=== PATIENT | female | born 1965 | race Caucasian/White ===

== ENCOUNTER 2017-02-03 07:18 | Emergency (ER) | payer SELFPAY ==
[~2017-02-03] VITALS: Ht 152.4 cm; Wt 70.0 kg
[~2017-02-03 07:18] MED LIST: ALBU.5I INH; ALBU1.25 NEB; ALBU17I INH; ALPR-138 PO; LORT5TAB PO; PRED50TA PO; PRIM0.224 INH; SOMA350T PO; VENTAER INH
[2017-02-03 07:30] VITALS: BP 177/106; PULSE 84; RESP 26; TEMP 97.5; O2SAT 98
[2017-02-03] MEDS ORDERED: VENTAER INH ×2 (07:30→07:44)
[2017-02-03] MEDS ORDERED: PRED20 PO (07:44)
[2017-02-03] MEDS ORDERED: ALBU0.08 NEB (07:44)
--- NOTE | 2017-02-03 07:44 | PD ---
HPI . Shortness of breath Chief Complaint: Respiratory Symptoms Time Seen by Provider: 07:30 Travel History International Travel<30 days: No Contact w/Intl Traveler<30days: No Traveled to known affect area: No History of Present Illness HPI Patient presents stating loudly in complete sentences that she is short of breath. She reports chronic shortness of breath. She states that she ran out of her pro-air about 24 hours ago. She also states that she uses albuterol nebs but has been out of the neb solution for about a week. She states that she has a cold and has had mucus in her chest. She denies associated fever. [id number]: Chest SEVERITY: Severe DURATION: Chronic TIMING: Worse for the past 24 hours CONTEXT: Out of her pro-air ASSOCIATED SYMPTOMS: Clear sputum PFSH Past Medical History Asthma: Yes Diminished Hearing: No Musculoskeletal: Yes (Chronic back pain) Tetanus Vaccination: Unknown Influenza Vaccination: No ?: Not Menopausal: Yes Tubal Ligation: Yes Past Surgical History Section: Yes (X's 3) Social History Alcohol Use: No Tobacco Use: No Substance Use: No (Denies today) Allergies-Medications (Allergen,Severity, Reaction): Coded Allergies: Aspirin (Verified Adverse Reaction, Severe, GI upset, 02/03/17) Reported Meds & Prescriptions Reported Meds & Active Scripts Active Prednisone 20 Mg Tab 60 Mg PO DAILY 5 Days Albuterol Neb (Albuterol Sulfate) 2.5 Mg/3 Ml Neb 2.5 Mg NEB Q4HR NEB While awake Ventolin Hfa 18 GM Inh (Albuterol Sulfate) 90 Mcg/Act Aer 2 Puff INH Q4-6H PRN Review of Systems Except as stated in HPI: all other systems reviewed are Neg General / Constitutional: No: Fever, Chills Cardiovascular: No: Chest Pain or Discomfort Respiratory: Positive: Cough, Shortness of Breath, Wheezing Gastrointestinal: No: Nausea, Vomiting, Diarrhea Physical Exam Narrative GENERAL: Extremely anxious and tearful. SKIN: Warm and dry. HEAD: Atraumatic. Normocephalic. EYES: Pupils equal and round. ENT: No nasal bleeding or discharge. Mucous membranes pink and moist. NECK: Trachea midline. CARDIOVASCULAR: Regular rate and rhythm. Heart sounds are normal. RESPIRATORY: No accessory muscle use. She is able to speak in complete sentences that any respiratory distress. She does have diffuse inspiratory and expiratory wheezing. GASTROINTESTINAL: Abdomen soft, non-tender, nondistended. MUSCULOSKELETAL: No obvious deformities. No edema. NEUROLOGICAL: Awake and alert. No obvious cranial nerve deficits. Motor grossly within normal limits. Normal speech. PSYCHIATRIC: Appropriate mood and affect; insight and judgment normal. Data Data Last Documented VS Vital Signs Date Time Temp Pulse Resp B/P Pulse Ox O2 Delivery O2 Flow Rate FiO2 02/03/17 07:30 26 98 Nasal Cannula 2 02/03/17 07:30 97.5 84 177/106 Orders Albuterol-Ipratropium Neb (Duoneb Neb) (02/03/17 07:45) Prednisone (Deltasone) (02/03/17 07:45) [facility] Medical Decision Making Medical Screen Exam Complete: Yes Emergency Medical Condition: Yes Medical Record Reviewed: Yes (patient was seen here in frequently with asthma exacerbation.) Differential Diagnosis Differential diagnosis of dyspnea includes but is not limited to congestive heart failure, pneumonia, wheezing, pneumothorax, pulmonary embolism Narrative Course Patient with a history of asthma presents complaining with increased shortness of breath over the course the last 24 hours. She is out of her inhaler. Following nebs, the patient reports that her respiratory status is back to her baseline. She does have persistent expiratory wheezing. Diagnosis Primary Impression: Acute asthma exacerbation Qualified Code: J45.31 - Mild persistent asthma with acute exacerbation Scripts Prednisone 20 Mg Tab60 Mg PO DAILY 5 Days Ref 0 Prov:Krupa Snyder MD 02/03/17 Albuterol Neb 2.5 Mg/3 Ml Neb2.5 Mg NEB Q4HR NEB #60 NEBULE Ref 0 While awake Prov:Krupa Snyder MD 02/03/17 Albuterol 18 GM Inh (Ventolin Hfa 18 GM Inh)90 Mcg/Act Aer2 Puff INH Q4-6H PRN ( SHORTNESS OF BREATH) #1 INHALER Ref 0 Prov:Krupa Snyder MD 02/03/17 Disposition: 01 DISCHARGE HOME Condition: Stable Krupa Snyder MD Feb 03, 2017 07:44
[2017-02-03] MEDS ORDERED: predniSONE 20 MG TAB PO ONE (07:45)
[2017-02-03] MEDS: RESP: ALBUTEROL 2.5 MG/IPRATROPIUM 0.5 MG NEB (SCH) INH ×2 (07:50→07:51)
== END 2017-02-03 08:25 | disposition home or self-care (01) ==
LOC: PHED 07:18
DX: J45.901 Unspecified asthma with (acute) exacerbation (principal); G89.29 Other chronic pain
CPT/HCPCS: 94640; 94664; 99284; J7512

== ENCOUNTER 2017-04-04 20:30 | Emergency (ER) | payer SELFPAY ==
[~2017-04-04] VITALS: Ht 157.5 cm; Wt 72.0 kg
[~2017-04-04 20:30] MED LIST changes: -ALBU.5I INH; +ALBU0.08 NEB; -ALBU1.25 NEB; -ALBU17I INH; -ALPR-138 PO; -LORT5TAB PO; +PRED20 PO; -PRED50TA PO; -PRIM0.224 INH; -SOMA350T PO
[2017-04-04 20:45] VITALS: BP 115/82; PULSE 100; RESP 17; TEMP 98.4; O2SAT 95
[2017-04-04] MEDS ORDERED: SODIUM CHLORIDE 0.9% FLUSH 10 ML FLUSH IVF PRN (20:45)
[2017-04-04 20:54] VITALS: RESP 17; O2SAT 100
[2017-04-04 20:56] VITALS: BP 108/75; PULSE 92; RESP 16; O2SAT 100
--- NOTE | 2017-04-04 20:59 | PD ---
HPI Chief Complaint: Respiratory Distress Time Seen by Provider: 20:44 Travel History International Travel<30 days: No Contact w/Intl Traveler<30days: No Traveled to known affect area: No History of Present Illness HPI 51-year-old female presents emergency Department with shortness of breath. She has a history of asthma. She states she's been out of her rescue inhaler for the past week. She went out to the store and became short of breath approximately 20 minutes prior to arrival. EMS found her short of breath with neutral set of 100%. She was given albuterols for wheezing as well as thiamine 225 mg in route. On arrival the patient states she is feeling a lot better. She states that she has albuterol for her machine at home but it has not been working. She denies any history of chest pain fevers upper respiratory symptoms hemoptysis. States she's quit smoking approximately one year ago. PFSH Past Medical History Asthma: Yes Diminished Hearing: No Musculoskeletal: Yes (Chronic back pain) Respiratory: Yes (ASTHMA) ?: Not Menopausal: Yes Tubal Ligation: Yes Past Surgical History Section: Yes (X's 3) Social History Alcohol Use: Yes Tobacco Use: No (QUIT 2015) Substance Use: No (Denies today) Allergies-Medications (Allergen,Severity, Reaction): Coded Allergies: Aspirin (Verified Adverse Reaction, Severe, GI upset, 04/04/17) Reported Meds & Prescriptions Reported Meds & Active Scripts Active Prednisone 20 Mg Tab 60 Mg PO DAILY 5 Days Albuterol Neb (Albuterol Sulfate) 2.5 Mg/3 Ml Neb 2.5 Mg NEB Q4HR NEB While awake Ventolin Hfa 18 GM Inh (Albuterol Sulfate) 90 Mcg/Act Aer 2 Puff INH Q4-6H PRN Review of Systems Except as stated in HPI: all other systems reviewed are Neg Physical Exam Narrative GENERAL: Well-developed well-nourished no apparent distress SKIN: Focused skin assessment warm/dry. HEAD: Atraumatic. Normocephalic. EYES: Pupils equal and round. No scleral icterus. No injection or drainage. ENT: No nasal bleeding or discharge. Mucous membranes pink and moist. NECK: Trachea midline. No JVD. CARDIOVASCULAR: Regular rate and rhythm. No murmur appreciated. RESPIRATORY: No accessory muscle use. Expiratory wheezing throughout all lung lay fairly mild. Breath sounds equal bilaterally. Good air entry throughout no increased work of breathing no retractions. GASTROINTESTINAL: Abdomen soft, non-tender, nondistended. Hepatic and splenic margins not palpable. MUSCULOSKELETAL: No obvious deformities. No clubbing. No cyanosis. No edema. NEUROLOGICAL: Awake and alert. No obvious cranial nerve deficits. Motor grossly within normal limits. Normal speech. PSYCHIATRIC: Appropriate mood and affect; insight and judgment normal. Data Data Last Documented VS Vital Signs Date Time Temp Pulse Resp B/P Pulse Ox O2 Delivery O2 Flow Rate FiO2 04/04/17 21:14 97 21 04/04/17 20:56 92 16 108/75 Room Air 04/04/17 20:45 98.4 Orders Electrocardiogram (04/04/17 20:44) Basic Metabolic Panel (Bmp) (04/04/17 20:44) Complete Blood Count With Diff (04/04/17 20:44) Chest, Single Ap (04/04/17 20:44) Ecg Monitoring (04/04/17 20:44) Iv Access Insert/Monitor (04/04/17 20:44) Oximetry (04/04/17 20:44) Oxygen Administration (04/04/17 20:44) Sodium Chloride 0.9% Flush (Ns Flush) (04/04/17 20:45) Albuterol-Ipratropium Neb (Duoneb Neb) (04/04/17 21:00) Labs Laboratory Tests Test 04/04/17 21:00 White Blood Count 6.5 TH/MM3 Red Blood Count 4.87 MIL/MM3 Hemoglobin 15.6 GM/DL Hematocrit 45.8 % Mean Corpuscular Volume 94.0 FL Mean Corpuscular Hemoglobin 32.1 PG Mean Corpuscular Hemoglobin 34.1 % Concent Red Cell Distribution Width 13.4 % Platelet Count 206 TH/MM3 Mean Platelet Volume 8.4 FL Neutrophils (%) (Auto) 69.1 % Lymphocytes (%) (Auto) 17.2 % Monocytes (%) (Auto) 8.6 % Eosinophils (%) (Auto) 4.2 % Basophils (%) (Auto) 0.9 % Neutrophils # (Auto) 4.5 TH/MM3 Lymphocytes # (Auto) 1.1 TH/MM3 Monocytes # (Auto) 0.6 TH/MM3 Eosinophils # (Auto) 0.3 TH/MM3 Basophils # (Auto) 0.1 TH/MM3 CBC Comment DIFF FINAL Differential Comment Sodium Level 138 MEQ/L Potassium Level 4.2 MEQ/L Chloride Level 99 MEQ/L Carbon Dioxide Level 31.5 MEQ/L Anion Gap 8 MEQ/L Blood Urea Nitrogen 17 MG/DL Creatinine 0.89 MG/DL Estimat Glomerular Filtration 66 ML/MIN Rate Random Glucose 89 MG/DL Calcium Level 8.6 MG/DL MDM Medical Decision Making Medical Screen Exam Complete: Yes Emergency Medical Condition: Yes Interpretation(s) EKG shows normal sinus rhythm normal axis normal R-wave progression. No concerning ST T changes. Nonspecific low voltage in aVL. Intervals within normal limits. This is a normal EKG. Differential Diagnosis Asthma exacerbation, pneumonia, bronchitis, COPD. Narrative Course Patient was roomed in the emergency department, she was given additional DuoNeb treatment here. She appears well in no respiratory distress. She does have wheezing in lung lay. She was observed in the emergency department for some time and had no decline here. She states she would like to go home. Prescription written for her and discussed return to ED criteria need follow-up with primary care physician. She stable for discharge at this time. Last 24 hours Impressions Chest X-Ray 04/04/172043 Signed Impressions: Service Date/Time: Tuesday, April 04, 2017 21:07 - CONCLUSION: 1. No acute cardiopulmonary disease. Vish Stringer MD Diagnosis Primary Impression: Acute asthma exacerbation Med/Other Pt SpecificInfo: Prescription(s) given Scripts Prednisone 20 Mg Tab60 Mg PO DAILY 5 Days Ref 0 Prov:Timmy Pino MD 04/04/17 Albuterol Neb 2.5 Mg/3 Ml Neb2.5 Mg NEB Q4HR NEB #60 NEBULE Ref 0 While awake Prov:Timmy Pino MD 04/04/17 Albuterol 18 GM Inh (Ventolin Hfa 18 GM Inh)90 Mcg/Act Aer2 Puff INH Q4-6H PRN ( SHORTNESS OF BREATH) #1 INHALER Ref 1 Prov:Timmy Pino MD 04/04/17 Disposition: 01 DISCHARGE HOME Condition: Stable Timmy Pino MD April 04, 2017 20:59
[2017-04-04] MEDS ORDERED: RESP: ALBUTEROL 2.5 MG/IPRATROPIUM 0.5 MG NEB (SCH) NEB ONE (21:00)
[2017-04-04 21:14] VITALS: O2SAT 97
[2017-04-04 21:14] LABS: AUTOMATED NEUTROPHIL # 4.5 TH/MM3 (1.8-7.7); BASOPHIL # 0.1 TH/MM3 (0-0.2); BASOPHIL % 0.9 % (0.0-2.0); EOSINOPHIL # 0.3 TH/MM3 (0-0.4); EOSINOPHIL % 4.2 % (0.0-4.0); HEMATOCRIT 45.8 % (35.0-46.0); HEMO FLAGS DIFF FINAL; LYMPH % 17.2 % (9.0-44.0); LYMPHOCYTE # 1.1 TH/MM3 (1.0-4.8); MEAN CORPUSCULAR HEMOGLOBIN 32.1 PG (27.0-34.0); MEAN CORPUSCULAR HGB CONC 34.1 % (32.0-36.0); MONO % 8.6 % (0.0-8.0); NEUT % 69.1 % (16.0-70.0); PLATELET COUNT 206 TH/MM3 (150-450); RED BLOOD COUNT 4.87 MIL/MM3 (4.00-5.30); RED CELL DISTRIBUTION WIDTH 13.4 % (11.6-17.2); WHITE BLOOD COUNT 6.5 TH/MM3 (4.0-11.0)
[2017-04-04] MEDS ORDERED: VENTAER INH (21:28)
[2017-04-04] MEDS ORDERED: PRED20 PO (21:28)
[2017-04-04] MEDS ORDERED: ALBU0.08 NEB (21:28)
[2017-04-04 21:30] LABS: BICARBONATE 31.5 MEQ/L (21.0-32.0); POTASSIUM 4.2 MEQ/L (3.5-5.1)
--- NOTE | 2017-04-04 21:47 | RADRPT ---
EXAM DATE/TIME: 04/04/2017 21:07 [facility] COMPARISON: No previous studies available for comparison. INDICATIONS : Patient states she had asthma attack today. Shortness of breath. MEDICAL HISTORY : Asthma. SURGICAL HISTORY : None. ENCOUNTER: Initial ACUITY: 1 day PAIN SCORE: 0/10 LOCATION: chest FINDINGS: A single view of the chest demonstrates the lungs to be symmetrically aerated without evidence of mas s, infiltrate or effusion. The cardiomediastinal contours are unremarkable. Osseous structures are intact.CONCLUSION: 1. No acute cardiopulmonary disease. Vish Stringer MD on April 04, 2017 at 21:44 Board Certified Radiologist. This report was verified electronically.
--- NOTE | 2017-04-05 14:46 | EKG ---
Date Performed: 04/04/2017 Time Performed: 20:56:06 PTAGE: 51 years EKG: Sinus rhythm Previous ST depression has resolved NORMAL ECG PREVIOUS TRACING : 05/03/2010 05.35 DOCTOR: Mike Manzanares Interpretating Date/Time 04/05/2017 14:44:08
== END 2017-04-04 22:42 | disposition home or self-care (01) ==
LOC: NEPC 20:30
DX: J45.901 Unspecified asthma with (acute) exacerbation (principal)
CPT/HCPCS: 71010; 80048; 85025; 93005; 94664

== ENCOUNTER 2017-05-16 17:55 | Emergency (ER) | payer SELFPAY ==
[2017-05-16 17:58] VITALS: BP 110/75; PULSE 111; RESP 24; TEMP 97.8; O2SAT 92
[2017-05-16] MEDS: RESP: ALBUTEROL 2.5 MG/IPRATROPIUM 0.5 MG NEB (SCH) INH (18:13)
[2017-05-16] MEDS ORDERED: SODIUM CHLORIDE 0.9% FLUSH 10 ML FLUSH IVF PRN (18:15)
[2017-05-16] MEDS ORDERED: predniSONE 50 MG TAB PO ONE (18:15)
--- NOTE | 2017-05-16 18:16 | RADRPT ---
EXAM DATE/TIME: 05/16/2017 18:08 [facility] COMPARISON: CHEST SINGLE AP, April 04, 2017, 21:07. INDICATIONS : Short of breath. MEDICAL HISTORY : Asthma. SURGICAL HISTORY : None. ENCOUNTER: Initial ACUITY: 1 day PAIN SCORE: 7/10 LOCATION: Bilateral chest FINDINGS: Density at the right cardiophrenic angle is unchanged and may be epicardial fat-pad. Chest is otherwi se stable and clear with no evidence of effusion. Heart size and pulmonary vascularity within normal limits. CONCLUSION: Stable chest. Danish Rodriguez MD on May 16, 2017 at 18:12 Board Certified Radiologist. This report was verified electronically.
--- NOTE | 2017-05-16 18:18 | PD ---
HPI Chief Complaint: Respiratory Symptoms Time Seen by Provider: 18:01 Travel History International Travel<30 days: No Contact w/Intl Traveler<30days: No Traveled to known affect area: No History of Present Illness HPI 51-year-old female with history of asthma here for evaluation of shortness of breath/asthma exacerbation. Symptoms started this morning. Patient reports that she is out of her albuterol inhaler. Dyspnea is at rest and worse with exertion. She denies chest pain. She states that she quit smoking over a year ago. She reports that she had the flu earlier this year, and since then her asthma exacerbations have been more frequent. She has not seen a primary care physician for these frequent attacks. No known history of CAD. No history of DVT or PE. PFSH Past Medical History Asthma: Yes Diminished Hearing: No Musculoskeletal: Yes (Chronic back pain) Respiratory: Yes (ASTHMA) Menopausal: Yes Tubal Ligation: Yes Past Surgical History Section: Yes (X's 3) Social History Alcohol Use: Yes Tobacco Use: No (QUIT 2015) Substance Use: No (Denies today) Allergies-Medications (Allergen,Severity, Reaction): Coded Allergies: Aspirin (Verified Adverse Reaction, Severe, GI upset, 05/16/17) Reported Meds & Prescriptions Reported Meds & Active Scripts Active Prednisone 20 Mg Tab 60 Mg PO DAILY 5 Days Albuterol Neb (Albuterol Sulfate) 2.5 Mg/3 Ml Neb 2.5 Mg NEB Q4HR NEB While awake Ventolin Hfa 18 GM Inh (Albuterol Sulfate) 90 Mcg/Act Aer 2 Puff INH Q4-6H PRN Review of Systems Except as stated in HPI: all other systems reviewed are Neg Physical Exam Narrative GENERAL: Well-developed, well-nourished, accessory muscle use, speaking a few words at a time, audible wheezing SKIN: Focused skin assessment warm/dry. HEAD: Atraumatic. Normocephalic. EYES: Pupils equal and round. No scleral icterus. No injection or drainage. ENT: Mucous membranes pink and moist. NECK: Trachea midline. No JVD. CARDIOVASCULAR: Regular rate and rhythm. RESPIRATORY: Accessory muscle use. Tripod position. Moderate respiratory distress. Speaking a few words at a time. Inspiratory and expiratory wheezes bilaterally. No rales or rhonchi. MUSCULOSKELETAL: No obvious deformities. No clubbing. No cyanosis. No edema. NEUROLOGICAL: Awake and alert. No obvious cranial nerve deficits. Motor grossly within normal limits. Normal speech. PSYCHIATRIC: Appropriate mood and affect; insight and judgment normal. Data Data Last Documented VS Vital Signs Date Time Temp Pulse Resp B/P Pulse Ox O2 Delivery O2 Flow Rate FiO2 05/16/17 19:01 Aerosol Mask 05/16/17 18:55 105 16 118/94 91 05/16/17 17:58 97.8 Orders Iv Access Insert/Monitor (05/16/17 18:05) Ecg Monitoring (05/16/17 18:05) Oximetry (05/16/17 18:05) Oxygen Administration (05/16/17 18:05) Chest, Single Ap (05/16/17 18:05) Sodium Chloride 0.9% Flush (Ns Flush) (05/16/17 18:15) Albuterol-Ipratropium Neb (Duoneb Neb) (05/16/17 18:15) Prednisone (Deltasone) (05/16/17 18:15) Albuterol Neb (Albuterol Neb) (05/16/17 18:45) Albuterol Hfa Inh (Proair Hfa Inh) (05/16/17 20:15) MDM Medical Decision Making Medical Screen Exam Complete: Yes Emergency Medical Condition: Yes Medical Record Reviewed: Yes Differential Diagnosis Asthma exacerbation, pneumothorax, pneumonia, bronchitis, PE, ACS Narrative Course Initial vital signs show heart rate 111, blood pressure 110/75, pulse ox 92% on room air, temporal temp of 97.8F. Chest x-ray: FINDINGS: Density at the right cardiophrenic angle is unchanged and may be epicardial fat- pad. Chest is otherwise stable and clear with no evidence of effusion. Heart size and pulmonary vascularity within normal limits. CONCLUSION: Stable chest. 6:45 PM: Patient was reassessed and states she is feeling significantly improved. She still wheezing bilaterally, however she does sound improved and looks a lot more comfortable. O2 saturation is 93% on room air. Patient was provided 3 DuoNeb treatments and oral prednisone. Plan is to give her 3 more nebulizer treatments, this time with albuterol, and reassess. 8:00 PM: Patient reports that she feels significantly improved and would like to be discharged home. I will discharge her home with a prescription for albuterol and prednisone. I will give her the information to the [facility] where she should follow-up this week. She was informed on when to return to the emergency department patient verbalizes understanding and agreement with plan. Diagnosis Primary Impression: Acute asthma exacerbation Qualified Code: J45.901 - Asthma with acute exacerbation, unspecified asthma severity Referrals: [facility] 3 days Additional Instructions: Follow-up with a primary care physician this week. Take medications as prescribed. Return to the emergency department for worsening symptoms or any other concerns. Scripts Prednisone 50 Mg Tab50 Mg PO DAILY 5 Days Ref 0 Prov:Oj Moore MD 05/16/17 Albuterol 18 GM Inh (Ventolin Hfa 18 GM Inh)90 Mcg/Act Aer1 Puff INH Q4H PRN ( SHORTNESS OF BREATH) #1 INHALER Ref 0 Prov:Oj Moore MD 05/16/17 Disposition: 01 DISCHARGE HOME Condition: Stable Oj Moore MD May 16, 2017 18:18
[2017-05-16] MEDS: RESP: ALBUTEROL 2.5 MG/3 ML NEB (SCH) INH ×2 (18:45→18:58)
[2017-05-16 18:55] VITALS: BP 118/94; PULSE 105; RESP 16; O2SAT 91
[2017-05-16 20:05] VITALS: BP 117/73; PULSE 103; RESP 20; O2SAT 91
[2017-05-16] MEDS ORDERED: VENTAER INH (20:05)
[2017-05-16] MEDS ORDERED: PRED50 PO (20:05)
[2017-05-16] MEDS ORDERED: ALBUTEROL SULFATE 90 MCG/ACT HFA 8 GM INHALER INH ONE (20:15)
[2017-05-16] MEDS ORDERED: ALBUTEROL SULFATE 90 MCG/ACT HFA 18 GM INHALER INH ONE (20:15)
== END 2017-05-16 20:15 | disposition home or self-care (01) ==
LOC: PHED 17:55
DX: J45.901 Unspecified asthma with (acute) exacerbation (principal); Z87.891 Personal history of nicotine dependence
CPT/HCPCS: 71010; 94640; 94664; 99285; J7512; J7613

== ENCOUNTER 2017-09-19 04:21 | Emergency (ER) | payer SELFPAY ==
[~2017-09-19] VITALS: Ht 165.1 cm; Wt 70.5 kg
[~2017-09-19 04:21] MED LIST changes: +PRED50 PO
[2017-09-19 04:25] VITALS: BP 169/108; PULSE 90; RESP 18; TEMP 98.6; O2SAT 92
[2017-09-19] MEDS ORDERED: ONDANSETRON HCL 4 MG/2 ML VIAL IV PUSH ONE (04:30)
[2017-09-19] MEDS ORDERED: MORPHINE SULFATE 8 MG/ML INJ IV PUSH ONE (04:30)
[2017-09-19] MEDS ORDERED: RESP: ALBUTEROL 2.5 MG/IPRATROPIUM 0.5 MG NEB (SCH) NEB ONE (04:30)
[2017-09-19] MEDS ORDERED: KETOROLAC TROMETHAMINE 30 MG/ML (IVP) VIAL IV PUSH ONE (04:30)
--- NOTE | 2017-09-19 04:36 | PD ---
HPI Chief Complaint: Burn Time Seen by Provider: 04:32 Travel History International Travel<30 days: No Contact w/Intl Traveler<30days: No Traveled to known affect area: No History of Present Illness HPI 52-year-old female with COPD presents to the emergency department with thermal burn to the dorsum of the left foot. Patient states just prior to arrival to the emergency department she spilled hot tea on the dorsum of her foot that had just been taken out of the microwave. Patient presents with interrupted blister to the dorsum of the left foot. Patient states tetanus immunization within the past year. Patient rates pain 10 over 10 intensity. Patient denies other injury. Patient is taking no medications prior to arrival to the emergency department applied no medications to the foot. PFSH Past Medical History Narrative Medical Asthma COPD chronic back pain no tobacco use 1 year cocaine use; nursing notes reviewed Asthma: Yes Diminished Hearing: No Musculoskeletal: Yes (Chronic back pain) Respiratory: Yes (ASTHMA) Menopausal: Yes Tubal Ligation: Yes Past Surgical History Section: Yes (X's 3) Social History Alcohol Use: Yes Tobacco Use: No (QUIT 2015) Substance Use: No (Denies today) Allergies-Medications (Allergen,Severity, Reaction): Coded Allergies: aspirin (Unverified Adverse Reaction, Severe, GI upset, 07/03/17) Reported Meds & Prescriptions Reported Meds & Active Scripts Active Silvadene Topical (Silver Sulfadiazine) 1 % Cream 1 Applic TOPICAL DAILY 7 Days Medrol Dosepak (Methylprednisolone) 4 Mg Dspk 4 Mg PO DIRECTED Per Pharmacist direction Ventolin Hfa 18 GM Inh (Albuterol Sulfate) 90 Mcg/Act Aer 2 Puff INH Q4-6H PRN Prednisone 50 Mg Tab 50 Mg PO DAILY 5 Days Ventolin Hfa 18 GM Inh (Albuterol Sulfate) 90 Mcg/Act Aer 1 Puff INH Q4H PRN Prednisone 20 Mg Tab 60 Mg PO DAILY 5 Days Albuterol Neb (Albuterol Sulfate) 2.5 Mg/3 Ml Neb 2.5 Mg NEB Q4HR NEB While awake Ventolin Hfa 18 GM Inh (Albuterol Sulfate) 90 Mcg/Act Aer 2 Puff INH Q4-6H PRN Review of Systems Except as stated in HPI: all other systems reviewed are Neg General / Constitutional: No: Fever HENT: No: Congestion Cardiovascular: No: Chest Pain or Discomfort Respiratory: Positive: Shortness of Breath Gastrointestinal: No: Abdominal Pain Genitourinary: No: Flank Pain Musculoskeletal: Positive: Pain (left foot), No: Myalgias, Arthralgias Skin: Positive Other (left foot) Neurologic: No: Weakness Psychiatric: Positive: Anxiety Hematologic/Lymphatic: No: Lymph Node Enlargement Physical Exam Narrative GENERAL: Well-developed well-nourished female in obvious discomfort crying; GCS 15 SKIN: Warm and dry. HEAD: Normocephalic. EYES: No scleral icterus. No injection or drainage. NECK: Supple, trachea midline. No JVD or lymphadenopathy. CARDIOVASCULAR: Regular rate and rhythm without murmurs, gallops, or rubs. RESPIRATORY: Breath sounds equal bilaterally with few bilateral expiratory wheezes. No accessory muscle use. GASTROINTESTINAL: Abdomen soft, non-tender, nondistended. MUSCULOSKELETAL: No cyanosis, or edema. Attention to the left foot dorsal aspect interrupted blister sparing the intertriginous spaces 5 cm x 6 cm, BSA:1 % BACK: Nontender without obvious deformity. No CVA tenderness. Data Data Last Documented VS Vital Signs Date Time Temp Pulse Resp B/P (MAP) Pulse Ox O2 Delivery O2 Flow Rate FiO2 09/19/17 05:12 84 15 145/84 (104) 97 09/19/17 04:25 98.6 Orders Orders ^ Saline Lock (09/19/17 04:26) Ondansetron Inj (Zofran Inj) (09/19/17 04:30) Morphine Inj (Morphine Inj) (09/19/17 04:30) Albuterol-Ipratropium Neb (Duoneb Neb) (09/19/17 04:30) Ketorolac Inj (Toradol Inj) (09/19/17 04:30) Silver Sulfadia 1% Crm (50 Gm) (Silvaden (09/19/17 05:15) MDM Medical Decision Making Medical Screen Exam Complete: Yes Emergency Medical Condition: Yes Medical Record Reviewed: Yes Differential Diagnosis First-degree burn, secondary/partial thickness burn, exacerbation COPD asthma Narrative Course IV access obtained patient administered Toradol 30 mg IV, Zofran 4 mg IV, morphine sulfate 4 mg IV, DuoNeb updraft 1, cool moist hot compresses applied to dorsum of foot Wound site irrigated with paramedics Silvadene dressing applied Patient reports to her nurse positive cocaine use Diagnosis Primary Impression: Partial thickness burn of left foot Additional Impressions: H/O cocaine abuse Asthma exacerbation, mild Medication refill Referrals: Primary Care Physician 2 days Patient Instructions: Narcotic given in the ED, General Instructions Med/Other Pt SpecificInfo: Prescription(s) given Scripts Silver Sulfadiazine Topical (Silvadene Topical) 1 % Cream 1 APPLIC TOPICAL DAILY for Wound Management for 7 Days, #400 GM 0 Refills Prov: Aalina Day MD 09/19/17 Methylprednisolone Dosepak (Medrol Dosepak) 4 Mg Dspk 4 MG PO DIRECTED, #1 DSPK 0 Refills Per Pharmacist direction Prov: Alaina Day MD 09/19/17 Albuterol 18 GM Inh (Ventolin Hfa 18 GM Inh) 90 Mcg/Act Aer 2 PUFF INH Q4-6H Y for SHORTNESS OF BREATH, #1 INHALER 0 Refills Prov: Alaina Day MD 09/19/17 Disposition: 01 DISCHARGE HOME Condition: Stable Alaina Day MD Sep 19, 2017 04:36
[2017-09-19 05:12] VITALS: BP 145/84; PULSE 84; RESP 15; O2SAT 97
[2017-09-19] MEDS ORDERED: VENTAER INH (05:14)
[2017-09-19] MEDS ORDERED: SILV1CRE20 TOPICAL (05:14)
[2017-09-19] MEDS ORDERED: MEDR4PAK PO (05:14)
[2017-09-19] MEDS ORDERED: SILVER SULFADIAZINE 1% CR 50 GM JAR TOPICAL ONE (05:15)
== END 2017-09-19 06:17 | disposition home or self-care (01) ==
LOC: PHED 04:21
DX: T25.022A Burn of unspecified degree of left foot, initial encounter (principal); F14.10 Cocaine abuse, uncomplicated; J45.901 Unspecified asthma with (acute) exacerbation; J44.9 Chronic obstructive pulmonary disease, unspecified; X10.0XXA Contact with hot drinks, initial encounter; Z76.0 Encounter for issue of repeat prescription; Z87.891 Personal history of nicotine dependence
CPT/HCPCS: 16020; 94664; 96374; 96375; 99284; J1885; J2270; J2405

== ENCOUNTER 2018-11-14 10:34 | Inpatient (IN) ==
--- NOTE | 2018-11-14 11:03 | XR ---
EXAM DATE: 11/14/2018 10:58 AM EST AGE/SEX: 53 years / Female INDICATIONS: Severe shortness of breath. CLINICAL DATA: This is the patient's initial encounter. Patient reports that signs and symptoms have been present for 1 day and indicates a pain score of 0/10. MEDICAL/SURGICAL HISTORY: Asthma. None. COMPARISON: [facility] – [place], CHEST SINGLE AP, 04/04/2017. . FINDINGS: There is diffuse mild reticulonodular interstitial prominence. This may be slightly progressed from p rior exam. No evidence of consolidative infiltrate or significant effusion. Cardiac silhouette is unc hanged with stable right cardiophrenic angle density which is presumably epicardial fat. CONCLUSION: Diffuse mild interstitial prominence which appears largely chronic. Electronically signed by: Danish Rodriguez MD Board Certified Radiologist 11/14/2018 11:01 AM EST
[2018-11-14 11:22] LABS: Baso # (Auto) 0.2 th/mm3 (0.0-0.2); Baso % (Auto) 2.7 % (0.0-2.0); Eos % (Auto) 0.5 % (0.0-4.0); Hematocrit 49.2 % (35.0-46.0); Hemoglobin 16.2 gm/dL (11.6-15.3); Lymph # (Auto) 0.6 th/mm3 (1.0-4.8); Lymph % (Auto) 8.3 % (9.0-44.0); Mean Corpuscular HGB Conc 32.9 % (32.0-36.0); Mean Corpuscular Hemoglobin 31.7 pg (27.0-34.0); Mean Corpuscular Volume 96.4 fL (80.0-100.0); Mean Platelet Volume 7.2 fL (7.0-11.0); Mono # (Auto) 0.4 th/mm3 (0.0-0.9); Neut # (Auto) 6.2 th/mm3 (1.8-7.7); Neut % (Auto) 83.5 % (16.0-70.0); Platelet Count 241 th/mm3 (150-450); Red Blood Count 5.11 mil/mm3 (4.00-5.30); Red Cell Distribution Width 14.5 % (11.6-17.2); White Blood Count 7.4 th/mm3 (4.0-11.0)
[2018-11-14 11:26] LABS: Chloride 95 meq/L (98-107); Potassium 3.4 meq/L (3.5-5.1); Sodium 137 meq/L (136-145)
[2018-11-14 11:29] LABS: Calcium 8.6 mg/dL (8.5-10.1)
[2018-11-14 11:30] LABS: Activated Partial Thrombo Time 36.1 sec (23.4-31.7); Albumin 2.9 g/dL (3.4-5.0); Anion Gap 6 meq/L (5-15); Blood Urea Nitrogen 5 mg/dL (7-18); Carbon Dioxide 35.8 meq/L (21.0-32.0); Glucose,Random 111 mg/dL (74-106); INR 1.3 Ratio; Magnesium 2.1 mg/dL (1.5-2.5); Prothrombin Time 13.1 sec (9.8-11.6)
[2018-11-14 11:33] LABS: Alanine Aminotransferase 32 U/L (10-53); Aspartate Aminotransferase 24 U/L (15-37); Glomerular Filtration Rate Greater Than 89 mL/min (>89)
[2018-11-14 11:35] LABS: Total Protein 7.7 g/dL (6.4-8.2)
[2018-11-14 11:36] LABS: Alkaline Phosphatase 92 U/L (45-117)
[2018-11-14 11:49] LABS: ABG Base Excess 10.1 mmol/L (-2-2); ABG PCO2 51 mmHg (38-42); ABG PO2 54 mmHg (61-120)
[2018-11-14] MEDS ORDERED: Oseltamivir Phosphate 75 MG Capsule PO ONE (12:04)
[2018-11-14] MEDS: Sod Chloride 0.9% Inj 1,000 ML IV.CONT SCH ×3 (12:23→21:03)
--- NOTE | 2018-11-14 12:54 | ED ---
HPI General Chief complaint: Respiratory Symptoms Stated complaint: SOB Time Seen by Provider: 11/14/18 10:43 Source: patient Mode of arrival: EMS Limitations: no limitations History of Present Illness HPI narrative: This 53-year-old female is complaining of shortness of breath. She says she has been short of breath for about 3 days and is getting progressively worse. She feels weak. She has not been eating well. She has a history of bronchitis. She does smoke cigarettes. Feeling short of breath and coughing. She does use a albuterol inhaler but has run out of it. We did obtain additional history that she has opiate addiction. She smokes opiates. Her thinks that some of her agitation may be secondary to opiate withdrawal Related Data Home Medications Medication Instructions Recorded Confirmed albuterol sulfate 1 puff INHALATION Q4-6H PRN 11/14/18 11/14/18 albuterol sulfate 1.25 mg INHALATION Q4H PRN 11/14/18 11/14/18 Allergies Allergy/AdvReac Type Severity Reaction Status Date / Time aspirin AdvReac Severe GI upset Verified 11/14/18 11:30 Review of Systems Constitutional Reports body ache(s), Reports night sweats, Reports poor appetite and Reports weakness PMFSH Medical History Medical History Bronchitis (Acute) Surgical History Surgical History H/O: (Acute) Social History Social History Substance History: No History of Abuse Second Hand Smoke Exposure: Yes Smoking Status: Current every day smoker Tobacco Type: Cigarettes How Often Do You Have a Drink Containing Alcohol: Never Recent Travel in [facility] within the Last 8 Weeks: No Recent Out of Country Travel within the Last 8 Weeks: No Immunization History Tetanus Immunization: <5 Years Exam Narrative Exam Narrative: GENERAL: Thin female in moderate respiratory distress SKIN: Focused skin assessment warm/dry. HEAD: Atraumatic. Normocephalic. EYES: Pupils equal and round. No scleral icterus. No injection or drainage. ENT: No nasal bleeding or discharge. Mucous membranes pink and moist. NECK: Trachea midline. No JVD. CARDIOVASCULAR: Rapid regular rate and rhythm. No murmur appreciated. RESPIRATORY: There is accessory muscle use. There are bilateral wheezes rhonchi GASTROINTESTINAL: Abdomen soft, non-tender, nondistended. Hepatic and splenic margins not palpable. MUSCULOSKELETAL: No obvious deformities. No clubbing. No cyanosis. No edema. NEUROLOGICAL: Awake and alert. No obvious cranial nerve deficits. Motor grossly within normal limits. Normal speech. PSYCHIATRIC: Appropriate mood and affect; insight and judgment normal. Course Initial Documented Vital Signs Temperature 98.6 F 11/14/18 10:43 Pulse Rate 94 H 11/14/18 10:43 Respiratory Rate 26 H 11/14/18 10:43 Blood Pressure 171/103 H 11/14/18 10:43 Pulse Oximetry 3 L 11/14/18 10:43 Last Documented Vital Signs Temperature 98.9 F 11/14/18 12:47 Pulse Rate 120 H 11/14/18 14:22 Respiratory Rate 22 11/14/18 14:22 Blood Pressure 175/88 H 11/14/18 14:22 Pulse Oximetry 97 11/14/18 14:22 Medical Decision Making [facility] Narrative Medical decision making narrative: Chest x-ray shows increased interstitial markings but no focal infiltrate. There is influenza test is positive for influenza A. She has been given Solu-Medrol by paramedics. We have given repeated doses of albuterol. Short of breath. A blood gas shows pH of 7.44 PCO2 of 51 and PO2 of 54. Trial of BiPAP was considered and we have put it on the patient. She has not tolerated it and has taken it off is short of breath without it will. We have given a small dose of Ativan to see if this will help her tolerate the BiPAP with the understanding that it may make intubation necessary. Patient has been quite frantic and agitated. I feel she should be intubated but the patient at this time is refusing intubation. she is awake and alert we did obtain history of opiate addiction and have given some morphine. I have discussed the case with Dr. Machado the ssn/ssbn assistant navigator the patient will be transferred to [place] intensive care unit as she is at high risk of clinical deterioration Medical Screen Exam Complete: Yes Emergency Medical Condition: Yes Differential Diagnosis Differential Diagnosis: Differential includes pneumonia, COPD, CHF Lab Data Result diagrams: 11/14/18 11:10 11/14/18 11:10 Lab Results 11/14/18 11/14/18 11/14/18 Range/Units 11:10 11:10 11:10 CBC w Diff Auto diff final WBC 7.4 (4.0-11.0) th/mm3 RBC 5.11 (4.00-5.30) mil/mm3 Hgb 16.2 H (11.6-15.3) gm/dL Hct 49.2 H (35.0-46.0) % MCV 96.4 (80.0-100.0) fL MCH 31.7 (27.0-34.0) pg MCHC 32.9 (32.0-36.0) % RDW 14.5 (11.6-17.2) % Plt Count 241 (150-450) th/mm3 MPV 7.2 (7.0-11.0) fL Neut % (Auto) 83.5 H (16.0-70.0) % Lymph % (Auto) 8.3 L (9.0-44.0) % [place] % (Auto) 5.0 (0.0-8.0) % Eos % (Auto) 0.5 (0.0-4.0) % Baso % (Auto) 2.7 H (0.0-2.0) % Neut # (Auto) 6.2 (1.8-7.7) th/mm3 Lymph # (Auto) 0.6 L (1.0-4.8) th/mm3 [place] # (Auto) 0.4 (0.0-0.9) th/mm3 Eos # (Auto) 0.0 (0.0-0.4) th/mm3 Baso # (Auto) 0.2 (0.0-0.2) th/mm3 WBC Differential . Differential Comment . PT 13.1 H (9.8-11.6) sec INR 1.3 Ratio APTT 36.1 H (23.4-31.7) sec Puncture Site Patient Temperature O2 Saturation (90-100) % ABG pH (7.380-7.420) ABG pCO2 (38-42) mmHg ABG pO2 (61-120) mmHg ABG HCO3 (22-26) mmol/L ABG O2 Content (12.0-20.0) Vol % ABG Base Excess (-2-2) mmol/L ABG Methemoglobin (0-2) % [place] Test Hemoglobin (12.0-16.0) G/DL Carboxyhemoglobin (0-4) % O2 Delivery Device Liter Flow L/M Critical Value Sodium 137 (136-145) meq/L Potassium 3.4 L (3.5-5.1) meq/L Chloride 95 L (98-107) meq/L Carbon Dioxide 35.8 H (21.0-32.0) meq/L Anion Gap 6 (5-15) meq/L BUN 5 L (7-18) mg/dL Creatinine 0.50 (0.50-1.00) mg/dL Estimated GFR Greater than 89 (>89) mL/min Random Glucose 111 H (74-106) mg/dL Lactic Acid (0.4-2.0) mmol/L Calcium 8.6 (8.5-10.1) mg/dL Magnesium 2.1 (1.5-2.5) mg/dL Total Bilirubin 0.7 (0.2-1.0) mg/dL AST 24 (15-37) U/L ALT 32 (10-53) U/L Alkaline Phosphatase 92 (45-117) U/L Troponin I Less than 0.02 L (0.02-0.05) ng/mL Total Protein 7.7 (6.4-8.2) g/dL Albumin 2.9 L (3.4-5.0) g/dL Ur Collection Type Urine Color (Yellw/Straw) Urine Clarity (Clear) Urine pH (5.0-8.5) Ur Specific [place] (1.002-1.035) Urine Protein (Neg-Trace) mg/dL Urine Glucose (UA) (Negative) mg/dL Urine Ketones (Negative) mg/dL Urine Occult Blood (Negative) Urine Nitrate (Negative) Urine Bilirubin (Negative) Urine Urobilinogen (Less than 2) mg/dL Ur Leukocyte Esterase (Negative) Urine WBC (0-5) /hpf Ur Squamous Epith Cells (0-5) /hpf Urine Trichomonas (None) /hpf Micro UA Comment Ur Microscopic Review Urine Culture Comments 11/14/18 11/14/18 11/14/18 Range/Units 11:10 11:40 12:55 CBC w Diff WBC (4.0-11.0) th/mm3 RBC (4.00-5.30) mil/mm3 Hgb (11.6-15.3) gm/dL Hct (35.0-46.0) % MCV (80.0-100.0) fL MCH (27.0-34.0) pg MCHC (32.0-36.0) % RDW (11.6-17.2) % Plt Count (150-450) th/mm3 MPV (7.0-11.0) fL Neut % (Auto) (16.0-70.0) % Lymph % (Auto) (9.0-44.0) % [place] % (Auto) (0.0-8.0) % Eos % (Auto) (0.0-4.0) % Baso % (Auto) (0.0-2.0) % Neut # (Auto) (1.8-7.7) th/mm3 Lymph # (Auto) (1.0-4.8) th/mm3 [place] # (Auto) (0.0-0.9) th/mm3 Eos # (Auto) (0.0-0.4) th/mm3 Baso # (Auto) (0.0-0.2) th/mm3 WBC Differential Differential Comment PT (9.8-11.6) sec INR Ratio APTT (23.4-31.7) sec Puncture Site Right radial Patient Temperature 98.6 O2 Saturation 83 L* (90-100) % ABG pH 7.44 H (7.380-7.420) ABG pCO2 51 H* (38-42) mmHg ABG pO2 54 L* (61-120) mmHg ABG HCO3 35 H (22-26) mmol/L ABG O2 Content 18.9 (12.0-20.0) Vol % ABG Base Excess 10.1 H (-2-2) mmol/L ABG Methemoglobin 1.2 (0-2) % [place] Test Present Hemoglobin 16.4 H (12.0-16.0) G/DL Carboxyhemoglobin 5.3 H* (0-4) % O2 Delivery Device Nasal cannula Liter Flow 6.00 L/M Critical Value Yes Sodium (136-145) meq/L Potassium (3.5-5.1) meq/L Chloride (98-107) meq/L Carbon Dioxide (21.0-32.0) meq/L Anion Gap (5-15) meq/L BUN (7-18) mg/dL Creatinine (0.50-1.00) mg/dL Estimated GFR (>89) mL/min Random Glucose (74-106) mg/dL Lactic Acid 1.0 (0.4-2.0) mmol/L Calcium (8.5-10.1) mg/dL Magnesium (1.5-2.5) mg/dL Total Bilirubin (0.2-1.0) mg/dL AST (15-37) U/L ALT (10-53) U/L Alkaline Phosphatase (45-117) U/L Troponin I (0.02-0.05) ng/mL Total Protein (6.4-8.2) g/dL Albumin (3.4-5.0) g/dL Ur Collection Type Clean catch Urine Color Straw (Yellw/Straw) Urine Clarity Clear (Clear) Urine pH 8.0 (5.0-8.5) Ur Specific [place] 1.015 (1.002-1.035) Urine Protein 100 H (Neg-Trace) mg/dL Urine Glucose (UA) Negative (Negative) mg/dL Urine Ketones Trace H (Negative) mg/dL Urine Occult Blood Trace (Negative) Urine Nitrate Negative (Negative) Urine Bilirubin Negative (Negative) Urine Urobilinogen 4.0 H (Less than 2) mg/dL Ur Leukocyte Esterase Trace H (Negative) Urine WBC 0-5 (0-5) /hpf Ur Squamous Epith Cells 0-5 (0-5) /hpf Urine Trichomonas Rare H (None) /hpf Micro UA Comment Culture not ind Ur Microscopic Review Microscopic reviewed Urine Culture Comments Culture not ind Imaging Data Radiologist's impression: Chest X-Ray 11/14/18 10:43 CONCLUSION: Diffuse mild interstitial prominence which appears largely chronic. Discharge Plan Discharge Disposition Patient Disposition: Transfer To [facility] [place] [place] Discharge Condition Condition: Critical Discharge Order Discharge Orders: ED Use Only Admit Order (Routine); Ordered 11/14/18 Ordered By: Paulino Ashley Discharge Details Diagnosis: Respiratory failure Physicians Team ED Provider: Paulino Ashley Primary Care Provider: Primary Care Physici,No Attending Provider: Mohsen Machado Rxs /Orders / Referrals /Forms Prescriptions: No Action albuterol sulfate 1.25 mg/3 mL Solution For Nebulization 1.25 mg INHALATION Q4H PRN (Reason: Wheezing) RF: 0 albuterol sulfate 90 mcg/actuation Hfa Aerosol Inhaler 1 puff INHALATION Q4-6H PRN (Reason: Wheezing) RF: 0 Discharge Interventions Interventions: Vital Signs Last Done: 11/14/18 14:22 Status ED Status: With Doctor
[2018-11-14 13:06] LABS: Bilirubin,Urine Negative (Negative); Clarity,Urine Clear (Clear); Glucose,Urine (UA) Negative (Negative); Leukocyte Esterase,Urine Trace (Negative); Nitrite,Urine Negative (Negative); Specific Gravity,Urine 1.015 (1.002-1.035)
[2018-11-14 13:09] LABS: Color,Urine Straw (Yellw/Straw)
[2018-11-14] MEDS ORDERED: Succinylcholine Inj 100 MG/5 ML Syringe IV.PUSH ONE (13:13)
[2018-11-14] MEDS ORDERED: Etomidate Inj 20 MG/10 ML Ampul IV.PUSH ONE (13:13)
[2018-11-14] MEDS ORDERED: Propofol 1000 mg/100 ml Inj 1,000 MG/100 ML BOTTLE IV.CONT PRN (13:14)
[2018-11-14] MEDS ORDERED: Morphine Inj 4 MG/ML Vial IV.PUSH ONE (13:32)
[2018-11-14 13:33] LABS: Squamous Epithelial Cell,Urine 0-5 /hpf (0-5); WBC,Urine 0-5 /hpf (0-5)
[2018-11-14 13:35] LABS: Trichomonas,Urine Rare /hpf
[2018-11-14] MEDS ORDERED: Acetaminophen 325 MG Tablet PO PRN (14:27)
[2018-11-14] MEDS ORDERED: Bisacodyl 10 MG Supp RECTAL PRN (14:27)
[2018-11-14] MEDS: Azithromycin Inj 500 MG in Sodium Chlor 0.9% Inj 250 ML IV.SIG SCH (17:16)
--- NOTE | 2018-11-14 17:27 | P.HPCC ---
History of Present Illness Service: ICU Primary Care Physician: No Primary Care Physician Chief Complaint: Shortness of breath History of Present Illness: This is a 53-year-old female that presented to [facility] emergency department. Per report the patient had worsening dyspnea over the last 3 days, such that she reported to the emergency department. The patient received Ativan and morphine in the emergency room. Imaging and laboratory studies were reviewed the patient was noted to be positive for influenza a antigen Tamiflu was initiated per the patient also was noted to report chronic ingestion of opioids by inhalation/smoking. The patient's medical history is significant for asthma, chronic opioid use via inhalation. Initiation of BiPAP was refused by the patient .The patient is at extreme risk for respiratory failure the patient was emergently transferred to [facility] and admitted to the ICU. Critical care medicine was consulted for management. per upon my evaluation of the patient patient was noted to be on a nonrebreather mask O2 sat 92%. I discussed with patient the criticality of her illness and requirement necessary to utilize BiPAP as she was at risk for possible emergent intubation. The patient agreed to utilize BiPAP. Currently the patient is satting at 95-97% on BiPAP 12/5 with FiO2 of 40%. The patient is very lethargic not cooperative in obtaining history and physical information obtained from medical records and staff. - Diagnosis (1) Acute hypoxemic respiratory failure (2) Asthma (3) Influenza A (4) Chronic narcotic dependence (5) Tobacco abuse disorder Inpatient Certification: I certify that the inpatient services were ordered in accordance with Medicare regulations governing the order. This includes certification that hospital inpatient services are reasonable and necessary and in the case of services not specified as inpatient-only under 42 CFR 419.22(n), that they are appropriately provided as inpatient services in accordance to with the 2-midnight benchmark under 43 CFR 412.3(e) Estimated Total Length of Stay (Days): 5 Plans for Post Hospital Care: Not yet determined Review of Systems All other systems reviewed negative except as stated in HPI, unobtainable due to mental status PMFSH - History History Provided By: Patient - Medical History Medical History: Medical History (Last Reviewed 11/22/18 @ 08:38 by Cari Mcknight) Bronchitis - Surgical History Surgical History: Surgical History (Last Reviewed 11/22/18 @ 08:38 by Cari Mcknight) H/O: - Tobacco History Second Hand Smoke Exposure: Yes Tobacco Use In Past 30 Days: Yes Smoking Status: Current every day smoker Tobacco Type: Cigarettes - Alcohol History How Often Do You Have a Drink Containing Alcohol: Never - Substance Use History Substance History: No History of Abuse - Travel History Recent Travel in the [place] Within the Last 8 Weeks: No Recent Travel Out of the Country Within the Last 8 Weeks: No - Immunization History Tetanus Immunization: <5 Years Medications and Allergies Active Medications: Active Medications Acetaminophen (Tylenol) 650 mg PO Q6H PRN PRN Reason: Fever >101f Hydrocodone Bitart/Acetaminophen ([place] 5/325) 1 tab PO Q4H PRN PRN Reason: PAIN SCALE 1 TO 5 Al Hydroxide/Mg Hydroxide (Milk Of Soren Liq) 30 ml PO Q12H PRN PRN Reason: Mild Constipation Albuterol (Albuterol Neb (Prn)) 2.5 mg NEB Q2HR NEB PRN PRN Reason: SHORTNESS OF BREATH/WHEEZING Albuterol (Duoneb Neb (Nnamdi)) 1 ampul NEB Q4HR NEB [facility] Bisacodyl (Dulcolax Supp) 10 mg RECTAL DAILY PRN PRN Reason: SEVERE CONSITIPATION Budesonide (Pulmocort Respule Neb) 0.5 mg NEB Q12HR NEB [facility] Chlorhexidine Gluconate (Chlorhexidine 2% Cloth) 3 pack TOPICAL DAILY@0400 NNAMDI Stop: 11/20/18 03:59 Chlorhexidine Gluconate (Chlorhexidine 2% Cloth) 3 pack TOPICAL DAILY@0400 PRN PRN Reason: Extra cloth needed Stop: 11/20/18 03:59 Heparin Sodium (Porcine) (Heparin Inj) 5,000 units SQ Q12H [facility] Sodium Chloride (Ns Inj) 1,000 mls @ 100 mls/hr IV.CONT .Q10H [facility] Last Admin: 11/14/18 12:23 Dose: 100 mls/hr Propofol (Diprivan 1000 Mg/100 Ml Inj) 1,000 mg in 100 mls @ 2.04 mls/hr IV.CONT TITRATE PRN; Protocol PRN Reason: Per Protocol Sodium Chloride (Ns Inj) 1,000 mls @ 84 mls/hr IV.CONT .[id number] [facility] Azithromycin 500 mg/ Sodium (Chloride) 250 mls @ 250 mls/hr IV.SIG Q24H NNAMDI Cefepime HCl 2,000 mg/ Sodium (Chloride) 100 mls @ 200 mls/hr IV.SIG Q8H NNAMDI Lactulose (Lactulose Liq) 30 ml PO DAILY PRN PRN Reason: SEVERE CONSITIPATION Morphine Sulfate (Morphine Inj) 2 mg IV.PUSH Q2H PRN PRN Reason: PAIN SCALE 6 TO 10 Ondansetron HCl (Zofran Inj) 4 mg IV.PUSH Q6H PRN PRN Reason: NAUSEA OR VOMITING Oseltamivir Phosphate (Tamiflu) 75 mg PO BID [facility] Stop: 11/19/18 20:59 Pantoprazole Sodium (Protonix Inj) 40 mg IV.PUSH DAILY [facility] Sennosides (Senokot) 17.2 mg PO Q12H PRN PRN Reason: Moderate Constipation Sodium Chloride (Ns Flush) 2 ml IV.FLUSH BID [facility] Sodium Chloride (Ns Flush) 2 ml IV.FLUSH PRN PRN PRN Reason: FLUSH AFTER USING IV ACCESS Allergies Allergy/AdvReac Type Severity Reaction Status Date / Time aspirin AdvReac Severe GI upset Verified 11/14/18 11:30 Home Medications Medication Instructions Recorded Confirmed Type albuterol sulfate 1 puff INHALATION Q4-6H PRN 11/14/18 11/14/18 History albuterol sulfate 1.25 mg INHALATION Q4H PRN 11/14/18 11/14/18 History Results - Labs CBC & Chem 7: 11/21/18 04:55 11/21/18 04:55 Labs: Short CBC 11/14/18 Range/Units 11:10 WBC 7.4 (4.0-11.0) th/mm3 Hgb 16.2 H (11.6-15.3) gm/dL Hct 49.2 H (35.0-46.0) % Plt Count 241 (150-450) th/mm3 BMP 11/14/18 11:10 Sodium 137 Potassium 3.4 L Chloride 95 L Carbon Dioxide 35.8 H BUN 5 L Creatinine 0.50 Calcium 8.6 Cardiac Enzymes 11/14/18 Range/Units 11:10 Troponin I Less than 0.02 L (0.02-0.05) ng/mL Liver Function 11/14/18 Range/Units 11:10 Total Bilirubin 0.7 (0.2-1.0) mg/dL AST 24 (15-37) U/L ALT 32 (10-53) U/L Alkaline Phosphatase 92 (45-117) U/L Albumin 2.9 L (3.4-5.0) g/dL Urine 11/14/18 Range/Units 12:55 Urine Color Straw (Yellw/Straw) Urine Clarity Clear (Clear) Urine pH 8.0 (5.0-8.5) Ur Specific [place] 1.015 (1.002-1.035) Urine Protein 100 H (Neg-Trace) mg/dL Urine Glucose (UA) Negative (Negative) mg/dL - Imaging Impressions Chest X-Ray 11/14/18 10:43 CONCLUSION: Diffuse mild interstitial prominence which appears largely chronic. Exam Vital signs: Vital Signs 11/14/18 10:43 11/14/18 11:00 11/14/18 11:18 Temperature 98.6 F Pulse Rate 94 H 82 84 Respiratory Rate 26 H 26 H Blood Pressure 171/103 H 163/94 H Pulse Oximetry 90 L 11/14/18 11:50 11/14/18 12:38 11/14/18 12:47 Temperature 98.9 F Pulse Rate 101 H 68 Respiratory Rate 32 H 18 Blood Pressure 160/80 H Pulse Oximetry 95 94 L 11/14/18 13:13 11/14/18 14:22 11/14/18 15:39 Temperature Pulse Rate 120 H 120 H Respiratory Rate 22 22 Blood Pressure 175/88 H 174/112 H Pulse Oximetry 94 L 97 11/14/18 17:03 Temperature Pulse Rate Respiratory Rate Blood Pressure Pulse Oximetry 98 Intake & Output 11/13/18 11/14/18 11/14/18 18:59 06:59 18:59 Intake Total 200 / 200 Balance 200 / 200 Weight 68 kg Intake: IV 200 / 200 Rocephin Inj 1,000 MG In NS Inj 200 / 200 100 ML @ 200 mls/hr IV.SIG ONCE ONE Rx#:[id number] - Constitutional mild distress, average body habitus, chronically ill appearing, disheveled, somnolent - Routine HEENT Exam Head: Present: normocephalic Eye: Present: EOMI, PERRL ENT: Present: mucous membranes moist, dentition normal, nares patent - Routine Neck Exam Present: supple, full ROM - Routine Respiratory Exam Present: accessory muscle use, respiratory distress, rhonchi (coarse rhonchi), wheezes (Expiratory wheezing ) - Routine Cardiovascular Exam Present: RRR, S1, S2, tachycardia - Routine Abdominal Exam Present: soft, normoactive bowel sounds (obese) - Routine Extremities Exam Present: full ROM, pulses intact, normal capillary refill - Routine Skin Exam Present: intact, warm - Routine Neurological Exam Present: oriented X3, moving all extremities, vision grossly intact, hearing grossly intact Caprini VTE Risk Assessment Caprini VTE Risk Assessment: Moderate/High Risk (score >= 2) Caprini Risk Assessment Model: Point Value = 1 Point Value = 2 Point Value = 3 Point Value = 5 Age 41-60 Minor surgery BMI > 25 kg/m2 Swollen legs Varicose veins or History of unexplained or recurrent spontaneous Oral contraceptives or hormone replacement Sepsis (< 1 month) Serious lung disease, including pneumonia (< 1 month) Abnormal pulmonary function Acute myocardial infarction Congestive heart failure (< 1 month) History of inflammatory bowel disease Medical patient at bed rest Age 61-74 Arthroscopic surgery Major open surgery (> 45 min) Laparoscopic surgery (> 45 min) Malignancy Confined to bed (> 72 hours) Immobilizing plaster cast Central venous access Age >= 75 History of VTE Family history of VTE Factor V Leiden Prothrombin [id number] Lupus anticoagulant Anticardiolipin antibodies Elevated serum homocysteine Heparin-induced thrombocytopenia Other congenital or acquired thrombophilia Stroke (< 1 month) Elective arthroplasty Hip, pelvis, or leg fracture Acute spinal cord injury (< 1 month) Prophylaxis Regimen: Total Risk Factor Score Risk Level Prophylaxis Regimen 0-1 Low Early ambulation 2 Moderate Order ONE of the following: *Sequential Compression Device (SCD) *Heparin 5000 units SQ BID 3-4 Higher Order ONE of the following medications: *Heparin 5000 units SQ TID *Enoxaparin/Lovenox 40 mg SQ daily (WT < 150 kg, CrCl > 30 mL/min) *Enoxaparin/Lovenox 30 mg SQ daily (WT < 150 kg, CrCl > 10-29 mL/min) *Enoxaparin/Lovenox 30 mg SQ BID (WT < 150 kg, CrCl > 30 mL/min) AND/OR *Sequential Compression Device (SCD) 5 or more Highest Order ONE of the following medications: *Heparin 5000 units SQ TID (Preferred with Epidurals) *Enoxaparin/Lovenox 40 mg SQ daily (WT < 150 kg, CrCl > 30 mL/min) *Enoxaparin/Lovenox 30 mg SQ daily (WT < 150 kg, CrCl > 10-29 mL/min) *Enoxaparin/Lovenox 30 mg SQ BID (WT < 150 kg, CrCl > 30 mL/min) AND *Sequential Compression Device (SCD) Assessment and Plan - Problem List (1) Acute hypoxemic respiratory failure Code(s): J96.01 - Acute respiratory failure with hypoxia Status: Acute Onset Date: ~11/14/18 (2) Asthma Code(s): J45.909 - Unspecified asthma, uncomplicated Status: Chronic (3) Influenza A Code(s): J10.1 - Influenza due to other identified influenza virus with other respiratory manifestations Status: Acute (4) Chronic narcotic dependence Code(s): F11.20 - Opioid dependence, uncomplicated Status: Chronic (5) Tobacco abuse disorder Code(s): Z72.0 - Tobacco use Status: Chronic - Assessment and Plan Plan: Assessment This is a 53-year-old female in moderate respiratory distress with noted hypercapnic and hypoxemic respiratory distress patient is at extreme risk for deterioration with the requirement of emergent intubation. We will admit to ICU. Plan by systems: Neurologic: Chronic opioid use Patient received Ativan , and morphine in ED Monitor for narcotic withdrawal symptoms Acetaminophen 650 mg every 6 hours as needed for pain or temperature greater than 101.0 Provide morphine 2 mg every 2 hours PRN Respiratory: Acute hypoxemic and hypercapnic respiratory failure Asthma Tobacco use disorder Bronchitis Maintain O2 sat greater than 92% Duo nebs every 4 hours scheduled every 2 hours as needed Initiation of BiPAP 12/5 FiO2 40% Counseled on cessation of smoking when clinically applicable Antibiotics see below Cardiovascular: Sinus tachycardia Telemetry sinus tachycardia, resolving hypertension Continue to monitor if required will provide hydralazine PRN Renal: No Segura required -- Strict I/Os FEN/GI: Hypokalemia Monitor electrolytes per ICU protocol Electrolyte repletion per protocol Maintain n.p.o. status for now patient somnolent and on BiPAP currently Heme/ID: Influenza A Droplet precautions Tamiflu 75 mg twice daily Obtain blood and urine cultures Patient received Rocephin in the ED Empiric antibiotics cefepime and azithromycin initiated Endocrine: Low-dose glucose monitoring per ICU protocol -- SSI Prophylaxis: GI Prophylaxis Protonix DVT Prophylaxis -- SCDs heparin Lines: Peripheral IVs providing adequate access at this time. Central line if indicated Dispo: Level 3 H&P Code Status: Full Discussed Condition With: WIRE COATER at bedside (2) Asthma Qualifiers: Asthma complication type: with acute exacerbation
[2018-11-14] MEDS ORDERED: Dextrose 50% in Water 50 ML Vial IV.PUSH PRN (17:30)
[2018-11-14] MEDS: Heparin - SQ 10,000 UNITS/ML Vial SQ SCH (17:34)
[2018-11-14] MEDS ORDERED: Sod Chloride 0.9% Inj 1,000 ML IV.SIG SCH (17:45)
[2018-11-14] MEDS: Morphine Sulfate Inj 2 MG/ML Vial IV.PUSH PRN ×3 (18:08→22:55)
[2018-11-14 18:41] LABS: ABG Base Excess 7.7 mmol/L (-2-2); ABG PCO2 53 mmHg (38-42); ABG PO2 67 mmHG (61-120)
--- NOTE | 2018-11-14 19:44 | ECG ---
Date Performed: 11/14/2018 Time Performed: 10:57:08 PTAGE: 53 years EKG: Sinus rhythm Since the previous tracing, no significant change noted NORMAL ECG PREVIOUS TRACING : 04/04/2017 20.56 DOCTOR: Haven Mcfarlane Interpretating Date/Time 11/14/2018 19:41:49
[2018-11-14] MEDS: Oseltamivir Phosphate 75 MG Capsule PO SCH (21:03)
[2018-11-14] MEDS: Insulin NovoLOG Aspart Correctional Sugar Inj SQ SCH (21:03)
[2018-11-14] MEDS: hydrALAZINE HCl Inj 20 MG/ML Vial IV.PUSH PRN (22:37)
[2018-11-15] MEDS: Labetalol HCl Inj 100 MG/20 ML Vial IV.PUSH PRN ×2 (00:12→02:20)
[2018-11-15] MEDS: hydrALAZINE HCl Inj 20 MG/ML Vial IV.PUSH PRN ×5 (01:04→11:19)
[2018-11-15] MEDS: Sod Chloride 0.9% Inj 1,000 ML IV.CONT SCH ×3 (01:30→19:29)
--- NOTE | 2018-11-15 03:43 | XR ---
EXAM DATE: 11/15/2018 3:37 AM EST AGE/SEX: 53 years / Female INDICATIONS: Respiratory failure. CLINICAL DATA: This is the patient's subsequent encounter. Patient reports that signs and symptoms h ave been present for 2 days and indicates a pain score of Nonresponsive. MEDICAL/SURGICAL HISTORY: . Acute hypoxemic respiratory failure. Asthma. Influenza A. Smoker. B ronchitis. Opioid dependance. section. COMPARISON: [facility], CHEST 1V SINGLE AP, 11/14/2018. . FINDINGS: Slight parenchymal consolidation seen at the bases. No pleural effusion or pneumothorax. Heart size s table, within normal limits. Nonrebreather mask present. CONCLUSION: Minimal bibasilar consolidation. Electronically signed by: Danish Valerio MD Board Certified Radiologist 11/15/2018 3:41 AM EST
[2018-11-15] MEDS ORDERED: Chlorhexidine Gluconate 2% 1 Pack (2 Cloths) TOPICAL PRN (04:00)
[2018-11-15] MEDS: Morphine Sulfate Inj 2 MG/ML Vial IV.PUSH PRN ×4 (04:07→12:53)
[2018-11-15] MEDS: Heparin - SQ 10,000 UNITS/ML Vial SQ SCH ×2 (04:07→16:24)
[2018-11-15] MEDS: Chlorhexidine Gluconate 2% 1 Pack (2 Cloths) TOPICAL SCH (04:07)
[2018-11-15 04:39] LABS: Baso % (Auto) 0.2 % (0.0-2.0); Hematocrit 47.3 % (35.0-46.0); Hemoglobin 15.6 gm/dL (11.6-15.3); Lymph # (Auto) 0.8 th/mm3 (1.0-4.8); Mean Corpuscular HGB Conc 32.9 % (32.0-36.0); Mean Corpuscular Hemoglobin 32.8 pg (27.0-34.0); Mean Corpuscular Volume 99.6 fL (80.0-100.0); Mean Platelet Volume 7.3 fL (7.0-11.0); Mono % (Auto) 10.8 % (0.0-8.0); Neut # (Auto) 7.4 th/mm3 (1.8-7.7); Platelet Count 217 th/mm3 (150-450); Red Blood Count 4.74 mil/mm3 (4.00-5.30); Red Cell Distribution Width 15.1 % (11.6-17.2); White Blood Count 9.3 th/mm3 (4.0-11.0)
[2018-11-15 04:48] LABS: Alanine Aminotransferase 28 U/L (10-53); Albumin 2.6 g/dL (3.4-5.0); Anion Gap 8 meq/L (5-15); Aspartate Aminotransferase 25 U/L (15-37); Calcium 8.1 mg/dL (8.5-10.1); Carbon Dioxide 27.2 meq/L (21.0-32.0); Chloride 107 meq/L (98-107); Glomerular Filtration Rate Greater Than 89 mL/min (>89); Glucose,Random 93 mg/dL (74-106); Magnesium 2.2 mg/dL (1.5-2.5); Phosphorus 3.2 mg/dL (2.5-4.9); Potassium 4.1 meq/L (3.5-5.1); Sodium 142 meq/L (136-145)
[2018-11-15 04:54] LABS: Alkaline Phosphatase 92 U/L (45-117); Blood Urea Nitrogen 9 mg/dL (7-18); Total Protein 7.2 g/dL (6.4-8.2)
[2018-11-15] MEDS ORDERED: MethylPREDNISolone Sod Succinate Inj 125 MG/2 ML Vial IV.PUSH ONE (07:37)
--- NOTE | 2018-11-15 07:51 | P.PNCC ---
Subjective Subjective Remarks/Hospital Course: This is a 53-year-old female that presented to [facility] emergency department. Per report the patient had worsening dyspnea over the last 3 days, such that she reported to the emergency department. The patient received Ativan and morphine in the emergency room. Imaging and laboratory studies were reviewed the patient was noted to be positive for influenza a antigen Tamiflu was initiated per the patient also was noted to report chronic ingestion of opioids by inhalation/smoking. The patient's medical history is significant for asthma, chronic opioid use via inhalation. Initiation of BiPAP was refused by the patient .The patient is at extreme risk for respiratory failure the patient was emergently transferred to [facility] and admitted to the ICU. Critical care medicine was consulted for management. per upon my evaluation of the patient patient was noted to be on a nonrebreather mask O2 sat 92%. I discussed with patient the criticality of her illness and requirement necessary to utilize BiPAP as she was at risk for possible emergent intubation. The patient agreed to utilize BiPAP. Currently the patient is satting at 95-97% on BiPAP 12/5 with FiO2 of 40%. The patient is very lethargic not cooperative in obtaining history and physical information obtained from medical records and staff. Subjective: 11/15 Sleepy but does arouse and follow commands. She is tachypneic on BiPAP 12 /5 with respiratory rate 20-26. FiO2 is 40% with sats in the mid 90s. She has bilateral wheezing. Objective Vital Signs / I&O: Vital Signs 11/14/18 10:43 11/14/18 11:00 11/14/18 11:18 Temperature 98.6 F Pulse Rate 94 H 82 84 Respiratory Rate 26 H 26 H Blood Pressure 171/103 H 163/94 H Pulse Oximetry 90 L 11/14/18 11:50 11/14/18 12:38 11/14/18 12:47 Temperature 98.9 F Pulse Rate 101 H 68 Respiratory Rate 32 H 18 Blood Pressure 160/80 H Pulse Oximetry 95 94 L 11/14/18 13:13 11/14/18 14:22 11/14/18 15:39 Temperature Pulse Rate 120 H 120 H Respiratory Rate 22 22 Blood Pressure 175/88 H 174/112 H Pulse Oximetry 94 L 97 11/14/18 16:45 11/14/18 17:00 11/14/18 17:03 Temperature 98.4 F Pulse Rate 117 H 117 H Respiratory Rate 42 H 42 H Blood Pressure 169/104 H 169/104 H Pulse Oximetry 100 100 98 11/14/18 17:12 11/14/18 18:00 11/14/18 18:48 Temperature Pulse Rate 98 H 119 H Respiratory Rate 28 H 20 Blood Pressure 168/115 H Pulse Oximetry 93 L 92 L 11/14/18 19:00 11/14/18 20:00 11/14/18 20:02 Temperature 98.3 F Pulse Rate 108 H 112 H Respiratory Rate Blood Pressure 186/104 H 198/139 H Pulse Oximetry 95 98 97 11/14/18 20:07 11/14/18 20:23 11/14/18 20:30 Temperature Pulse Rate 121 H 102 H 99 H Respiratory Rate 28 H Blood Pressure 188/99 H 173/93 H Pulse Oximetry 96 96 11/14/18 21:00 11/14/18 21:04 11/14/18 21:30 Temperature Pulse Rate 111 H 107 H 89 Respiratory Rate Blood Pressure 186/95 H 142/89 H Pulse Oximetry 87 L 96 98 11/14/18 22:00 11/14/18 22:31 11/14/18 23:00 Temperature Pulse Rate 96 H 89 112 H Respiratory Rate Blood Pressure 151/100 H 180/102 H Pulse Oximetry 94 L 96 98 11/14/18 23:01 11/14/18 23:06 11/14/18 23:30 Temperature Pulse Rate 119 H 73 78 Respiratory Rate 22 32 H Blood Pressure 173/114 H 140/80 Pulse Oximetry 90 L 100 11/14/18 23:52 11/15/18 00:00 11/15/18 00:04 Temperature 98.3 F Pulse Rate 104 H 103 H Respiratory Rate 50 H 42 H Blood Pressure 195/110 H 192/110 H Pulse Oximetry 100 95 97 11/15/18 00:08 11/15/18 00:30 11/15/18 01:00 Temperature Pulse Rate 103 H 88 101 H Respiratory Rate 55 H 33 H 47 H Blood Pressure 189/117 H 177/113 H 190/134 H Pulse Oximetry 98 95 95 11/15/18 02:00 11/15/18 02:15 11/15/18 03:00 Temperature Pulse Rate 90 87 75 Respiratory Rate 26 H 23 32 H Blood Pressure 180/107 H 178/105 H Pulse Oximetry 91 L 93 L 95 11/15/18 03:24 11/15/18 04:00 11/15/18 04:01 Temperature 97.5 F L Pulse Rate 76 59 L 90 Respiratory Rate 19 38 H Blood Pressure 201/91 H Pulse Oximetry 96 95 11/15/18 04:17 11/15/18 05:00 11/15/18 06:00 Temperature Pulse Rate 93 H 91 H Respiratory Rate 35 H 29 H Blood Pressure 192/115 H 156/93 H Pulse Oximetry 95 94 L 93 L Intake & Output 11/14/18 11/15/18 11/15/18 18:59 06:59 18:59 Intake Total 550 / 550 2440 / 2440 Output Total 300 / 300 0 / 0 Balance 250 / 250 2440 / 2440 Weight 68 kg 71 kg Intake: IV 550 / 550 2400 / 2400 NS Inj 1,000 ML @ 84 mls/hr IV. 1300 / 1300 CONT .[id number] COLLIN Rx#: [id number] Azithromycin Inj 500 MG In NS 250 / 250 Inj 250 ML @ 250 mls/hr IV.SIG Q24H COLLIN Rx#:[id number] Maxipime Inj 2,000 MG In NS Inj 100 / 100 100 / 100 100 ML @ 200 mls/hr IV.SIG Q8H COLLIN Rx#:[id number] NS Inj 1,000 ML @ 1000 mls/hr 1000 / 1000 IV.SIG BOLUS COLLIN Rx#:[id number] Rocephin Inj 1,000 MG In NS Inj 200 / 200 100 ML @ 200 mls/hr IV.SIG ONCE ONE Rx#:[id number] Oral 40 / 40 Output: Urine 300 / 300 0 / 0 Other: # Voids 1 # Incontinent Voids 1 # Bowel Movements 0 Weight On Admission 71 kg Result Diagrams: 11/15/18 04:05 11/15/18 04:05 Objective Remarks: GENERAL: Well-nourished, well-developed patient who is sitting up in [facility] bed. On BiPAP. SKIN: Warm and dry, well-perfused. HEAD: Atraumatic. Normocephalic. EYES: Pupils equal and round. No scleral icterus. No injection or drainage. ENT: BiPAP mask in place. NECK: Trachea midline. No JVD appreciated. CARDIOVASCULAR: Regular rate and rhythm, sinus rhythm on the monitor with rate in the 60s.. No murmurs rubs or gallops. RESPIRATORY: Tachypneic, bilateral expiratory wheezes. No rales. Breath sounds equal bilaterally. GASTROINTESTINAL: Abdomen soft, non-tender, nondistended. Bowel sounds present. MUSCULOSKELETAL: Extremities without clubbing, cyanosis, or edema. No obvious deformities. NEUROLOGICAL: Sleepy but arouses to voice. Moves all extremities to command. No obvious cranial nerve deficits. Speaks a few words Assessment and Plan - Problem List (1) Acute hypoxemic respiratory failure Code(s): J96.01 - Acute respiratory failure with hypoxia Status: Acute Onset Date: ~11/14/18 (2) Asthma Code(s): J45.909 - Unspecified asthma, uncomplicated Status: Chronic (3) Influenza A Code(s): J10.1 - Influenza due to other identified influenza virus with other respiratory manifestations Status: Acute (4) Chronic narcotic dependence Code(s): F11.20 - Opioid dependence, uncomplicated Status: Chronic (5) Tobacco abuse disorder Code(s): Z72.0 - Tobacco use Status: Chronic (6) Respiratory failure Code(s): J96.90 - Respiratory failure, unspecified, unspecified whether with hypoxia or hypercapnia Status: Acute - Assessment and Plan Plan: Assessment This is a 53-year-old female with hypercapnic and hypoxemic respiratory failure , tachypneic on BiPAP. She is at risk for deterioration requiring intubation. Plan by systems: Neurologic: Chronic opioid use Patient received Ativan , and morphine in ED Monitor for narcotic withdrawal symptoms Clonidine patch as per below Acetaminophen 650 mg every 6 hours as needed for pain or temperature greater than 101.0 Provide morphine 2 mg every 2 hours PRN Respiratory: Acute hypoxemic and hypercapnic respiratory failure Asthma with acute exacerbation Influenza A Tobacco use disorder Maintain O2 sat greater than 92% Duo nebs every 4 hours scheduled. Albuterol every 2 hours as needed Solu-Medrol 125 mg IV Continue BiPAP 12/5 FiO2 40% Counseled on cessation of smoking when clinically appropriate Antibiotics see below Cardiovascular: Sinus tachycardia (resolved) Monitor heart rate and blood pressure. Clonidine 0.1 mg patch daily Hydralazine/labetalol. FEN/Renal: No Segura required Monitor intake and output. KVO IV fluids. Lasix 20 mg IV now FEN/GI: Hypokalemia (resolved) Monitor electrolytes and replace per ICU protocol Maintain n.p.o. status for now as patient somnolent and on BiPAP currently Heme/ID: Influenza A Droplet precautions Tamiflu 75 mg twice daily Blood culture, urine Legionella and pneumococcal antigens, chlamydia pneumonia antibodies are pending. Patient received Rocephin in the ED On empiric antibiotics with cefepime and azithromycin which will continue for now pending above culture data. Endocrine: Glucose is at target Prophylaxis: GI Prophylaxis Protonix DVT Prophylaxis -- SCDs heparin ACCESS: Peripheral IVs providing adequate access at this time. Patient remains tachypneic on BiPAP. She still remains critically ill at risk for requiring intubation. I am giving her Solu-Medrol 125 mg IV and Lasix. I will reassess clinically after that and may repeat an ABG. Patient was followed up in afternooon. She is more tachypneic with resp rate in the 30s and in need of intubation. I spoke with her , Yandel, who is agreeable with proceeding with intubation. Intubated. Initiated tube feeds. CCT 60 minutes exclusive of separately billable procedures. Patient reassessed on several occasions. Respiratory status was progressively worsening and she ultimately required urgent intubation . (2) Asthma Qualifiers: Asthma complication type: with acute exacerbation (6) Respiratory failure Qualifiers: Chronicity: acute Respiratory failure complication: unspecified whether with hypoxia or hypercapnia Qualified Code(s): J96.00 - Acute respiratory failure, unspecified whether with hypoxia or hypercapnia
[2018-11-15] MEDS: Pantoprazole Inj 40 MG Vial IV.PUSH SCH (08:13)
[2018-11-15] MEDS: Insulin NovoLOG Aspart Correctional Sugar Inj SQ SCH ×4 (08:32→22:17)
[2018-11-15] MEDS: Oseltamivir Phosphate 75 MG Capsule PO SCH ×2 (12:50→20:23)
[2018-11-15] MEDS ORDERED: Etomidate Inj 20 MG/10 ML Ampul IV.PUSH ONE (13:31)
[2018-11-15 13:36] LABS: ABG Base Excess 7.1 mmol/L (-2-2); ABG PCO2 53 mmHg (38-42); ABG PO2 81 mmHG (61-120)
[2018-11-15] MEDS ORDERED: Etomidate Inj 40 MG/20 ML Vial IV.PUSH ONE (13:37)
[2018-11-15] MEDS ORDERED: Propofol Inj 500 MG/50 ML Vial ONE (13:38)
[2018-11-15] MEDS ORDERED: fentaNYL Citrate Inj 100 MCG/2 ML Ampul IV.PUSH ONE (13:45)
--- NOTE | 2018-11-15 14:27 | P.PCN ---
Date of procedure: 11/15/18 Procedure: PROCEDURE NOTE PROCEDURE: Endotracheal intubation INDICATION: Acute respiratory failure DETAILS OF PROCEDURE: The patient was placed in optimal position and preoxygenated with 100% FiO2 via [id number]. Oximeter oxygen saturation of 98% was obtained prior to direct laryngoscopy. The patient was administered Etomidate 20 mg IV for sedation and rocuronium 50 mg IV. Direct laryngoscopy was performed with a 3.0 Garcia laryngoscope blade and a grade III Cormack-Lehane view was obtained, transitioned immediately to 2 Petersen with grade II view and on single attempt a size 8.0 endotracheal tube was visualized passing through the cords. Correct placement was confirmed with colorimetric CO2 detector. Breath sounds were equal bilaterally. No sounds auscultated over the stomach. The endotracheal tube was secured with a commercial tube chavez at a depth of 23cm at the lips. The patient was connected to the ventilator. The patient tolerated the procedure well without any apparent complication. Oxygen saturations were maintained greater than 96% at all times. Stat chest x-ray was ordered.
--- NOTE | 2018-11-15 14:42 | XR ---
EXAM DATE: 11/15/2018 2:39 PM EST AGE/SEX: 53 years / Female INDICATIONS: Evaluate for respiratory failure. CLINICAL DATA: This is the patient's subsequent encounter. Patient reports that signs and symptoms h ave been present for 2 days and indicates a pain score of Nonresponsive. MEDICAL/SURGICAL HISTORY: . Acute hypoxemic respiratory failure. Asthma. Influenza A. Smoker. B ronchitis. Opioid dependance. . section. COMPARISON: C, CHEST 1V SINGLE AP, 11/15/2018. . FINDINGS: Status post placement of an endotracheal tube. The endotracheal tube appears to be in good position o verlying the tracheal air shadow. The tip is just above the level of the thoracic aortic arch. No alex dence of pneumothorax. The lungs are well aerated bilaterally. No focal pulmonary infiltrates. The he art size is within normal limits. There are no pleural effusions. The bony structures are grossly int act. There are some old right-sided rib fractures. CONCLUSION: 1. ET tube in good position. No evidence of pneumothorax. 2. The lungs are well aerated and grossly clear bilaterally. Electronically signed by: Juventino Angeles MD Board Certified Radiologist 11/15/2018 2:41 PM EST
[2018-11-15 15:31] LABS: ABG Base Excess 6.1 mmol/L (-2-2); ABG PCO2 50 mmHg (38-42); ABG PO2 97 mmHG (61-120)
--- NOTE | 2018-11-15 16:04 | P.DIET ---
Nutritional Evaluation Type of nutrition evaluation: initial Nutrition consult regarding: Tube Feeding Screening comments: 11/15 TF review Objective - Diagnosis respiratory failure, COPD, influenza - Objective Body Mass Index: 27.7 % IBW: 136 (IBW = 115lb) Body Weight Used for Calculations: Actual (71kg) Energy Needs - Lower Range (kCal/kg): 25 Energy Needs - Upper Range (kCal/kg): 30 Lower Limit kCal/kg (kCals): 1,775 Upper Limit kCal/kg (kCals): 2,130 Lower Limit Protein Factor (Grams per Kg): 1.1 Upper Limit Protein Factor (Grams per Kg): 1.3 Lower Protein Needs (Protein): 78 Upper Protein Needs (Protein): 92 Dietitian Reviewed in Medical Record: Curent medications, Intake & Output, Labs , Medical history, Tube feeding Diet Order: NPO, TF'ing Objective Comments: PMH: bronchitis Assessment Assessment: Pt was intubated today 11/15 d/t acute respiratory failure. Pt receiving Jevity 1.5 @ 45mL/hr for TF'ing. RD to recommend increasing TF to Jevity 1.5 @ 55mL/hr to provide 1980kcal, 84g of protein, and 1003mL of free liquid to best meet pts assessed needs. Continue to monitor TF tolerance. Labs reviewed, dietitian following. Recommendations: 1. RD to recommend increasing TF to Jevity 1.5 @ 55mL/hr to best meet pts assessed needs 2. Continue to monitor TF tolerance 3. Dietitian following Dietitian to Monitor: Lab values, Intake & Output, Tube feeding tolerance, Weight change, Medical course
[2018-11-15] MEDS: Azithromycin Inj 500 MG in Sodium Chlor 0.9% Inj 250 ML IV.SIG SCH (16:23)
[2018-11-15] MEDS: Propofol 1000 mg/100 ml Inj 1,000 MG/100 ML BOTTLE IV.CONT PRN ×2 (17:00→23:14)
[2018-11-15] MEDS: Oral Hygiene Kit OROPHARYNG SCH (19:26)
[2018-11-15] MEDS: fentaNYL 10 mcg/mL Premix Drip 2,500 MCG/250 ML BAG IV.SIG PRN (19:30)
[2018-11-15] MEDS: Chlorhexidine 0.12% Oral Kit 15 ML UDC OROPHARYNG SCH (22:17)
[2018-11-16] MEDS: Oral Hygiene Kit OROPHARYNG SCH ×5 (00:46→23:25)
[2018-11-16 06:13] LABS: Hematocrit 48.6 % (35.0-46.0); Mean Corpuscular HGB Conc 32.8 % (32.0-36.0); Mean Corpuscular Hemoglobin 32.5 pg (27.0-34.0); Mean Platelet Volume 7.9 fL (7.0-11.0); Platelet Count 239 th/mm3 (150-450); Red Blood Count 4.91 mil/mm3 (4.00-5.30); Red Cell Distribution Width 15.4 % (11.6-17.2)
[2018-11-16 06:14] LABS: White Blood Count 11.9 th/mm3 (4.0-11.0)
[2018-11-16 06:21] LABS: Calcium 8.6 mg/dL (8.5-10.1); Carbon Dioxide 30.5 meq/L (21.0-32.0); Potassium 3.7 meq/L (3.5-5.1)
[2018-11-16] MEDS: Heparin - SQ 10,000 UNITS/ML Vial SQ SCH ×2 (07:24→18:08)
[2018-11-16] MEDS: Chlorhexidine Gluconate 2% 1 Pack (2 Cloths) TOPICAL SCH (07:25)
[2018-11-16] MEDS: Sod Chloride 0.9% Inj 1,000 ML IV.CONT SCH ×3 (07:26→14:40)
[2018-11-16] MEDS: Propofol 1000 mg/100 ml Inj 1,000 MG/100 ML BOTTLE IV.CONT PRN ×4 (07:44→23:23)
[2018-11-16] MEDS: Insulin NovoLOG Aspart Correctional Sugar Inj SQ SCH ×4 (07:50→21:45)
[2018-11-16] MEDS: Chlorhexidine 0.12% Oral Kit 15 ML UDC OROPHARYNG SCH ×2 (07:50→20:09)
[2018-11-16] MEDS: Oseltamivir Phosphate 75 MG Capsule PO SCH ×2 (09:01→20:08)
[2018-11-16] MEDS: Pantoprazole Inj 40 MG Vial IV.PUSH SCH (09:01)
[2018-11-16] MEDS: fentaNYL 10 mcg/mL Premix Drip 2,500 MCG/250 ML BAG IV.SIG PRN (09:57)
--- NOTE | 2018-11-16 11:42 | P.PNCC ---
Subjective Subjective Remarks/Hospital Course: This is a 53-year-old female that presented to [facility] emergency department. Per report the patient had worsening dyspnea over the last 3 days, such that she reported to the emergency department. The patient received Ativan and morphine in the emergency room. Imaging and laboratory studies were reviewed the patient was noted to be positive for influenza a antigen Tamiflu was initiated per the patient also was noted to report chronic ingestion of opioids by inhalation/smoking. The patient's medical history is significant for asthma, chronic opioid use via inhalation. Initiation of BiPAP was refused by the patient .The patient is at extreme risk for respiratory failure the patient was emergently transferred to [facility] and admitted to the ICU. Critical care medicine was consulted for management. per upon my evaluation of the patient patient was noted to be on a nonrebreather mask O2 sat 92%. I discussed with patient the criticality of her illness and requirement necessary to utilize BiPAP as she was at risk for possible emergent intubation. The patient agreed to utilize BiPAP. Currently the patient is satting at 95-97% on BiPAP 12/5 with FiO2 of 40%. The patient is very lethargic not cooperative in obtaining history and physical information obtained from medical records and staff. 11/15 Sleepy but does arouse and follow commands. She is tachypneic on BiPAP 12 /5 with respiratory rate 20-26. FiO2 is 40% with sats in the mid 90s. She has bilateral wheezing. Subjective: 11/16 Intubated yesterday afternoon. Oliguric today, BUN up to 30 (only one dose of steroids). Will bolus fluids and assess response. Still wheezing significantly, schedule solumedrol. Objective Vital Signs / I&O: Vital Signs 11/15/18 12:00 11/15/18 14:00 11/15/18 14:10 Temperature 98.7 F Pulse Rate 111 H 103 H Respiratory Rate 35 H 26 H Blood Pressure 170/98 H Pulse Oximetry 100 11/15/18 14:45 11/15/18 15:00 11/15/18 15:15 Temperature Pulse Rate 107 H 106 H 113 H Respiratory Rate 26 H 26 H 26 H Blood Pressure 105/64 114/74 160/110 H Pulse Oximetry 93 L 96 97 11/15/18 15:24 11/15/18 15:30 11/15/18 15:44 Temperature Pulse Rate 106 H 111 H 108 H Respiratory Rate 26 H 35 H 26 H Blood Pressure 136/104 H 103/56 L Pulse Oximetry 97 98 11/15/18 15:45 11/15/18 16:00 11/15/18 16:15 Temperature 98.9 F Pulse Rate 109 H 110 H 107 H Respiratory Rate 26 H 26 H 27 H Blood Pressure 97/56 L 83/49 L 87/54 L Pulse Oximetry 99 100 98 11/15/18 16:30 11/15/18 16:45 11/15/18 17:00 Temperature Pulse Rate 109 H 103 H 100 H Respiratory Rate 26 H 26 H 26 H Blood Pressure 91/54 L 89/53 L 86/52 L Pulse Oximetry 98 97 97 11/15/18 17:15 11/15/18 17:30 11/15/18 17:45 Temperature Pulse Rate 98 H 97 H 95 H Respiratory Rate 26 H 26 H 26 H Blood Pressure 87/55 L 87/54 L 91/58 L Pulse Oximetry 96 96 97 11/15/18 18:00 11/15/18 18:15 11/15/18 18:30 Temperature Pulse Rate 93 H 92 H 93 H Respiratory Rate 26 H 26 H 26 H Blood Pressure 96/62 L 95/63 L 89/58 L Pulse Oximetry 98 99 100 11/15/18 18:45 11/15/18 19:00 11/15/18 19:15 Temperature Pulse Rate 92 H 91 H 90 Respiratory Rate 26 H 26 H 26 H Blood Pressure 89/57 L 90/55 L 92/58 L Pulse Oximetry 100 100 100 11/15/18 19:30 11/15/18 19:39 11/15/18 19:45 Temperature Pulse Rate 91 H 90 89 Respiratory Rate 26 H 26 H 26 H Blood Pressure 88/54 L 89/54 L 91/55 L Pulse Oximetry 100 100 100 11/15/18 20:00 11/15/18 20:15 11/15/18 20:23 Temperature 98.6 F Pulse Rate 92 H 89 Respiratory Rate 26 H 26 H 26 H Blood Pressure 91/55 L 92/56 L Pulse Oximetry 100 100 99 11/15/18 20:29 11/15/18 21:00 11/15/18 21:15 Temperature Pulse Rate 85 94 H 94 H Respiratory Rate 26 H 26 H 26 H Blood Pressure 99/60 L 102/62 Pulse Oximetry 98 97 11/15/18 21:30 11/15/18 21:45 11/15/18 22:00 Temperature Pulse Rate 93 H 92 H 92 H Respiratory Rate 26 H 26 H 26 H Blood Pressure 106/63 106/65 106/66 Pulse Oximetry 98 99 99 11/15/18 22:15 11/15/18 22:30 11/15/18 22:45 Temperature Pulse Rate 88 105 H 92 H Respiratory Rate 26 H 23 26 H Blood Pressure 110/67 120/79 113/65 Pulse Oximetry 99 100 100 11/15/18 23:00 11/15/18 23:15 11/15/18 23:30 Temperature Pulse Rate 90 94 H 86 Respiratory Rate 23 26 H 26 H Blood Pressure 116/72 115/68 109/70 Pulse Oximetry 100 100 100 11/15/18 23:45 11/16/18 00:00 11/16/18 00:15 Temperature 97.7 F Pulse Rate 83 81 81 Respiratory Rate 26 H 26 H 26 H Blood Pressure 108/69 107/71 107/70 Pulse Oximetry 100 100 100 11/16/18 00:24 11/16/18 00:30 11/16/18 00:45 Temperature Pulse Rate 81 83 84 Respiratory Rate 26 H 26 H 26 H Blood Pressure 111/71 115/74 Pulse Oximetry 100 100 100 11/16/18 01:00 11/16/18 01:15 11/16/18 01:30 Temperature Pulse Rate 86 89 102 H Respiratory Rate 26 H 26 H 27 H Blood Pressure 116/75 110/71 125/75 Pulse Oximetry 100 100 100 11/16/18 01:45 11/16/18 02:00 11/16/18 02:15 Temperature Pulse Rate 102 H 102 H 101 H Respiratory Rate 21 24 24 Blood Pressure 107/70 118/65 122/69 Pulse Oximetry 100 100 100 11/16/18 02:30 11/16/18 02:45 11/16/18 03:00 Temperature Pulse Rate 103 H 100 H 99 H Respiratory Rate 22 27 H 26 H Blood Pressure 120/67 120/68 121/72 Pulse Oximetry 91 L 100 100 11/16/18 03:15 11/16/18 03:30 11/16/18 03:45 Temperature Pulse Rate 100 H 102 H 100 H Respiratory Rate 26 H 26 H 26 H Blood Pressure 118/68 116/68 116/71 Pulse Oximetry 100 100 100 11/16/18 04:00 11/16/18 04:15 11/16/18 04:27 Temperature 98.2 F Pulse Rate 94 H 96 H 94 H Respiratory Rate 26 H 26 H 26 H Blood Pressure 117/71 117/71 Pulse Oximetry 100 100 100 11/16/18 04:30 11/16/18 04:45 11/16/18 05:00 Temperature Pulse Rate 94 H 101 H 104 H Respiratory Rate 26 H 26 H 26 H Blood Pressure 114/75 106/64 99/59 L Pulse Oximetry 100 95 95 11/16/18 05:15 11/16/18 05:30 11/16/18 05:45 Temperature Pulse Rate 105 H 106 H 104 H Respiratory Rate 26 H 26 H 26 H Blood Pressure 97/60 L 106/62 117/66 Pulse Oximetry 95 95 95 11/16/18 06:00 11/16/18 06:15 11/16/18 06:30 Temperature Pulse Rate 105 H 110 H 111 H Respiratory Rate 20 20 22 Blood Pressure 102/56 L 109/65 118/60 Pulse Oximetry 96 98 100 11/16/18 06:45 11/16/18 07:00 11/16/18 07:15 Temperature Pulse Rate 112 H 109 H 116 H Respiratory Rate 20 22 21 Blood Pressure 121/58 L 120/70 125/69 Pulse Oximetry 99 100 98 11/16/18 07:30 11/16/18 07:45 11/16/18 08:00 Temperature Pulse Rate 115 H 109 H 108 H Respiratory Rate 22 27 H 26 H Blood Pressure 137/78 124/68 Pulse Oximetry 98 99 97 11/16/18 08:01 11/16/18 08:30 11/16/18 08:35 Temperature 98.5 F Pulse Rate 109 H 101 H Respiratory Rate 26 H 22 26 H Blood Pressure 98/59 L 101/68 Pulse Oximetry 95 97 99 11/16/18 08:39 11/16/18 09:00 11/16/18 09:30 Temperature Pulse Rate 101 H 103 H 104 H Respiratory Rate 26 H 26 H 26 H Blood Pressure 104/59 L 114/66 Pulse Oximetry 97 98 11/16/18 10:00 11/16/18 10:30 11/16/18 11:00 Temperature Pulse Rate 101 H 98 H 95 H Respiratory Rate 23 26 H 26 H Blood Pressure 117/64 111/55 L 109/64 Pulse Oximetry 98 97 11/16/18 11:15 Temperature Pulse Rate 101 H Respiratory Rate Blood Pressure Pulse Oximetry Intake & Output 11/15/18 11/16/18 11/16/18 18:59 06:59 18:59 Intake Total 150 / 150 650 / 650 450 / 450 Output Total 1100 / 1100 325 / 325 Balance -950 / -950 325 / 325 450 / 450 Intake: IV 100 / 100 550 / 550 450 / 450 Diprivan 1000 mg/100 ml Inj 1, 100 / 100 100 / 100 000 mg In 100 ml @ 5 MCG/KG/MIN 2.13 mls/hr IV.CONT TITRATE PRN Rx#:[id number] Azithromycin Inj 500 MG In NS 250 / 250 Inj 250 ML @ 250 mls/hr IV.SIG Q24H COLLIN Rx#:[id number] Maxipime Inj 2,000 MG In NS Inj 100 / 100 200 / 200 100 / 100 100 ML @ 200 mls/hr IV.SIG Q8H COLLIN Rx#:[id number] fentaNYL 10 mcg/mL Premix Drip 250 / 250 2,500 mcg In 250 ml @ 50 MCG/HR 5 mls/hr IV.SIG TITRATE PRN Rx #:[id number] Oral 50 / 50 Water Bolus Amount 100 / 100 Output: Urine 0 / 0 Urine Amount (Catheter) 1100 / 1100 325 / 325 Indwelling Urethral Catheter 1100 / 1100 325 / 325 Other: # Voids 2 # Incontinent Voids 2 # Bowel Movements 0 Result Diagrams: 11/17/18 04:47 11/16/18 04:43 Objective Remarks: GENERAL: Well-nourished, well-developed patient who is tracheally intubated. On mechanical ventilation.. SKIN: Warm and dry, well-perfused. HEAD: Atraumatic. Normocephalic. EYES: Pupils equal and round. No scleral icterus. No injection or drainage. ENT: dry mucous membranes. NECK: Trachea midline. No JVD appreciated. CARDIOVASCULAR: Regular rate and rhythm, sinus rhythm on the monitor with rate in the 105. No murmurs rubs or gallops. RESPIRATORY: Bilateral wheeze and rhonchi. Synchronous with ventilator. GASTROINTESTINAL: Abdomen soft, non-tender, nondistended. Bowel sounds present. MUSCULOSKELETAL: Extremities without clubbing, cyanosis, or edema. No obvious deformities. NEUROLOGICAL: Arouses to voice. Moves all extremities to command. No obvious cranial nerve deficits. Assessment and Plan - Problem List (1) Acute hypoxemic respiratory failure Code(s): J96.01 - Acute respiratory failure with hypoxia Status: Acute Onset Date: ~11/14/18 (2) Asthma Code(s): J45.909 - Unspecified asthma, uncomplicated Status: Chronic (3) Influenza A Code(s): J10.1 - Influenza due to other identified influenza virus with other respiratory manifestations Status: Acute (4) Chronic narcotic dependence Code(s): F11.20 - Opioid dependence, uncomplicated Status: Chronic (5) Tobacco abuse disorder Code(s): Z72.0 - Tobacco use Status: Chronic (6) Respiratory failure Code(s): J96.90 - Respiratory failure, unspecified, unspecified whether with hypoxia or hypercapnia Status: Acute - Assessment and Plan Plan: Assessment This is a 53-year-old female with hypercapnic and hypoxemic respiratory failure , tachypneic on BiPAP. She is at risk for deterioration requiring intubation. Plan by systems: Neurologic: Chronic opioid use Propofol/ fentanyl drip for sedation. Will need precedex for extubation. Acetaminophen 650 mg every 6 hours as needed for pain or temperature greater than 101.0 Provide morphine 2 mg every 2 hours PRN Respiratory: Acute hypoxemic and hypercapnic respiratory failure Asthma with acute exacerbation Influenza A Tobacco use disorder PRVC. Daily SBT. Duo nebs every 4 hours scheduled. Albuterol every 2 hours as needed Solu-Medrol 125 mg IV on 11/15. Give Solumedrol 40 mg IV q6 hours. Counseled on cessation of smoking when appropriate Antibiotics see below Cardiovascular: Sinus tachycardia (resolved) Monitor heart rate and blood pressure. d/c Clonidine 0.1 mg patch daily Hydralazine/labetalol. Check Echo FEN/Renal: Oliguria Looks pre-renal. Bolus 1 L NS. On 0.9 NaCl at 100 mill liters per hour. Segura in place. Monitor intake and output. FEN/GI: Hypokalemia (resolved) Monitor electrolytes and replace per ICU protocol OGT in place. Jevity 1.5 --> increase to 55 mL/h per nutrition recommendation Heme/ID: Influenza A Droplet precautions Tamiflu 75 mg twice daily Blood culture, urine Legionella and pneumococcal antigens, chlamydia pneumonia antibodies are pending. Patient received Rocephin in the ED On empiric antibiotics with cefepime and azithromycin which will continue for now pending above culture data. Send sputum culture stat. (ordered previously but was not collected) Endocrine: Glucose is at target Prophylaxis: GI Prophylaxis Protonix DVT Prophylaxis -- SCDs heparin ACCESS: Peripheral IVs providing adequate access at this time. Level 3 followup. (2) Asthma Qualifiers: Asthma complication type: with acute exacerbation (6) Respiratory failure Qualifiers: Chronicity: acute Respiratory failure complication: unspecified whether with hypoxia or hypercapnia Qualified Code(s): J96.00 - Acute respiratory failure, unspecified whether with hypoxia or hypercapnia
[2018-11-16] MEDS ORDERED: Sod Chloride 0.9% Inj 1,000 ML IV.SIG SCH (12:15)
[2018-11-16] MEDS: MethylPREDNISolone Sod Succinate Inj 40 MG/ML Vial IV.PUSH SCH ×2 (14:41→21:04)
[2018-11-16] MEDS: Azithromycin Inj 500 MG in Sodium Chlor 0.9% Inj 250 ML IV.SIG SCH (18:12)
[2018-11-17] MEDS: Heparin - SQ 10,000 UNITS/ML Vial SQ SCH ×2 (04:15→15:40)
[2018-11-17] MEDS: Chlorhexidine Gluconate 2% 1 Pack (2 Cloths) TOPICAL SCH (04:16)
[2018-11-17] MEDS: Oral Hygiene Kit OROPHARYNG SCH ×3 (04:16→17:23)
[2018-11-17] MEDS: fentaNYL 10 mcg/mL Premix Drip 2,500 MCG/250 ML BAG IV.SIG PRN ×2 (04:26→15:39)
[2018-11-17] MEDS: Sod Chloride 0.9% Inj 1,000 ML IV.CONT SCH ×3 (05:31→15:40)
[2018-11-17] MEDS: Propofol 1000 mg/100 ml Inj 1,000 MG/100 ML BOTTLE IV.CONT PRN ×3 (05:32→15:39)
[2018-11-17] MEDS: MethylPREDNISolone Sod Succinate Inj 40 MG/ML Vial IV.PUSH SCH ×3 (05:32→22:10)
[2018-11-17 06:05] LABS: Hematocrit 43.1 % (35.0-46.0); Hemoglobin 14.1 gm/dL (11.6-15.3); Mean Corpuscular HGB Conc 32.6 % (32.0-36.0); Mean Corpuscular Hemoglobin 32.7 pg (27.0-34.0); Mean Corpuscular Volume 100.3 fL (80.0-100.0); Mean Platelet Volume 7.7 fL (7.0-11.0); Platelet Count 176 th/mm3 (150-450); Red Cell Distribution Width 15.8 % (11.6-17.2); White Blood Count 6.1 th/mm3 (4.0-11.0)
[2018-11-17 06:31] LABS: Calcium 7.9 mg/dL (8.5-10.1); Carbon Dioxide 28.2 meq/L (21.0-32.0); Potassium 3.9 meq/L (3.5-5.1)
[2018-11-17] MEDS: Chlorhexidine 0.12% Oral Kit 15 ML UDC OROPHARYNG SCH ×2 (08:01→20:16)
[2018-11-17] MEDS: Insulin NovoLOG Aspart Correctional Sugar Inj SQ SCH ×4 (08:07→20:16)
[2018-11-17] MEDS: Pantoprazole Inj 40 MG Vial IV.PUSH SCH (08:46)
[2018-11-17] MEDS: Oseltamivir Phosphate 75 MG Capsule PO SCH ×2 (08:47→20:02)
--- NOTE | 2018-11-17 14:28 | P.PNCC ---
Subjective Subjective Remarks/Hospital Course: This is a 53-year-old female that presented to [facility] emergency department. Per report the patient had worsening dyspnea over the last 3 days, such that she reported to the emergency department. The patient received Ativan and morphine in the emergency room. Imaging and laboratory studies were reviewed the patient was noted to be positive for influenza a antigen Tamiflu was initiated per the patient also was noted to report chronic ingestion of opioids by inhalation/smoking. The patient's medical history is significant for asthma, chronic opioid use via inhalation. Initiation of BiPAP was refused by the patient .The patient is at extreme risk for respiratory failure the patient was emergently transferred to [facility] and admitted to the ICU. Critical care medicine was consulted for management. per upon my evaluation of the patient patient was noted to be on a nonrebreather mask O2 sat 92%. I discussed with patient the criticality of her illness and requirement necessary to utilize BiPAP as she was at risk for possible emergent intubation. The patient agreed to utilize BiPAP. Currently the patient is satting at 95-97% on BiPAP 12/5 with FiO2 of 40%. The patient is very lethargic not cooperative in obtaining history and physical information obtained from medical records and staff. 11/15 Sleepy but does arouse and follow commands. She is tachypneic on BiPAP 12 /5 with respiratory rate 20-26. FiO2 is 40% with sats in the mid 90s. She has bilateral wheezing. 11/16 Intubated yesterday afternoon. Oliguric today, BUN up to 30 (only one dose of steroids). Will bolus fluids and assess response. Still wheezing significantly, schedule solumedrol. A lot of secretions with suctioning. Subjective: 11/17 Tolerating CPAP 5/5, RSBI <20. Afebrile. Secretions minimal. Plan to extubate. Objective Vital Signs / I&O: Vital Signs 11/16/18 14:30 11/16/18 15:00 11/16/18 15:30 Temperature Pulse Rate 79 81 86 Respiratory Rate 26 H 27 H 26 H Blood Pressure 101/60 112/71 109/66 Pulse Oximetry 100 100 100 11/16/18 16:00 11/16/18 16:26 11/16/18 16:28 Temperature Pulse Rate 75 66 Respiratory Rate 26 H 26 H 26 H Blood Pressure 111/62 Pulse Oximetry 100 96 11/16/18 16:30 11/16/18 17:00 11/16/18 17:30 Temperature Pulse Rate 66 83 70 Respiratory Rate 26 H 24 26 H Blood Pressure 116/71 125/84 122/65 Pulse Oximetry 97 98 98 11/16/18 18:00 11/16/18 18:30 11/16/18 19:00 Temperature 98.7 F Pulse Rate 74 74 74 Respiratory Rate 20 19 26 H Blood Pressure 122/67 116/65 107/61 Pulse Oximetry 99 100 96 11/16/18 19:30 11/16/18 20:00 11/16/18 20:02 Temperature 98.2 F Pulse Rate 73 77 83 Respiratory Rate 26 H 26 H 25 H Blood Pressure 104/63 104/66 Pulse Oximetry 95 98 98 11/16/18 20:30 11/16/18 20:37 11/16/18 20:43 Temperature Pulse Rate 69 69 Respiratory Rate 26 H 26 H Blood Pressure 107/66 Pulse Oximetry 97 100 98 11/16/18 21:00 11/16/18 21:30 11/16/18 22:00 Temperature Pulse Rate 62 59 L 62 Respiratory Rate 26 H 26 H 26 H Blood Pressure 98/58 L 96/61 L 99/63 L Pulse Oximetry 96 98 95 11/16/18 22:30 11/16/18 23:00 11/16/18 23:30 Temperature Pulse Rate 70 56 L 71 Respiratory Rate 26 H 26 H 27 H Blood Pressure 104/68 108/69 113/78 Pulse Oximetry 96 95 96 11/17/18 00:00 11/17/18 00:19 11/17/18 00:23 Temperature 97 F L Pulse Rate 73 69 Respiratory Rate 25 H 27 H Blood Pressure 111/67 Pulse Oximetry 96 95 95 11/17/18 00:30 11/17/18 01:00 11/17/18 01:30 Temperature Pulse Rate 72 80 61 Respiratory Rate 22 18 26 H Blood Pressure 108/62 123/88 127/81 Pulse Oximetry 96 96 97 11/17/18 02:00 11/17/18 02:30 11/17/18 03:00 Temperature Pulse Rate 58 L 57 L 57 L Respiratory Rate 26 H 26 H 23 Blood Pressure 124/79 120/77 121/76 Pulse Oximetry 95 93 L 93 L 11/17/18 03:30 11/17/18 03:58 11/17/18 04:00 Temperature 98 F Pulse Rate 72 64 63 Respiratory Rate 24 26 H 26 H Blood Pressure 122/74 119/76 Pulse Oximetry 99 96 95 11/17/18 04:30 11/17/18 05:00 11/17/18 05:30 Temperature Pulse Rate 73 73 65 Respiratory Rate 21 24 23 Blood Pressure 123/78 123/73 126/78 Pulse Oximetry 99 95 94 L 11/17/18 06:00 11/17/18 06:31 11/17/18 07:00 Temperature Pulse Rate 77 77 59 L Respiratory Rate 17 23 27 H Blood Pressure 133/83 150/102 H 137/84 Pulse Oximetry 97 100 95 11/17/18 07:30 11/17/18 08:00 11/17/18 08:29 Temperature 98.9 F Pulse Rate 54 L 54 L Respiratory Rate 26 H 26 H 0 L Blood Pressure 128/81 128/76 Pulse Oximetry 92 L 96 11/17/18 08:30 11/17/18 08:35 11/17/18 09:00 Temperature Pulse Rate 71 75 85 Respiratory Rate 11 L 26 H 33 H Blood Pressure 138/92 H 122/82 Pulse Oximetry 95 93 L 11/17/18 09:30 11/17/18 10:00 11/17/18 10:30 Temperature Pulse Rate 65 61 70 Respiratory Rate 26 H 27 H 26 H Blood Pressure 145/84 H 146/91 H 131/84 Pulse Oximetry 93 L 100 95 11/17/18 11:00 11/17/18 11:31 11/17/18 12:00 Temperature 98.8 F Pulse Rate 60 94 H 62 Respiratory Rate 26 H 20 11 L Blood Pressure 136/86 139/101 H 145/86 H Pulse Oximetry 100 95 100 11/17/18 12:07 11/17/18 12:09 11/17/18 12:30 Temperature Pulse Rate 65 100 H Respiratory Rate 7 L 7 L 24 Blood Pressure 168/107 H Pulse Oximetry 100 96 11/17/18 13:00 Temperature Pulse Rate 75 Respiratory Rate 16 Blood Pressure 145/88 H Pulse Oximetry 96 Intake & Output 11/16/18 11/17/18 11/17/18 18:59 06:59 18:59 Intake Total 2214 / 2214 2400 / 2400 200 / 200 Output Total 350 / 350 500 / 500 Balance 1864 / 1864 1900 / 1900 200 / 200 Intake: IV 1750 / 1750 1550 / 1550 200 / 200 Diprivan 1000 mg/100 ml Inj 1, 300 / 300 200 / 200 100 / 100 000 mg In 100 ml @ 5 MCG/KG/MIN 2.13 mls/hr IV.CONT TITRATE PRN Rx#:[id number] NS Inj 1,000 ML @ 100 mls/hr IV 1000 / 1000 1000 / 1000 .CONT .Q10H COLLIN Rx#:[id number] Azithromycin Inj 500 MG In NS 250 / 250 Inj 250 ML @ 250 mls/hr IV.SIG Q24H COLLIN Rx#:[id number] Maxipime Inj 2,000 MG In NS Inj 200 / 200 100 / 100 100 / 100 100 ML @ 200 mls/hr IV.SIG Q8H COLLIN Rx#:[id number] fentaNYL 10 mcg/mL Premix Drip 250 / 250 2,500 mcg In 250 ml @ 50 MCG/HR 5 mls/hr IV.SIG TITRATE PRN Rx #:[id number] Tube Feeding 464 / 464 550 / 550 Tube Irrigant 300 / 300 Output: Urine Amount (Catheter) 350 / 350 500 / 500 Indwelling Urethral Catheter 350 / 350 500 / 500 Other: # Bowel Movements 0 Result Diagrams: 11/17/18 04:47 11/17/18 04:47 Objective Remarks: GENERAL: Well-nourished, well-developed patient who is orotracheally intubated. On CPAP. SKIN: Warm and dry, well-perfused. HEAD: Atraumatic. Normocephalic. EYES: Pupils equal and round, 2 mm reactive. No scleral icterus. No injection or drainage. ENT: MMM NECK: Trachea midline. No JVD appreciated. CARDIOVASCULAR: Regular rate and rhythm, sinus rhythm on the monitor with rate in the 105. No murmurs rubs or gallops. RESPIRATORY: Good air movement bilaterally, still some exp wheeze. . Tolerating CPAP 5/5 most of day, RSBI 20s, FVC 1.2 GASTROINTESTINAL: Abdomen soft, non-tender, nondistended. Bowel sounds present. MUSCULOSKELETAL: Extremities without clubbing, cyanosis, or edema. No obvious deformities. NEUROLOGICAL: Calm on precedex, writing notes on clipboard. Moves all extremities to command. No obvious cranial nerve deficits. Assessment and Plan - Problem List (1) Acute hypoxemic respiratory failure Code(s): J96.01 - Acute respiratory failure with hypoxia Status: Acute Onset Date: ~11/14/18 (2) Asthma Code(s): J45.909 - Unspecified asthma, uncomplicated Status: Chronic (3) Influenza A Code(s): J10.1 - Influenza due to other identified influenza virus with other respiratory manifestations Status: Acute (4) Chronic narcotic dependence Code(s): F11.20 - Opioid dependence, uncomplicated Status: Chronic (5) Tobacco abuse disorder Code(s): Z72.0 - Tobacco use Status: Chronic (6) Respiratory failure Code(s): J96.90 - Respiratory failure, unspecified, unspecified whether with hypoxia or hypercapnia Status: Acute - Assessment and Plan Plan: Assessment This is a 53-year-old female with hypercapnic and hypoxemic respiratory failure , tachypneic on BiPAP. She is at risk for deterioration requiring intubation. Plan by systems: Neurologic: Chronic opioid use Propofol/ fentanyl drip for sedation. Precedex around time of extubation. Acetaminophen 650 mg every 6 hours as needed for pain or temperature greater than 101.0 Provide morphine 2 mg every 2 hours PRN Respiratory: Acute hypoxemic and hypercapnic respiratory failure Asthma with acute exacerbation Influenza A Tobacco use disorder [facility]. Daily SBT. Duo nebs every 4 hours scheduled. Albuterol every 2 hours as needed Solu-Medrol 125 mg IV on 11/15. Give Solumedrol 60 mg IV q8 hours. Counseled on cessation of smoking when appropriate Antibiotics see below Cardiovascular: Sinus tachycardia (resolved) Monitor heart rate and blood pressure. d/c Clonidine 0.1 mg patch daily Hydralazine/labetalol. Check Echo FEN/Renal: Oliguria Looks pre-renal. Bolus 1 L NS. On 0.9 NaCl at 100 mill liters per hour. Segura in place. Monitor intake and output. FEN/GI: Hypokalemia (resolved) Monitor electrolytes and replace per ICU protocol OGT in place. Jevity 1.5 --> increase to 55 mL/h per nutrition recommendation Heme/ID: Influenza A Droplet precautions Tamiflu 75 mg twice daily Blood culture, urine Legionella and pneumococcal antigens, chlamydia pneumonia antibodies are pending. Patient received Rocephin in the ED On empiric antibiotics with cefepime and azithromycin. Sputum culture and blood cx NGTD. No fever or leukocytosis. Stop cefepime. Endocrine: Glucose is at target Prophylaxis: GI Prophylaxis Protonix DVT Prophylaxis -- SCDs heparin ACCESS: Peripheral IVs providing adequate access at this time. Level 3 followup. (2) Asthma Qualifiers: Asthma complication type: with acute exacerbation (6) Respiratory failure Qualifiers: Chronicity: acute Respiratory failure complication: unspecified whether with hypoxia or hypercapnia Qualified Code(s): J96.00 - Acute respiratory failure, unspecified whether with hypoxia or hypercapnia
[2018-11-17] MEDS: Azithromycin Inj 500 MG in Sodium Chlor 0.9% Inj 250 ML IV.SIG SCH (15:41)
[2018-11-17] MEDS: Dexmedetomidine Inj 200 MCG in Sodium Chlor 0.9% Inj 48 ML IV.CONT PRN ×2 (17:02→20:51)
[2018-11-17] MEDS: Morphine Sulfate Inj 2 MG/ML Vial IV.PUSH PRN (20:03)
[2018-11-17] MEDS: hydrALAZINE HCl Inj 20 MG/ML Vial IV.PUSH PRN (22:10)
[2018-11-17] MEDS: Labetalol HCl Inj 100 MG/20 ML Vial IV.PUSH PRN (23:55)
[2018-11-18] MEDS: Oral Hygiene Kit OROPHARYNG SCH ×4 (00:20→16:38)
[2018-11-18] MEDS: Morphine Sulfate Inj 2 MG/ML Vial IV.PUSH PRN ×4 (01:05→11:18)
[2018-11-18] MEDS: hydrALAZINE HCl Inj 20 MG/ML Vial IV.PUSH PRN ×2 (02:05→23:42)
[2018-11-18] MEDS: Chlorhexidine Gluconate 2% 1 Pack (2 Cloths) TOPICAL SCH (03:22)
[2018-11-18] MEDS: Heparin - SQ 10,000 UNITS/ML Vial SQ SCH ×2 (03:22→16:38)
[2018-11-18] MEDS: Dexmedetomidine Inj 200 MCG in Sodium Chlor 0.9% Inj 48 ML IV.CONT PRN ×2 (04:00→08:13)
[2018-11-18] MEDS: MethylPREDNISolone Sod Succinate Inj 40 MG/ML Vial IV.PUSH SCH ×3 (05:23→21:12)
[2018-11-18] MEDS: Oseltamivir Phosphate 75 MG Capsule PO SCH ×2 (08:11→20:14)
[2018-11-18] MEDS: Pantoprazole Inj 40 MG Vial IV.PUSH SCH (08:12)
[2018-11-18] MEDS: Chlorhexidine 0.12% Oral Kit 15 ML UDC OROPHARYNG SCH ×2 (08:12→20:36)
--- NOTE | 2018-11-18 09:56 | P.PNCC ---
Subjective Subjective Remarks/Hospital Course: This is a 53-year-old female that presented to [facility] emergency department. Per report the patient had worsening dyspnea over the last 3 days, such that she reported to the emergency department. The patient received Ativan and morphine in the emergency room. Imaging and laboratory studies were reviewed the patient was noted to be positive for influenza a antigen Tamiflu was initiated per the patient also was noted to report chronic ingestion of opioids by inhalation/smoking. The patient's medical history is significant for asthma, chronic opioid use via inhalation. Initiation of BiPAP was refused by the patient .The patient is at extreme risk for respiratory failure the patient was emergently transferred to [facility] and admitted to the ICU. Critical care medicine was consulted for management. per upon my evaluation of the patient patient was noted to be on a nonrebreather mask O2 sat 92%. I discussed with patient the criticality of her illness and requirement necessary to utilize BiPAP as she was at risk for possible emergent intubation. The patient agreed to utilize BiPAP. Currently the patient is satting at 95-97% on BiPAP 12/5 with FiO2 of 40%. The patient is very lethargic not cooperative in obtaining history and physical information obtained from medical records and staff. 11/15 Sleepy but does arouse and follow commands. She is tachypneic on BiPAP 12 /5 with respiratory rate 20-26. FiO2 is 40% with sats in the mid 90s. She has bilateral wheezing. 11/16 Intubated yesterday afternoon. Oliguric today, BUN up to 30 (only one dose of steroids). Will bolus fluids and assess response. Still wheezing significantly, schedule solumedrol. A lot of secretions with suctioning. Subjective: 11/17 Tolerating CPAP 5/5, RSBI <20. Afebrile. Secretions minimal. Plan to extubate. 11/18: Extubated yesterday, tolerating well except for bilateral expiratory wheezing. Gets short of breath with conversation. Objective Vital Signs / I&O: Vital Signs 11/17/18 10:00 11/17/18 10:11/17/18 11:00 Temperature Pulse Rate 61 70 60 Respiratory Rate 27 H 26 H 26 H Blood Pressure 146/91 H 131/84 136/86 Pulse Oximetry 100 95 100 11/17/18 11:31 11/17/18 12:00 11/17/18 12:07 Temperature 98.8 F Pulse Rate 94 H 62 Respiratory Rate 20 11 L 7 L Blood Pressure 139/101 H 145/86 H Pulse Oximetry 95 100 100 11/17/18 12:09 11/17/18 12:30 11/17/18 13:00 Temperature Pulse Rate 65 100 H 75 Respiratory Rate 7 L 24 16 Blood Pressure 168/107 H 145/88 H Pulse Oximetry 96 96 11/17/18 13:30 11/17/18 14:00 11/17/18 14:30 Temperature Pulse Rate 78 70 61 Respiratory Rate 17 16 14 Blood Pressure 149/88 H 151/94 H 146/95 H Pulse Oximetry 96 98 97 11/17/18 15:00 11/17/18 15:30 11/17/18 16:00 Temperature 98.7 F Pulse Rate 64 75 91 H Respiratory Rate 12 18 18 Blood Pressure 156/96 H 146/85 H 143/93 H Pulse Oximetry 100 99 76 L 11/17/18 16:16 11/17/18 16:30 11/17/18 17:00 Temperature Pulse Rate 82 80 Respiratory Rate 15 18 16 Blood Pressure 141/100 H 156/102 H Pulse Oximetry 97 99 96 11/17/18 17:30 11/17/18 17:33 11/17/18 18:00 Temperature Pulse Rate 89 68 Respiratory Rate 23 17 Blood Pressure 167/94 H 164/99 H Pulse Oximetry 94 L 95 92 L 11/17/18 18:30 11/17/18 19:00 11/17/18 19:30 Temperature Pulse Rate 92 H 76 71 Respiratory Rate 29 H 28 H 23 Blood Pressure 176/115 H 165/104 H 171/106 H Pulse Oximetry 89 L 93 L 96 11/17/18 20:00 11/17/18 20:24 11/17/18 20:30 Temperature 98.2 F Pulse Rate 89 59 L 71 Respiratory Rate 29 H 16 18 Blood Pressure 165/108 H 171/105 H Pulse Oximetry 90 L 93 L 92 L 11/17/18 21:00 11/17/18 21:30 11/17/18 22:00 Temperature Pulse Rate 67 80 76 Respiratory Rate 21 21 23 Blood Pressure 161/99 H 175/106 H 190/106 H Pulse Oximetry 92 L 91 L 92 L 12/30/18 22:30 11/17/18 23:00 11/17/18 23:30 Temperature Pulse Rate 78 69 65 Respiratory Rate 19 21 21 Blood Pressure 153/92 H 157/96 H 170/102 H Pulse Oximetry 97 99 96 11/17/18 23:43 11/17/18 23:48 11/17/18 23:59 Temperature Pulse Rate 78 81 76 Respiratory Rate 24 18 20 Blood Pressure 173/111 H 177/108 H Pulse Oximetry 95 99 11/18/18 00:00 11/18/18 00:01 11/18/18 00:04 Temperature 98 F Pulse Rate 73 74 74 Respiratory Rate 23 22 24 Blood Pressure 199/149 H 187/109 H Pulse Oximetry 98 86 L 96 11/18/18 00:14 11/18/18 00:30 11/18/18 01:00 Temperature Pulse Rate 69 73 77 Respiratory Rate 19 15 24 Blood Pressure 174/92 H 167/102 H 177/93 H Pulse Oximetry 90 L 91 L 92 L 11/18/18 01:33 11/18/18 02:00 11/18/18 02:30 Temperature Pulse Rate 73 66 73 Respiratory Rate 19 21 22 Blood Pressure 174/98 H 182/105 H 143/88 H Pulse Oximetry 92 L 91 L 93 L 11/18/18 03:00 11/18/18 03:01 11/18/18 03:24 Temperature Pulse Rate 87 87 78 Respiratory Rate 20 23 18 Blood Pressure 163/101 H Pulse Oximetry 90 L 92 L 11/18/18 03:30 11/18/18 04:00 11/18/18 04:30 Temperature 98.2 F Pulse Rate 78 72 74 Respiratory Rate 20 21 20 Blood Pressure 156/95 H 146/80 H 161/88 H Pulse Oximetry 94 L 94 L 94 L 11/18/18 05:00 11/18/18 05:30 11/18/18 06:00 Temperature Pulse Rate 80 81 80 Respiratory Rate 19 25 H 21 Blood Pressure 150/88 H 161/84 H 161/86 H Pulse Oximetry 91 L 91 L 91 L 11/18/18 06:30 11/18/18 07:36 Temperature Pulse Rate 65 63 Respiratory Rate 22 18 Blood Pressure 163/96 H Pulse Oximetry 93 L 94 L Intake & Output 11/17/18 11/18/18 11/18/18 18:59 06:59 18:59 Intake Total 2731 / 2731 160 / 160 / 52 Output Total 400 / 400 2099 / 2099 Balance 2331 / 2331 -1940 / -1940 / 52 Intake: IV 2111 / 2111 100 / 100 52 / 52 Precedex Inj 200 MCG In NS Inj 100 / 100 52 / 52 48 ML @ 0.2 MCG/KG/HR 3.55 mls/ hr IV.CONT TITRATE PRN Rx#: [id number] Diprivan 1000 mg/100 ml Inj 1, 225 / 225 000 mg In 100 ml @ 5 MCG/KG/MIN 2.13 mls/hr IV.CONT TITRATE PRN Rx#:[id number] NS Inj 1,000 ML @ 100 mls/hr IV 1150 / 1150 .CONT .Q10H COLLIN Rx#:[id number] Azithromycin Inj 500 MG In NS 250 / 250 Inj 250 ML @ 250 mls/hr IV.SIG Q24H COLLIN Rx#:[id number] Maxipime Inj 2,000 MG In NS Inj 200 / 200 100 ML @ 200 mls/hr IV.SIG Q8H COLLIN Rx#:[id number] fentaNYL 10 mcg/mL Premix Drip 287 / 287 2,500 mcg In 250 ml @ 50 MCG/HR 5 mls/hr IV.SIG TITRATE PRN Rx #:[id number] Oral 60 / 60 Tube Feeding 499 / 499 Water Bolus Amount 120 / 120 Output: Urine Amount (Catheter) 400 / 400 2099 Indwelling Urethral Catheter 400 / 400 2099 Result Diagrams: 11/17/18 04:47 11/17/18 04:47 Objective Remarks: GENERAL: Well-nourished, well-developed patient who is on nasal cannula SKIN: Warm and dry, well-perfused. HEAD: Atraumatic. Normocephalic. EYES: Pupils equal and round, 2 mm reactive. No scleral icterus. No injection or drainage. ENT: MMM NECK: Trachea midline. No JVD appreciated. CARDIOVASCULAR: Regular rate and rhythm, sinus rhythm on the monitor. No murmurs rubs or gallops. RESPIRATORY: Good air movement bilaterally, with bilateral expiratory wheezing GASTROINTESTINAL: Abdomen soft, non-tender, nondistended. Bowel sounds present. MUSCULOSKELETAL: Extremities without clubbing, cyanosis, or edema. No obvious deformities. NEUROLOGICAL: Awake alert oriented. Moves all extremities to command. No obvious cranial nerve deficits. Assessment and Plan - Problem List (1) Acute hypoxemic respiratory failure Code(s): J96.01 - Acute respiratory failure with hypoxia Status: Acute Onset Date: ~11/14/18 (2) Asthma Code(s): J45.909 - Unspecified asthma, uncomplicated Status: Chronic (3) Influenza A Code(s): J10.1 - Influenza due to other identified influenza virus with other respiratory manifestations Status: Acute (4) Chronic narcotic dependence Code(s): F11.20 - Opioid dependence, uncomplicated Status: Chronic (5) Tobacco abuse disorder Code(s): Z72.0 - Tobacco use Status: Chronic (6) Respiratory failure Code(s): J96.90 - Respiratory failure, unspecified, unspecified whether with hypoxia or hypercapnia Status: Acute - Assessment and Plan Plan: Assessment This is a 53-year-old female with hypercapnic and hypoxemic respiratory failure , currently extubated and slowly improving Plan by systems: Neurologic: Chronic opioid use Acetaminophen 650 mg every 6 hours as needed for pain or temperature greater than 101.0 Provide morphine 2 mg every 2 hours PRN Respiratory: Acute hypoxemic and hypercapnic respiratory failure Asthma/COPD with acute exacerbation Influenza A Tobacco use disorder Extubated 11/17/2018 tolerating well Duo nebs every 4 hours scheduled. Albuterol every 2 hours as needed Solu-Medrol 125 mg IV on 11/15. Give Solumedrol 60 mg IV q8 hours. Counseled on cessation of smoking when appropriate Antibiotics see below Pulmonary consult Cardiovascular: Sinus tachycardia (resolved) Monitor heart rate and blood pressure. d/cd Clonidine 0.1 mg patch daily Hydralazine/labetalol. 2D Echo FEN/Renal: s/p Bolus 1 L NS. On 0.9 NaCl at 100 mill liters per hour. Urine output improved to 2.5 L, will DC IV fluids Segura in place. Discontinue Segura today Monitor intake and output. FEN/GI: Hypokalemia (resolved) Monitor electrolytes and replace per ICU protocol Heme/ID: Influenza A Droplet precautions Tamiflu 75 mg twice daily Blood culture, urine Legionella and pneumococcal antigens, chlamydia pneumonia antibodies are pending. Patient received Rocephin in the ED On empiric antibiotics with cefepime and azithromycin. Sputum culture and blood cx NGTD. No fever or leukocytosis. Off cefepime. Endocrine: Glucose is at target Prophylaxis: GI Prophylaxis Protonix DVT Prophylaxis -- SCDs heparin ACCESS: Peripheral IVs providing adequate access at this time. Level 3 followup. Consult hospitalist to assume care in a.m. (2) Asthma Qualifiers: Asthma complication type: with acute exacerbation (6) Respiratory failure Qualifiers: Chronicity: acute Respiratory failure complication: unspecified whether with hypoxia or hypercapnia Qualified Code(s): J96.00 - Acute respiratory failure, unspecified whether with hypoxia or hypercapnia
[2018-11-18] MEDS: Insulin NovoLOG Aspart Correctional Sugar Inj SQ SCH ×4 (11:17→20:14)
--- NOTE | 2018-11-18 11:56 | MB ---
cc: Tanisha Garduno MD DATE: 11/18/2018 REASON FOR CONSULTATION: COPD exacerbation. HISTORY OF PRESENT ILLNESS: The patient is a 53-year-old female with a past medical history of COPD, who initially presented to [place] ED with worsening shortness of breath associated with cough and wheezing. She was found to be positive for influenza A antigen and Tamiflu was initiated. She was emergently transferred to [facility] for severe respiratory distress requiring intubation and mechanical ventilation after she failed BiPAP. The patient was extubated yesterday and is currently on 4 L oxygen. A chest x-ray from 11/15 showed no obvious infiltrates or effusions. The patient is awake, alert. She states that her and daughter at home are sick and had coughing. She denies any prior history of pneumonia or any recent travel. She quit smoking a month ago and used to smoke half a pack a day and has been a smoker for 20 years. She denies any use of oxygen at home. Her ABG on BiPAP from 11/15 showed a pH of 7.40, CO2 of 53, pO2 of 81, bicarbonate 32, and saturation of 93%. PAST MEDICAL HISTORY: Significant for COPD. PAST SURGICAL HISTORY: x 3. SOCIAL HISTORY: Nondrinker. Quit smoking a month ago. Used to smoke a half a pack per day for 20 years. FAMILY HISTORY: Mother with breast cancer. Father at a young age as well, has history of diabetes. REVIEW OF SYSTEMS: As per HPI. The rest of the review of systems unremarkable. PHYSICAL EXAMINATION: GENERAL: A 53-year-old female lying in bed, in mild distress. VITAL SIGNS: Temperature 98.2, pulse of 75, respiratory rate of 26, blood pressure 163/96, saturation of 95%. HEENT: Atraumatic, normocephalic. Pupils are equal, round, reactive to light and accommodation. Extraocular muscles intact. Conjunctivae pink. Nonicteric sclerae. Oral mucosa within normal. NECK: Supple. No JVD, adenopathy, or thyromegaly. Trachea in the midline. CARDIOVASCULAR: Regular rate and rhythm. Normal S1, S2. No murmurs, rubs, or gallops noted. PULMONARY: Bilateral equal air entry with diffuse scattered wheezing. ABDOMEN: Soft, obese, nontender, nondistended, positive bowel sounds. EXTREMITIES: No cyanosis, clubbing, edema. NEUROLOGIC: No focal sensory deficit. DIAGNOSTIC DATA: WBC 6.1, hemoglobin 14, hematocrit 43, platelet count 176. Sodium 144, potassium 3.9, chloride 110, CO2 of 28, BUN 36, creatinine 0.72, glucose of 155. Chest x-ray on 11/15 showed no obvious infiltrates or effusions. Microbiology 11/14 nasal washings positive for flu A antigen. Sputum culture 11/16 showed normal respiratory zuly. Strep pneumonia legionella urinary antigen on 11/14 was negative. Chlamydia and pneumonia titers are pending. ASSESSMENT: 1. Acute hypoxemic and hypercapnic respiratory insufficiency. 2. Influenza pneumonia. 3. Chronic obstructive pulmonary disease. 4. Bronchospasm. 5. Tobacco abuse. RECOMMENDATIONS: 1. Wean down oxygen as tolerated and maintain sats above 92%. 2. Continued Bronchodilators in the form of DuoNeb q.4 plus q.2 p.r.n. for shortness of breath. In addition, she is on Pulmicort nebs 0.5 mg q.12. 3. Continue with steroids. She is currently on Solu-Medrol 60 mg IV q.8. 4. BiPAP p.r.n. for respiratory distress. 5. We will obtain a chest x-ray. 6. Continue with antibiotics. She is currently on azithromycin 500 mg IV daily. Off cefepime. Continue with Tamiflu 75 mg b.i.d. 7. We will need pulmonary function test when her respiratory status improves to assess the severity of her obstructive lung disease. 8. GI and DVT prophylaxis. She is on heparin 5000 units subcutaneous q.12 and Protonix 40 mg daily. 10. Further recommendations will be based on hospital course. Thank you for consultation and allowing us to participate in this patient's care. MD HECTOR Davis/stevie , 11:35 AM , 11:46 AM
--- NOTE | 2018-11-18 12:20 | XR ---
EXAM DATE: 11/18/2018 11:56 AM EST AGE/SEX: 53 years / Female INDICATIONS: Shortness of breath. CLINICAL DATA: This is the patient's subsequent encounter. Patient reports that signs and symptoms h ave been present for 4 - 6 days and indicates a pain score of 0/10. MEDICAL/SURGICAL HISTORY: . Acute hypoxemic respiratory failure. Asthma. Influenza A. Smoker. B ronchitis. . section. COMPARISON: C, CHEST 1V SINGLE AP, 11/15/2018. . FINDINGS: Basilar hypoaeration is noted following extubation. There is no evidence of consolidating airspace di sease. Changes of COPD are again noted. Heart and mediastinal structures are stable. CONCLUSION: Basilar hypoaeration status post extubation COPD No evidence of consolidating airspace disease. Electronically signed by: Scooby Rainey MD Board Certified Radiologist 11/18/2018 12:18 PM EST
[2018-11-18] MEDS: Morphine Inj 4 MG/ML Vial IV.PUSH PRN ×3 (16:38→23:38)
[2018-11-18] MEDS: Azithromycin Inj 500 MG in Sodium Chlor 0.9% Inj 250 ML IV.SIG SCH (16:39)
--- NOTE | 2018-11-18 17:27 | ECHRPT ---
Indication: SHORTNESS OF BREATH CONCLUSIONS Normal left ventricular size. Wall thickness is normal. The left ventricular systolic function is low normal with an estimated ejection fraction in the rang e of 50- 55%. Calcification of the non-coronary cusp. There is trace tricuspid valve regurgitation. The estimated pulmonary arterial pressure is 47 mmHg. The inferior vena cava (IVC) is normal in size. A left sided pleural effusion is present. BP: / HR: Rhythm: Sinus MEASUREMENTS (Male / Female) Normal Values Technical Quality:Poor 2D ECHO LV Diastolic Diameter PLAX 4.8 cm 4.2 - 5.9 / 3.9 - 5.3 cm LV Systolic Diameter PLAX 3.7 cm IVS Diastolic Thickness 0.8 cm 0.6 - 1.0 / 0.6 - 0.9 cm LVPW Diastolic Thickness 0.9 cm 0.6 - 1.0 / 0.6 - 0.9 cm LV Relative Wall Thickness 0.4 RV Internal Dim ED PLAX 2.9 cm LVOT Diameter 1.8 cm Aortic Root Diameter 3.3 cm DOPPLER AV Peak Velocity 145.0 cm/s AV Peak Gradient 8.4 mmHg LVOT Peak Velocity 100.0 cm/s LVOT Peak Gradient 4.0 mmHg AV Area Cont Eq pk 1.8 cm Mitral E Point Velocity 61.7 cm/s Mitral A Point Velocity 72.1 cm/s Mitral E to A Ratio 0.9 TR Peak Velocity 304.0 cm/s TR Peak Gradient 37.0 mmHg Right Atrial Pressure 10.0 mmHg Pulmonary Artery Systolic Pressu 47.0 mmHg Right Ventricular Systolic Press 47.0 mmHg FINDINGS LEFT VENTRICLE Normal left ventricular size. Wall thickness is normal. The left ventricular systolic function is low normal with an estimated ejection fraction in the rang e of 50- 55%. RIGHT VENTRICLE The right ventricle was not well visualized. LEFT ATRIUM The left atrium was not well visualized. RIGHT ATRIUM The right atrium is not well visualized. ATRIAL SEPTUM Normal atrial septal thickness. AORTA The aortic root and proximal ascending aorta are not well visualized. MITRAL VALVE The mitral valve is not well visualized. AORTIC VALVE The aortic valve is not well visualized. Calcification of the non-coronary cusp. TRICUSPID VALVE There is trace tricuspid valve regurgitation. The estimated pulmonary arterial pressure is 47 mmHg. PULMONARY VALVE The pulmonary valve is not well visualized. VESSELS The inferior vena cava (IVC) is normal in size. PERICARDIUM A left sided pleural effusion is present. Ruben Castro MD, FACC (Electronically Signed) Final Date:18 November 2018 17:26
[2018-11-18] MEDS: LORazepam 0.5 MG Tablet PO PRN (22:18)
[2018-11-19] MEDS: Oral Hygiene Kit OROPHARYNG SCH ×4 (00:20→17:43)
[2018-11-19] MEDS: Tiotropium Bromide 18 MCG/ACT Inhaler INH SCH ×2 (00:20→08:04)
[2018-11-19] MEDS: Labetalol HCl Inj 100 MG/20 ML Vial IV.PUSH PRN (01:26)
[2018-11-19] MEDS: hydrALAZINE HCl Inj 20 MG/ML Vial IV.PUSH PRN ×3 (02:07→08:09)
[2018-11-19] MEDS: Morphine Inj 4 MG/ML Vial IV.PUSH PRN ×4 (02:07→17:43)
[2018-11-19] MEDS: Heparin - SQ 10,000 UNITS/ML Vial SQ SCH ×2 (03:52→15:21)
[2018-11-19] MEDS: Chlorhexidine Gluconate 2% 1 Pack (2 Cloths) TOPICAL SCH (03:53)
[2018-11-19] MEDS: MethylPREDNISolone Sod Succinate Inj 40 MG/ML Vial IV.PUSH SCH ×3 (05:46→21:00)
--- NOTE | 2018-11-19 07:38 | P.PN ---
Subjective Interval history: Patient seen and examined this morning. Intermittent SOB noted at rest and with exertion. Complaining of back pain. Feels very anxious she states. BP significantly elevated this am. No overnight events per nurse. Physical Exam Vital signs: Vital Signs 11/18/18 07:36 11/18/18 08:00 11/18/18 10:00 Temperature 97.7 F Pulse Rate 63 90 92 H Respiratory Rate 18 29 H Blood Pressure 148/98 H Pulse Oximetry 94 L 93 L 11/18/18 10:01 11/18/18 10:30 11/18/18 11:00 Temperature Pulse Rate 96 H 92 H 93 H Respiratory Rate 26 H 22 27 H Blood Pressure 161/77 H 158/91 H Pulse Oximetry 93 L 93 L 92 L 11/18/18 11:01 11/18/18 11:02 11/18/18 11:20 Temperature Pulse Rate 78 75 Respiratory Rate 23 26 H 22 Blood Pressure 168/92 H Pulse Oximetry 95 11/18/18 11:31 11/18/18 12:00 11/18/18 12:30 Temperature 97.8 F Pulse Rate 98 H 91 H 87 Respiratory Rate 28 H 21 21 Blood Pressure 163/91 H 157/90 H 154/85 H Pulse Oximetry 92 L 95 98 11/18/18 13:00 11/18/18 13:30 11/18/18 14:00 Temperature Pulse Rate 112 H 115 H 103 H Respiratory Rate 34 H 25 H 24 Blood Pressure 164/92 H 158/76 H 143/76 H Pulse Oximetry 94 L 91 L 94 L 11/18/18 14:30 11/18/18 15:00 11/18/18 15:05 Temperature Pulse Rate 96 H 100 H 103 H Respiratory Rate 21 23 21 Blood Pressure 131/84 150/90 H Pulse Oximetry 91 L 90 L 11/18/18 15:30 11/18/18 16:00 11/18/18 16:30 Temperature 98.5 F Pulse Rate 98 H 91 H 94 H Respiratory Rate 27 H 22 24 Blood Pressure 154/86 H 156/89 H 153/97 H Pulse Oximetry 90 L 93 L 93 L 11/18/18 16:40 11/18/18 17:00 11/18/18 17:30 Temperature Pulse Rate 96 H 99 H Respiratory Rate 21 24 30 H Blood Pressure 169/94 H 176/96 H Pulse Oximetry 93 L 93 L 12/31/18 18:00 11/18/18 18:30 11/18/18 19:00 Temperature Pulse Rate 101 H 104 H 107 H Respiratory Rate 30 H 23 23 Blood Pressure 165/96 H 172/100 H 173/92 H Pulse Oximetry 93 L 91 L 94 L 11/18/18 19:30 11/18/18 19:48 11/18/18 20:00 Temperature 98.5 F Pulse Rate 103 H 100 H 98 H Respiratory Rate 26 H 20 23 Blood Pressure 184/98 H Pulse Oximetry 92 L 93 L 92 L 11/18/18 20:09 11/18/18 20:30 11/18/18 21:00 Temperature Pulse Rate 100 H 98 H 95 H Respiratory Rate 22 20 23 Blood Pressure 152/93 H 190/95 H 158/94 H Pulse Oximetry 91 L 91 L 93 L 11/18/18 21:30 11/18/18 22:00 11/18/18 22:30 Temperature Pulse Rate 95 H 95 H 95 H Respiratory Rate 24 24 22 Blood Pressure 167/94 H 169/93 H 179/106 H Pulse Oximetry 88 L 91 L 94 L 11/18/18 23:00 11/18/18 23:30 11/19/18 00:00 Temperature 98.8 F Pulse Rate 88 93 H 92 H Respiratory Rate 22 24 22 Blood Pressure 179/101 H 192/108 H 176/94 H Pulse Oximetry 91 L 90 L 92 L 11/19/18 00:06 11/19/18 00:30 11/19/18 01:00 Temperature Pulse Rate 98 H 107 H 102 H Respiratory Rate 18 25 H 25 H Blood Pressure 184/104 H 186/103 H Pulse Oximetry 91 L 92 L 11/19/18 01:20 11/19/18 01:23 11/19/18 01:30 Temperature Pulse Rate 107 H 101 H 84 Respiratory Rate 23 27 H 22 Blood Pressure 197/116 H 194/91 H 184/108 H Pulse Oximetry 89 L 96 91 L 11/19/18 02:00 11/19/18 02:13 11/19/18 02:30 Temperature Pulse Rate 86 83 91 H Respiratory Rate 21 23 21 Blood Pressure 191/121 H 180/112 H 200/113 H Pulse Oximetry 93 L 96 95 11/19/18 02:44 11/19/18 03:00 11/19/18 03:30 Temperature Pulse Rate 89 99 H 96 H Respiratory Rate 21 30 H 24 Blood Pressure 196/121 H 206/122 H 190/116 H Pulse Oximetry 93 L 92 L 92 L 11/19/18 03:51 11/19/18 04:00 11/19/18 04:30 Temperature 98.6 F Pulse Rate 93 H 88 88 Respiratory Rate 22 26 H 21 Blood Pressure 187/114 H 183/112 H Pulse Oximetry 91 L 91 L 11/19/18 06:00 Temperature Pulse Rate 99 H Respiratory Rate Blood Pressure Pulse Oximetry Intake & Output 11/18/18 11/19/18 11/19/18 18:59 06:59 18:59 Intake Total 1322 / 1322 250 / 250 Output Total 1500 / 1500 200 / 200 Balance -178 / -178 50 / 50 Intake: IV 322 / 322 Precedex Inj 200 MCG In NS Inj 72 / 72 48 ML @ 0.2 MCG/KG/HR 3.55 mls/ hr IV.CONT TITRATE PRN Rx#: [id number] Azithromycin Inj 500 MG In NS 250 / 250 Inj 250 ML @ 250 mls/hr IV.SIG Q24H COLLIN Rx#:[id number] Oral 1000 / 1000 250 / 250 Output: Urine 200 / 200 Urine Amount (Catheter) 1500 / 1500 Indwelling Urethral Catheter 1500 / 1500 Other: # Incontinent Voids 1 Narrative: GENERAL: Well-appearing, appears uncomfortable SKIN: Warm and dry, skin is flush HEAD: Normocephalic. EYES: No scleral icterus. No injection or drainage. NECK: Supple, trachea midline. No JVD or lymphadenopathy. CARDIOVASCULAR: Regular rate and rhythm without murmurs, gallops, or rubs. RESPIRATORY: No accessory muscle use, scant wheezing. GASTROINTESTINAL: Abdomen soft, non-tender, nondistended. MUSCULOSKELETAL: No cyanosis, or edema. - Urinary Catheter Management Indwelling Urethral Catheter Cath placed during this visit: yes, but has since been removed by the nurse Reason for continuing: Decision to DC catheter Insertion date: 11/15/18 Insertion time: 15:00 Removal date: 11/18/18 Removal time: 16:00 Results - Labs CBC & Chem 7: 11/17/18 04:47 11/17/18 04:47 Laboratory Results - last 24 hr 11/14/18 11/18/1818 18:45 08:28 11:22 POC Glucose 120 H 156 H M. pneumoniae Interp . Mycoplasma pneumon IgG Positive Mycoplasma pneumon IgM Negative 11/18/18 11/18/18 16:47 20:13 POC Glucose 111 H 116 H M. pneumoniae Interp Mycoplasma pneumon IgG Mycoplasma pneumon IgM Microbiology 11/16/18 12:30 Sputum - Endotracheal Gram Stain - Final 11/16/18 12:30 Sputum - Endotracheal Sputum Culture - Final Rare growth normal respiratory zuly 11/14/18 11:00 Blood - Peripheral Aerobic Blood Culture - Preliminary No growth in 4 days 11/14/18 11:00 Blood - Peripheral Anaerobic Blood Culture - Preliminary No growth in 4 days 11/14/18 11:10 Blood - Peripheral Aerobic Blood Culture - Preliminary No growth in 4 days 11/14/18 11:10 Blood - Peripheral Anaerobic Blood Culture - Preliminary No growth in 4 days - Imaging Impressions Chest X-Ray 11/18/18 11:37 CONCLUSION: Basilar hypoaeration status post extubation COPD No evidence of consolidating airspace disease. Assessment and Plan - Plan In summary this is a 53-year-old female patient who presented to [place] [facility] with shortness of breath. In the ER the patient was noted to be flu positive. She also confessed to chronic opioid use by inhalation/smoking. Her medical history significant for asthma and chronic opioid use. Patient initially refused BiPAP in the ER. Due to her extreme risk of respiratory failure she was transferred to [facility] and admitted to the ICU. Patient then agreed to utilization of BiPAP. She continued to be tachypneic and was intubated on November 16. She was extubated on November 18. Asthma/COPD exacerbation Acute respiratory failure status post extubation Influenza A + Chest x-ray shows basilar hypoaeration status post extubation -Sputum culture negative, urine negative for strep pneumo and Legionella -Blood cultures negative times 4 days -Pulmonology consult -Solu-Medrol 60 mg IV every 8, Pulmicort, Spiriva -Tamiflu 75 mg twice daily (11/14-11/19) -Azithromycin 500 mg daily Sinus tachycardia--> has resolved -2D echo: Ejection fraction 50-55%. Left-sided pleural effusion present. Decreased urine output--> improved after IV fluids Chronic opioid use Hypertension -Clonidine 0.2 mg every 8 -Hydralazine, labetalol as needed Anxiety - ativan is available DVT prophylaxis: heparin 5000 units twice daily GI prophylaxis: Protonix Discharge Planning: monitor in ICU today, if continues to improve, transfer to medical floor tomorrow
[2018-11-19] MEDS: Pantoprazole Inj 40 MG Vial IV.PUSH SCH (08:04)
[2018-11-19] MEDS: Oseltamivir Phosphate 75 MG Capsule PO SCH (08:07)
--- NOTE | 2018-11-19 09:16 | P.PNPL ---
Subjective Interval history: Patient is on 3L oxygen. Afebrile. Feeling better. Physical Exam Vital signs: Vital Signs 11/18/18 10:00 11/18/18 10:01 11/18/18 10:30 Temperature Pulse Rate 92 H 96 H 92 H Respiratory Rate 26 H 22 Blood Pressure 161/77 H 158/91 H Pulse Oximetry 93 L 93 L 11/18/18 11:00 11/18/18 11:01 11/18/18 11:02 Temperature Pulse Rate 93 H 78 75 Respiratory Rate 27 H 23 26 H Blood Pressure 168/92 H Pulse Oximetry 92 L 95 11/18/18 11:20 11/18/18 11:31 11/18/18 12:00 Temperature 97.8 F Pulse Rate 98 H 91 H Respiratory Rate 22 28 H 21 Blood Pressure 163/91 H 157/90 H Pulse Oximetry 92 L 95 11/18/18 12:30 11/18/18 13:00 11/18/18 13:30 Temperature Pulse Rate 87 112 H 115 H Respiratory Rate 21 34 H 25 H Blood Pressure 154/85 H 164/92 H 158/76 H Pulse Oximetry 98 94 L 91 L 11/18/18 14:00 11/18/18 14:30 11/18/18 15:00 Temperature Pulse Rate 103 H 96 H 100 H Respiratory Rate 24 21 23 Blood Pressure 143/76 H 131/84 150/90 H Pulse Oximetry 94 L 91 L 90 L 11/18/18 15:05 11/18/18 15:30 11/18/18 16:00 Temperature 98.5 F Pulse Rate 103 H 98 H 91 H Respiratory Rate 21 27 H 22 Blood Pressure 154/86 H 156/89 H Pulse Oximetry 90 L 93 L 11/18/18 16:30 11/18/18 16:40 11/18/18 17:00 Temperature Pulse Rate 94 H 96 H Respiratory Rate 24 21 24 Blood Pressure 153/97 H 169/94 H Pulse Oximetry 93 L 93 L 11/18/18 17:30 11/18/18 18:00 11/18/18 18:30 Temperature Pulse Rate 99 H 101 H 104 H Respiratory Rate 30 H 30 H 23 Blood Pressure 176/96 H 165/96 H 172/100 H Pulse Oximetry 93 L 93 L 91 L 11/18/18 19:00 11/18/18 19:30 11/18/18 19:48 Temperature Pulse Rate 107 H 103 H 100 H Respiratory Rate 23 26 H 20 Blood Pressure 173/92 H 184/98 H Pulse Oximetry 94 L 92 L 93 L 11/18/18 20:00 11/18/18 20:09 11/18/18 20:30 Temperature 98.5 F Pulse Rate 98 H 100 H 98 H Respiratory Rate 23 22 20 Blood Pressure 152/93 H 190/95 H Pulse Oximetry 92 L 91 L 91 L 11/18/18 21:00 11/18/18 21:30 11/18/18 22:00 Temperature Pulse Rate 95 H 95 H 95 H Respiratory Rate 23 24 24 Blood Pressure 158/94 H 167/94 H 169/93 H Pulse Oximetry 93 L 88 L 91 L 11/18/18 22:30 11/18/18 23:00 11/18/18 23:30 Temperature Pulse Rate 95 H 88 93 H Respiratory Rate 22 22 24 Blood Pressure 179/106 H 179/101 H 192/108 H Pulse Oximetry 94 L 91 L 90 L 11/19/18 00:00 11/19/18 00:06 11/19/18 00:30 Temperature 98.8 F Pulse Rate 92 H 98 H 107 H Respiratory Rate 22 18 25 H Blood Pressure 176/94 H 184/104 H Pulse Oximetry 92 L 91 L 11/19/18 01:00 11/19/18 01:20 11/19/18 01:23 Temperature Pulse Rate 102 H 107 H 101 H Respiratory Rate 25 H 23 27 H Blood Pressure 186/103 H 197/116 H 194/91 H Pulse Oximetry 92 L 89 L 96 11/19/18 01:30 11/19/18 02:00 11/19/18 02:13 Temperature Pulse Rate 84 86 83 Respiratory Rate 22 21 23 Blood Pressure 184/108 H 191/121 H 180/112 H Pulse Oximetry 91 L 93 L 96 11/19/18 02:30 11/19/18 02:44 11/19/18 03:00 Temperature Pulse Rate 91 H 89 99 H Respiratory Rate 21 21 30 H Blood Pressure 200/113 H 196/121 H 206/122 H Pulse Oximetry 95 93 L 92 L 11/19/18 03:30 11/19/18 03:51 11/19/18 04:00 Temperature 98.6 F Pulse Rate 96 H 93 H 88 Respiratory Rate 24 22 26 H Blood Pressure 190/116 H 187/114 H Pulse Oximetry 92 L 91 L 11/19/18 04:30 11/19/18 06:00 11/19/18 07:10 Temperature Pulse Rate 88 99 H Respiratory Rate 21 30 H Blood Pressure 183/112 H Pulse Oximetry 91 L 11/19/18 08:10 11/19/18 08:54 11/19/18 08:55 Temperature Pulse Rate 99 H Respiratory Rate 21 24 Blood Pressure Pulse Oximetry 92 L Intake & Output 11/18/18 11/19/18 11/19/18 18:59 06:59 18:59 Intake Total 1322 / 1322 250 / 250 Output Total 1500 / 1500 200 / 200 Balance -178 / -178 50 / 50 Intake: IV 322 / 322 Precedex Inj 200 MCG In NS Inj 72 / 72 48 ML @ 0.2 MCG/KG/HR 3.55 mls/ hr IV.CONT TITRATE PRN Rx#: [id number] Azithromycin Inj 500 MG In NS 250 / 250 Inj 250 ML @ 250 mls/hr IV.SIG Q24H COLLIN Rx#:[id number] Oral 1000 / 1000 250 / 250 Output: Urine 200 / 200 Urine Amount (Catheter) 1500 / 1500 Indwelling Urethral Catheter 1500 / 1500 Other: # Incontinent Voids 1 - Constitutional no acute distress - Routine HEENT Exam Head: Present: normocephalic, atraumatic Eye: Present: EOMI, PERRL, normal accommodation, conjunctivae pink ENT: Present: mucous membranes moist - Routine Neck Exam Present: supple, full ROM, trachea midline - Routine Respiratory Exam Present: wheezes - Routine Cardiovascular Exam Present: RRR, S1, S2 - Routine Abdominal Exam Present: soft, normoactive bowel sounds - Routine Extremities Exam Present: full ROM, pulses intact - Routine Skin Exam Present: intact - Routine Neurological Exam Present: alert, oriented X3, CN II-XII intact - Urinary Catheter Management Indwelling Urethral Catheter Cath placed during this visit: yes, but has since been removed by the nurse Reason for continuing: Decision to DC catheter Insertion date: 11/15/18 Insertion time: 15:00 Removal date: 11/18/18 Removal time: 16:00 Assessment and Plan - Assessment (1) Acute hypoxemic respiratory failure Code(s): J96.01 - Acute respiratory failure with hypoxia Status: Acute Onset Date: ~11/14/18 (2) Asthma Code(s): J45.909 - Unspecified asthma, uncomplicated Status: Chronic Qualifiers: Asthma complication type: with acute exacerbation (3) Influenza A Code(s): J10.1 - Influenza due to other identified influenza virus with other respiratory manifestations Status: Acute (4) Chronic narcotic dependence Code(s): F11.20 - Opioid dependence, uncomplicated Status: Chronic (5) Tobacco abuse disorder Code(s): Z72.0 - Tobacco use Status: Chronic (6) Respiratory failure Code(s): J96.90 - Respiratory failure, unspecified, unspecified whether with hypoxia or hypercapnia Status: Acute Qualifiers: Chronicity: acute Respiratory failure complication: unspecified whether with hypoxia or hypercapnia Qualified Code(s): J96.00 - Acute respiratory failure, unspecified whether with hypoxia or hypercapnia - Plan 1. Acute hypoxemic and hypercapnic respiratory insufficiency. 2. Influenza pneumonia. 3. Chronic obstructive pulmonary disease. 4. Bronchospasm. 5. Tobacco abuse. Plan Continue with oxygen and maintain sats >92%. Bronchodilators(DuoNeb ,Pulmicort nebs 0.5 mg q.12, Spiriva). Continue Solu-Medrol 60 mg IV q.8. BiPAP p.r.n. for respiratory distress. CXR 11/18: Basilar hypoaeration, no evidence of consolidating airspace disease. Abx- on azithromycin, Tamiflu 75 mg b.i.d. PFT when her respiratory status improves to assess the severity of her obstructive lung disease. GI and DVT prophylaxis. heparin 5000 units subcutaneous q.12 and Protonix 40 mg daily. Continue treatment plan
[2018-11-19] MEDS: Insulin NovoLOG Aspart Correctional Sugar Inj SQ SCH ×4 (10:55→21:05)
[2018-11-19] MEDS: LORazepam 0.5 MG Tablet PO PRN (10:56)
[2018-11-19] MEDS: Chlorhexidine 0.12% Oral Kit 15 ML UDC OROPHARYNG SCH ×2 (12:10→20:21)
[2018-11-19] MEDS: Azithromycin Inj 500 MG in Sodium Chlor 0.9% Inj 250 ML IV.SIG SCH (15:19)
[2018-11-19] MEDS: ALPRAZolam 0.25 MG Tablet PO PRN (19:57)
[2018-11-20] MEDS: Oral Hygiene Kit OROPHARYNG SCH ×4 (00:41→19:33)
[2018-11-20] MEDS: ALPRAZolam 0.25 MG Tablet PO PRN ×3 (03:59→20:00)
[2018-11-20] MEDS: Heparin - SQ 10,000 UNITS/ML Vial SQ SCH ×2 (03:59→16:09)
[2018-11-20] MEDS: MethylPREDNISolone Sod Succinate Inj 40 MG/ML Vial IV.PUSH SCH ×2 (05:28→19:36)
[2018-11-20 07:34] LABS: Hematocrit 49.6 % (35.0-46.0); Hemoglobin 16.5 gm/dL (11.6-15.3); Lymph # (Auto) 0.5 th/mm3 (1.0-4.8); Lymph % (Auto) 7.5 % (9.0-44.0); Mean Corpuscular HGB Conc 33.2 % (32.0-36.0); Mean Corpuscular Hemoglobin 32.8 pg (27.0-34.0); Mean Corpuscular Volume 98.7 fL (80.0-100.0); Mean Platelet Volume 7.8 fL (7.0-11.0); Mono # (Auto) 0.6 th/mm3 (0.0-0.9); Mono % (Auto) 8.4 % (0.0-8.0); Neut # (Auto) 5.8 th/mm3 (1.8-7.7); Neut % (Auto) 84.1 % (16.0-70.0); Platelet Count 163 th/mm3 (150-450); Red Blood Count 5.03 mil/mm3 (4.00-5.30); Red Cell Distribution Width 15.3 % (11.6-17.2); White Blood Count 6.8 th/mm3 (4.0-11.0)
[2018-11-20 08:02] LABS: Anion Gap 6 meq/L (5-15); Blood Urea Nitrogen 18 mg/dL (7-18); Calcium 8.2 mg/dL (8.5-10.1); Carbon Dioxide 30.1 meq/L (21.0-32.0); Chloride 106 meq/L (98-107); Glomerular Filtration Rate Greater Than 89 mL/min (>89); Glucose,Random 129 mg/dL (74-106); Sodium 142 meq/L (136-145)
[2018-11-20] MEDS: Morphine Inj 4 MG/ML Vial IV.PUSH PRN ×2 (08:15→19:22)
--- NOTE | 2018-11-20 10:08 | P.PNPL ---
Subjective Interval history: Patient is sitting in chair in NAD. Breathing better. Afebrile. Physical Exam Vital signs: Vital Signs 11/19/18 10:30 11/19/18 11:00 11/19/18 11:01 Temperature Pulse Rate 103 H 107 H 110 H Respiratory Rate 22 28 H 25 H Blood Pressure 166/107 H 197/119 H Pulse Oximetry 95 91 L 91 L 11/19/18 11:30 11/19/18 11:42 11/19/18 12:00 Temperature 98.3 F Pulse Rate 105 H 107 H 103 H Respiratory Rate 22 26 H 24 Blood Pressure 163/100 H 176/107 H Pulse Oximetry 92 L 93 L 11/19/18 12:12 11/19/18 12:30 11/19/18 13:00 Temperature Pulse Rate 102 H 102 H Respiratory Rate 22 23 24 Blood Pressure 165/106 H 145/91 H Pulse Oximetry 93 L 92 L 11/19/18 13:30 11/19/18 14:00 11/19/18 14:30 Temperature Pulse Rate 102 H 100 H 97 H Respiratory Rate 25 H 23 23 Blood Pressure 147/91 H 147/94 H 144/96 H Pulse Oximetry 92 L 92 L 93 L 11/19/18 15:00 11/19/18 15:30 11/19/18 16:00 Temperature 97.7 F Pulse Rate 108 H 107 H 111 H Respiratory Rate 31 H 23 30 H Blood Pressure 179/100 H 167/102 H 167/92 H Pulse Oximetry 90 L 97 89 L 11/19/18 16:01 11/19/18 16:08 11/19/18 16:30 Temperature Pulse Rate 114 H 104 H 113 H Respiratory Rate 23 17 22 Blood Pressure 167/92 H 145/94 H Pulse Oximetry 88 L 94 L 11/19/18 17:00 11/19/18 17:30 11/19/18 18:00 Temperature Pulse Rate 110 H 110 H 106 H Respiratory Rate 22 23 29 H Blood Pressure 143/85 H 148/103 H 165/103 H Pulse Oximetry 95 94 L 91 L 11/19/18 18:30 11/19/18 19:00 11/19/18 19:30 Temperature Pulse Rate 103 H 102 H 105 H Respiratory Rate 22 21 24 Blood Pressure 162/105 H 168/105 H 158/110 H Pulse Oximetry 96 94 L 94 L 11/19/18 20:00 11/19/18 20:28 11/19/18 20:30 Temperature Pulse Rate 103 H 94 H 101 H Respiratory Rate 28 H 20 26 H Blood Pressure 158/110 H 155/107 H Pulse Oximetry 93 L 93 L 93 L 11/19/18 21:00 11/19/18 21:30 11/19/18 22:00 Temperature Pulse Rate 97 H 96 H 92 H Respiratory Rate 24 23 24 Blood Pressure 149/100 H 147/90 H 149/94 H Pulse Oximetry 91 L 92 L 92 L 11/19/18 22:30 11/19/18 23:00 11/19/18 23:30 Temperature Pulse Rate 100 H 95 H 92 H Respiratory Rate 22 23 20 Blood Pressure 164/108 H 133/85 141/93 H Pulse Oximetry 92 L 93 L 93 L 11/19/18 23:50 11/20/18 00:00 11/20/18 00:30 Temperature Pulse Rate 88 99 H 105 H Respiratory Rate 20 23 30 H Blood Pressure 154/99 H 149/95 H Pulse Oximetry 93 L 91 L 11/20/18 01:00 11/20/18 01:19 11/20/18 01:30 Temperature Pulse Rate 113 H 106 H Respiratory Rate 28 H 24 21 Blood Pressure 148/96 H 153/93 H Pulse Oximetry 93 L 94 L 11/20/18 02:00 11/20/18 02:30 11/20/18 03:00 Temperature Pulse Rate 95 H 90 89 Respiratory Rate 23 23 24 Blood Pressure 143/87 H 147/89 H 151/94 H Pulse Oximetry 93 L 93 L 93 L 11/20/18 03:30 11/20/18 03:43 11/20/18 04:00 Temperature Pulse Rate 100 H 83 104 H Respiratory Rate 24 24 28 H Blood Pressure 154/98 H 146/98 H Pulse Oximetry 94 L 93 L 11/20/18 04:30 11/20/18 06:00 11/20/18 06:33 Temperature Pulse Rate 102 H 86 Respiratory Rate 26 H 22 Blood Pressure 119/79 Pulse Oximetry 93 L 11/20/18 07:36 Temperature Pulse Rate 98 H Respiratory Rate 17 Blood Pressure Pulse Oximetry 94 L Intake & Output 11/19/18 11/20/18 11/20/18 18:59 06:59 18:59 Intake Total 700 / 700 3000 / 3000 Output Total 900 / 900 300 / 300 Balance -200 / -200 2700 / 2700 Weight 77.5 kg Intake: IV 2250 / 2250 Azithromycin Inj 500 MG In NS 250 / 250 Inj 250 ML @ 250 mls/hr IV.SIG Q24H COLLIN Rx#:[id number] Oral 700 / 700 750 / 750 Output: Urine 900 / 900 Urine Amount (Catheter) 300 / 300 Female External 300 / 300 Other: # Voids 3 # Incontinent Voids 4 # Bowel Movements 0 - Constitutional no acute distress - Routine HEENT Exam Head: Present: normocephalic, atraumatic Eye: Present: EOMI, PERRL, normal accommodation, conjunctivae pink ENT: Present: mucous membranes moist - Routine Neck Exam Present: supple, full ROM, trachea midline - Routine Respiratory Exam Present: CTA bilaterally - Routine Cardiovascular Exam Present: RRR, S1, S2 - Routine Abdominal Exam Present: soft, normoactive bowel sounds - Routine Skin Exam Present: intact - Routine Neurological Exam Present: alert, oriented X3, CN II-XII intact - Urinary Catheter Management Indwelling Urethral Catheter Cath placed during this visit: yes, but has since been removed by the nurse Reason for continuing: Decision to DC catheter Insertion date: 11/15/18 Insertion time: 15:00 Removal date: 11/18/18 Removal time: 16:00 Female External Cath placed during this visit: no Assessment and Plan - Assessment (1) Acute hypoxemic respiratory failure Code(s): J96.01 - Acute respiratory failure with hypoxia Status: Acute Onset Date: ~11/14/18 (2) Asthma Code(s): J45.909 - Unspecified asthma, uncomplicated Status: Chronic Qualifiers: Asthma complication type: with acute exacerbation (3) Influenza A Code(s): J10.1 - Influenza due to other identified influenza virus with other respiratory manifestations Status: Acute (4) Chronic narcotic dependence Code(s): F11.20 - Opioid dependence, uncomplicated Status: Chronic (5) Tobacco abuse disorder Code(s): Z72.0 - Tobacco use Status: Chronic (6) Respiratory failure Code(s): J96.90 - Respiratory failure, unspecified, unspecified whether with hypoxia or hypercapnia Status: Acute Qualifiers: Chronicity: acute Respiratory failure complication: unspecified whether with hypoxia or hypercapnia Qualified Code(s): J96.00 - Acute respiratory failure, unspecified whether with hypoxia or hypercapnia - Plan 1. Acute hypoxemic and hypercapnic respiratory insufficiency. 2. Influenza pneumonia. 3. Chronic obstructive pulmonary disease. 4. Bronchospasm. 5. Tobacco abuse. Plan Continue to wean down oxygen and maintain sats >92%. Bronchodilators(DuoNeb ,Pulmicort nebs 0.5 mg q.12, Spiriva). Decrease Solu-Medrol 40mg IV Q12 BiPAP p.r.n. for respiratory distress. CXR 11/18: Basilar hypoaeration, no evidence of consolidating airspace disease. Abx- on azithromycin, Tamiflu 75 mg b.i.d. PFT when her respiratory status improves to assess the severity of her obstructive lung disease. GI and DVT prophylaxis. heparin 5000 units subcutaneous q.12 and Protonix 40 mg daily. Continue treatment plan
--- NOTE | 2018-11-20 13:26 | P.PNIM ---
Subjective Interval history: 53-year-old female admitted for respiratory failure secondary to a flareup of her asthma related to flu. Today she states she feels much better, is sitting up out of bed, still requiring 5 L of oxygen but overall has a sense that she is improving. Physical Exam Vital signs: Last Vital Signs Temp 97.7 F 11/19/18 16:00 Pulse 118 H 11/20/18 11:39 Resp 20 11/20/18 11:39 BP 119/79 11/20/18 04:30 Pulse Ox 94 L 11/20/18 07:36 Intake & Output 11/18/18 11/19/18 11/20/18 11/21/18 06:59 06:59 06:59 06:59 Intake Total 2891 / 2891 1572 / 1572 3700 / 3700 Output Total 2500 / 2500 1700 / 1700 1200 / 1200 Balance 391 / 391 -128 / -128 2500 / 2500 Weight 77.5 kg Narrative: GENERAL: Well-appearing, sitting up in her chair SKIN: Warm and dry, skin is flush HEAD: Normocephalic. EYES: No scleral icterus. No injection or drainage. NECK: Supple, trachea midline. No JVD or lymphadenopathy. CARDIOVASCULAR: Regular rate and rhythm without murmurs, gallops, or rubs. RESPIRATORY: Scattered wheezing and congestive sounds, no accessory muscle use. GASTROINTESTINAL: Abdomen soft, non-tender, nondistended. MUSCULOSKELETAL: No cyanosis, or edema. Urinary Catheter Management Indwelling Urethral Catheter: Cath placed during this visit: yes, but has since been removed by the nurse Insertion date: 11/15/18 Insertion time: 15:00 Removal date: 11/18/18 Removal time: 16:00 Female External: Cath placed during this visit: no Results Labs CBC & Chem 7: 11/20/18 06:46 11/20/18 06:46 Labs: Microbiology 11/14/18 11:00 Blood - Peripheral Aerobic Blood Culture - Final No growth in 5 days 11/14/18 11:00 Blood - Peripheral Anaerobic Blood Culture - Final No growth in 5 days 11/14/18 11:10 Blood - Peripheral Aerobic Blood Culture - Final No growth in 5 days 11/14/18 11:10 Blood - Peripheral Anaerobic Blood Culture - Final No growth in 5 days Assessment and Plan Plan Asthma/COPD exacerbation secondary to influenza A positive s/p intubation and extubation in the ICU Chest x-ray shows basilar hypoaeration status post extubation Sputum culture negative, urine negative for strep pneumo and Legionella Blood cultures remain negative Continue Solu-Medrol 60 mg IV every 8 hours, Pulmicort, Spiriva Continue Tamiflu twice daily Continue azithromycin 500 mg daily Appreciate pulmonology consult Borderline CHF 2D echocardiogram shows ejection fraction of 50-55%, left side pleural effusion present Consider that these findings are in the context of flu positivity and asthma exacerbation Recommend rechecking at a future date, outpatient follow-up Hypertension, anxiety These do seem to be related, blood pressure improved greatly after Ativan was added Continue clonidine and labetalol or hydralazine as needed DVT Prophylaxis Heparin Disposition Patient is still requiring 5 L of oxygen via nasal cannula to maintain oxygen at 93%, will keep in the ICU until she improves these parameters
[2018-11-20] MEDS: Azithromycin Inj 500 MG in Sodium Chlor 0.9% Inj 250 ML IV.SIG SCH (16:05)
[2018-11-20] MEDS: Tiotropium Bromide 18 MCG/ACT Inhaler INH SCH (16:06)
[2018-11-20] MEDS: Chlorhexidine 0.12% Oral Kit 15 ML UDC OROPHARYNG SCH ×2 (16:07→22:32)
[2018-11-20] MEDS: Insulin NovoLOG Aspart Correctional Sugar Inj SQ SCH ×4 (16:07→22:32)
[2018-11-20] MEDS: Pantoprazole Inj 40 MG Vial IV.PUSH SCH (16:07)
[2018-11-21] MEDS: Oral Hygiene Kit OROPHARYNG SCH ×3 (00:53→13:26)
[2018-11-21] MEDS: Heparin - SQ 10,000 UNITS/ML Vial SQ SCH (05:37)
[2018-11-21] MEDS: MethylPREDNISolone Sod Succinate Inj 40 MG/ML Vial IV.PUSH SCH ×2 (05:37→18:10)
[2018-11-21 05:51] LABS: Hemoglobin 15.8 gm/dL (11.6-15.3); Mean Corpuscular HGB Conc 33.5 % (32.0-36.0); Mean Corpuscular Hemoglobin 32.8 pg (27.0-34.0); Mean Corpuscular Volume 97.9 fL (80.0-100.0); Mean Platelet Volume 8.3 fL (7.0-11.0); Platelet Count 177 th/mm3 (150-450); Red Cell Distribution Width 15.3 % (11.6-17.2); White Blood Count 7.9 th/mm3 (4.0-11.0)
[2018-11-21] MEDS: ALPRAZolam 0.25 MG Tablet PO PRN ×3 (06:14→23:03)
[2018-11-21 06:15] LABS: Anion Gap 4 meq/L (5-15); Blood Urea Nitrogen 16 mg/dL (7-18); Carbon Dioxide 31.8 meq/L (21.0-32.0); Chloride 107 meq/L (98-107); Glomerular Filtration Rate Greater Than 89 mL/min (>89); Glucose,Random 85 mg/dL (74-106); Potassium 3.8 meq/L (3.5-5.1); Sodium 143 meq/L (136-145)
[2018-11-21] MEDS: Insulin NovoLOG Aspart Correctional Sugar Inj SQ SCH ×3 (08:46→18:10)
[2018-11-21] MEDS: Chlorhexidine 0.12% Oral Kit 15 ML UDC OROPHARYNG SCH (08:46)
[2018-11-21] MEDS: Tiotropium Bromide 18 MCG/ACT Inhaler INH SCH (08:47)
[2018-11-21] MEDS ORDERED: amLODIPine 5 MG Tablet PO ONE (10:05)
--- NOTE | 2018-11-21 10:13 | P.PNIM ---
Subjective Interval history: Patient says she is starting to feel better. She wants to be discharged home. She does not have any other complaints while on supplemental oxygen. Physical Exam Vital signs: Vital Signs 11/20/18 10:00 11/20/18 11:00 11/20/18 11:39 Pulse Rate 105 H 115 H 118 H Respiratory Rate 23 34 H 20 Blood Pressure 131/77 137/75 Pulse Oximetry 96 89 L 11/20/18 12:00 11/20/18 13:00 11/20/18 14:00 Pulse Rate 111 H 114 H 99 H Respiratory Rate 24 25 H 24 Blood Pressure 127/82 111/65 115/69 Pulse Oximetry 95 93 L 97 11/20/18 15:00 11/20/18 16:00 11/20/18 16:05 Pulse Rate 100 H 100 H 108 H Respiratory Rate 28 H 26 H 23 Blood Pressure 119/76 108/76 Pulse Oximetry 96 95 11/20/18 16:30 11/20/18 17:00 11/20/18 18:00 Pulse Rate 96 H 94 H Respiratory Rate 20 25 H 24 Blood Pressure 113/73 116/78 Pulse Oximetry 95 96 11/20/18 19:00 11/20/18 20:00 11/20/18 20:26 Pulse Rate 98 H 96 H 86 Respiratory Rate 25 H 24 22 Blood Pressure 111/74 141/74 H Pulse Oximetry 93 L 93 L 96 11/20/18 21:00 11/20/18 22:00 11/20/18 22:32 Pulse Rate 79 83 Respiratory Rate 22 20 16 Blood Pressure 123/76 114/74 Pulse Oximetry 94 L 94 L 11/20/18 23:00 11/21/18 00:00 11/21/18 00:01 Pulse Rate 79 82 86 Respiratory Rate 21 23 23 Blood Pressure 116/77 104/68 Pulse Oximetry 94 L 95 88 L 11/21/18 00:13 11/21/18 00:53 11/21/18 01:00 Pulse Rate 90 87 Respiratory Rate 22 20 21 Blood Pressure 110/71 Pulse Oximetry 95 11/21/18 02:00 11/21/18 03:00 11/21/18 03:54 Pulse Rate 97 H 81 80 Respiratory Rate 24 19 18 Blood Pressure 116/85 123/81 Pulse Oximetry 90 L 96 11/21/18 04:00 11/21/18 05:00 11/21/18 06:00 Pulse Rate 77 82 77 Respiratory Rate 22 20 25 H Blood Pressure 128/83 135/78 142/93 H Pulse Oximetry 97 95 92 L 11/21/18 08:05 Pulse Rate 90 Respiratory Rate 24 Blood Pressure Pulse Oximetry 95 Intake & Output 11/20/18 11/21/18 11/21/18 18:59 06:59 18:59 Intake Total 1680 / 1680 1250 / 1250 Output Total 900 / 900 700 / 700 Balance 780 / 780 550 / 550 Weight 77.5 kg Intake: IV 250 / 250 Azithromycin Inj 500 MG In NS 250 / 250 Inj 250 ML @ 250 mls/hr IV.SIG Q24H COLLIN Rx#:[id number] Oral 1680 / 1680 1000 / 1000 Output: Urine Amount (Catheter) 900 / 900 700 / 700 Female External 900 / 900 700 / 700 Other: # Incontinent Voids 4 # Bowel Movements 0 Narrative: General patient febrile on supplemental oxygen. HEENT extraocular movements are intact, clear oral mucosa. Cardiovascular S1-S2 audible, RRR, no murmurs rubs or gallops Respiratory wheezing on auscultation bilaterally Abdomen soft, nontender, nondistended, normal bowel sounds Extremities no edema Neuro patient moves all 4 extremities, sensation is intact bilaterally - Urinary Catheter Management Indwelling Urethral Catheter Cath placed during this visit: yes, but has since been removed by the nurse Reason for continuing: Decision to DC catheter Insertion date: 11/15/18 Insertion time: 15:00 Removal date: 11/18/18 Removal time: 16:00 Female External Cath placed during this visit: no Results - Labs CBC & Chem 7: 11/21/18 04:55 11/21/18 04:55 Laboratory Results - last 24 hr 11/14/18 11/20/18 11/20/18 18:45 16:25 21:28 WBC RBC Hgb Hct MCV MCH MCHC RDW Plt Count MPV Sodium Potassium Chloride Carbon Dioxide Anion Gap BUN Creatinine Estimated GFR POC Glucose 138 H 96 Random Glucose Calcium C. pneumoniae IgG Titer 1:128 H C. pneumoniae IgA Titer 1:64 H C. pneumoniae IgM Titer <1:10 C. pneumoniae Ab Interp Past infection 11/21/18 11/21/18 04:55 04:55 WBC 7.9 RBC 4.80 Hgb 15.8 H Hct 47.0 H MCV 97.9 MCH 32.8 MCHC 33.5 RDW 15.3 Plt Count 177 MPV 8.3 Sodium 143 Potassium 3.8 Chloride 107 Carbon Dioxide 31.8 Anion Gap 4 L BUN 16 Creatinine 0.58 Estimated GFR Greater than 89 POC Glucose Random Glucose 85 Calcium 8.0 L C. pneumoniae IgG Titer C. pneumoniae IgA Titer C. pneumoniae IgM Titer C. pneumoniae Ab Interp Assessment and Plan - Plan This patient is a 53-year-old female with a diagnosis of asthma who presented to the emergency department complaints of shortness of breath. She was subsequently admitted for story failure secondary to asthma exacerbation and found to be positive for influenza. Patient did require intubation and mechanical ventilation however has been extubated and is currently on supplemental oxygen. 1. Acute hypoxic hypercapnic cell failure secondary to asthma exacerbation and influenza. Status post intubation and extubation in the intensive care unit. Blood cultures are negative, sputum cultures negative. Continue breathing treatments and supplemental oxygen. Current O2 saturations are 95% on 5 L supplemental oxygen. We will continue to titrate the patient off supplemental O2. Continue IV steroids, dose decreased yesterday as per the pulmonary team. Continue azithromycin. We will continue to monitor the patient and likely transfer the patient out of the intensive care unit today. 2. Hypertension Clonidine stopped. Patient will be started on Norvasc. We will continue to monitor the patient's blood pressure and adjust his meds as needed. 3. Anxiety To use Xanax. Currently the patient does not appear anxious. Heparin for DVT prophylaxis. Patient will possibly be transferred to the [facility] floor later today. We will continue to titrate the patient off supplemental oxygen.
[2018-11-21] MEDS ORDERED: amLODIPine 5 MG Tablet PO SCH (10:15)
[2018-11-21] MEDS: Pantoprazole Inj 40 MG Vial IV.PUSH SCH (10:19)
--- NOTE | 2018-11-21 10:39 | P.PNPL ---
Subjective Interval history: Patient is lying in bed in NAD. On 5L oxygen. Afebrile. Physical Exam Vital signs: Vital Signs 11/20/18 11:00 11/20/18 11:39 11/20/18 12:00 Temperature Pulse Rate 115 H 118 H 111 H Respiratory Rate 34 H 20 24 Blood Pressure 137/75 127/82 Pulse Oximetry 89 L 95 11/20/18 13:00 11/20/18 14:00 11/20/18 15:00 Temperature Pulse Rate 114 H 99 H 100 H Respiratory Rate 25 H 24 28 H Blood Pressure 111/65 115/69 119/76 Pulse Oximetry 93 L 97 96 11/20/18 16:00 11/20/18 16:05 11/20/18 16:30 Temperature Pulse Rate 100 H 108 H Respiratory Rate 26 H 23 20 Blood Pressure 108/76 Pulse Oximetry 95 11/20/18 17:00 11/20/18 18:00 11/20/18 19:00 Temperature Pulse Rate 96 H 94 H 98 H Respiratory Rate 25 H 24 25 H Blood Pressure 113/73 116/78 111/74 Pulse Oximetry 95 96 93 L 11/20/18 20:00 11/20/18 20:26 11/20/18 21:00 Temperature Pulse Rate 96 H 86 79 Respiratory Rate 24 22 22 Blood Pressure 141/74 H 123/76 Pulse Oximetry 93 L 96 94 L 11/20/18 22:00 11/20/18 22:32 11/20/18 23:00 Temperature Pulse Rate 83 79 Respiratory Rate 20 16 21 Blood Pressure 114/74 116/77 Pulse Oximetry 94 L 94 L 11/21/18 00:00 11/21/18 00:01 11/21/18 00:13 Temperature Pulse Rate 82 86 90 Respiratory Rate 23 23 22 Blood Pressure 104/68 Pulse Oximetry 95 88 L 11/21/18 00:53 11/21/18 01:00 11/21/18 02:00 Temperature Pulse Rate 87 97 H Respiratory Rate 20 21 24 Blood Pressure 110/71 116/85 Pulse Oximetry 95 90 L 11/21/18 03:00 11/21/18 03:54 11/21/18 04:00 Temperature Pulse Rate 81 80 77 Respiratory Rate 19 18 22 Blood Pressure 123/81 128/83 Pulse Oximetry 96 97 11/21/18 05:00 11/21/18 06:00 11/21/18 07:00 Temperature Pulse Rate 82 77 81 Respiratory Rate 20 25 H 27 H Blood Pressure 135/78 142/93 H 124/76 Pulse Oximetry 95 92 L 93 L 11/21/18 08:00 11/21/18 08:01 11/21/18 08:05 Temperature 98.3 F Pulse Rate 95 H 93 H 90 Respiratory Rate 33 H 47 H 24 Blood Pressure 132/110 H Pulse Oximetry 91 L 87 L 95 11/21/18 09:00 11/21/18 10:00 Temperature Pulse Rate 96 H 93 H Respiratory Rate 28 H 24 Blood Pressure 131/80 114/67 Pulse Oximetry 92 L 96 Intake & Output 11/20/18 11/21/18 11/21/18 18:59 06:59 18:59 Intake Total 1680 / 1680 1250 / 1250 Output Total 900 / 900 700 / 700 Balance 780 / 780 550 / 550 Weight 77.5 kg Intake: IV 250 / 250 Azithromycin Inj 500 MG In NS 250 / 250 Inj 250 ML @ 250 mls/hr IV.SIG Q24H COLLIN Rx#:[id number] Oral 1680 / 1680 1000 / 1000 Output: Urine Amount (Catheter) 900 / 900 700 / 700 Female External 900 / 900 700 / 700 Other: # Incontinent Voids 4 # Bowel Movements 0 - Constitutional no acute distress - Routine HEENT Exam Head: Present: normocephalic, atraumatic Eye: Present: EOMI, PERRL, normal accommodation, conjunctivae pink ENT: Present: mucous membranes moist - Routine Neck Exam Present: supple, full ROM, trachea midline - Routine Respiratory Exam Present: CTA bilaterally - Routine Cardiovascular Exam Present: RRR, S1, S2 - Routine Abdominal Exam Present: soft, normoactive bowel sounds - Routine Extremities Exam Present: full ROM - Routine Skin Exam Present: intact, dry - Routine Neurological Exam Present: alert, oriented X3, CN II-XII intact - Urinary Catheter Management Indwelling Urethral Catheter Cath placed during this visit: yes, but has since been removed by the nurse Reason for continuing: Decision to DC catheter Insertion date: 11/15/18 Insertion time: 15:00 Removal date: 11/18/18 Removal time: 16:00 Female External Cath placed during this visit: no Assessment and Plan - Assessment (1) Acute hypoxemic respiratory failure Code(s): J96.01 - Acute respiratory failure with hypoxia Status: Acute Onset Date: ~11/14/18 (2) Asthma Code(s): J45.909 - Unspecified asthma, uncomplicated Status: Chronic Qualifiers: Asthma complication type: with acute exacerbation (3) Influenza A Code(s): J10.1 - Influenza due to other identified influenza virus with other respiratory manifestations Status: Acute (4) Chronic narcotic dependence Code(s): F11.20 - Opioid dependence, uncomplicated Status: Chronic (5) Tobacco abuse disorder Code(s): Z72.0 - Tobacco use Status: Chronic (6) Respiratory failure Code(s): J96.90 - Respiratory failure, unspecified, unspecified whether with hypoxia or hypercapnia Status: Acute Qualifiers: Chronicity: acute Respiratory failure complication: unspecified whether with hypoxia or hypercapnia Qualified Code(s): J96.00 - Acute respiratory failure, unspecified whether with hypoxia or hypercapnia - Plan 1. Acute hypoxemic and hypercapnic respiratory insufficiency. 2. Influenza pneumonia. 3. Chronic obstructive pulmonary disease. 4. Bronchospasm...improved 5. Tobacco abuse. Plan Wean down oxygen and maintain sats >92%. Bronchodilators(DuoNeb ,Pulmicort nebs 0.5 mg q.12, Spiriva). Solu-Medrol 40mg IV Q12 BiPAP p.r.n. for respiratory distress. CXR 11/18: Basilar hypoaeration, no evidence of consolidating airspace disease. Abx- on azithromycin, s/p PFT when her respiratory status improves to assess the severity of her obstructive lung disease. GI and DVT prophylaxis. heparin 5000 units subcq.12 and Protonix 40 mg daily. Increase activity
[2018-11-22] MEDS: Oral Hygiene Kit OROPHARYNG SCH ×4 (02:36→16:21)
[2018-11-22] MEDS: Chlorhexidine 0.12% Oral Kit 15 ML UDC OROPHARYNG SCH ×2 (02:39→08:25)
[2018-11-22] MEDS: Insulin NovoLOG Aspart Correctional Sugar Inj SQ SCH ×5 (02:45→21:05)
[2018-11-22] MEDS: Heparin - SQ 10,000 UNITS/ML Vial SQ SCH ×3 (04:00→17:53)
[2018-11-22] MEDS: MethylPREDNISolone Sod Succinate Inj 40 MG/ML Vial IV.PUSH SCH ×2 (06:06→11:59)
[2018-11-22] MEDS: ALPRAZolam 0.25 MG Tablet PO PRN ×4 (06:34→23:25)
[2018-11-22] MEDS: Tiotropium Bromide 18 MCG/ACT Inhaler INH SCH (09:53)
[2018-11-22] MEDS: Pantoprazole Inj 40 MG Vial IV.PUSH SCH (09:53)
--- NOTE | 2018-11-22 10:43 | P.PNPL ---
Subjective Interval history: Patient is sitting in chair in NAD. On 4L oxygen. Afebrile. Physical Exam Vital signs: Vital Signs 11/21/18 10:49 11/21/18 11:00 11/21/18 12:00 Temperature 98.6 F Pulse Rate 97 H 93 H Respiratory Rate 15 25 H 19 Blood Pressure 113/70 121/76 Pulse Oximetry 92 L 92 L 11/21/18 12:10 11/21/18 12:11 11/21/18 13:00 Temperature Pulse Rate 101 H 102 H Respiratory Rate 24 37 H Blood Pressure Pulse Oximetry 92 L 94 L 11/21/18 13:01 11/21/18 14:00 11/21/18 15:00 Temperature Pulse Rate 104 H 100 H 102 H Respiratory Rate 42 H 27 H 22 Blood Pressure 134/78 122/91 H Pulse Oximetry 94 L 94 L 91 L 11/21/18 15:29 11/21/18 15:49 11/21/18 16:00 Temperature Pulse Rate 103 H 110 H 115 H Respiratory Rate 30 H 24 48 H Blood Pressure 130/73 Pulse Oximetry 93 L 93 L 11/21/18 16:18 11/21/18 16:23 11/21/18 19:42 Temperature Pulse Rate 100 H 104 H 90 Respiratory Rate 26 H 25 H 18 Blood Pressure 122/75 122/73 Pulse Oximetry 96 11/21/18 19:43 11/21/18 20:00 11/22/18 00:00 Temperature 98.3 F 98 F Pulse Rate 91 H 87 Respiratory Rate 18 18 Blood Pressure 137/85 147/87 H Pulse Oximetry 94 L 3 L 90 L 11/22/18 00:30 11/22/18 04:00 11/22/18 04:14 Temperature 98 F Pulse Rate 63 82 81 Respiratory Rate 17 18 18 Blood Pressure 168/93 H Pulse Oximetry 94 L 95 11/22/18 07:00 11/22/18 07:10 11/22/18 08:00 Temperature 97.9 F Pulse Rate 85 86 Respiratory Rate 14 20 Blood Pressure 172/98 H Pulse Oximetry 92 L 94 L Intake & Output 11/21/18 11/22/18 11/22/18 18:59 06:59 18:59 Output Total 1200 / 1200 Balance -1200 / -1200 Weight 77.5 kg Output: Urine 1200 / 1200 Other: # Voids 1 2 1 - Constitutional no acute distress - Routine HEENT Exam Head: Present: normocephalic, atraumatic Eye: Present: EOMI, PERRL, normal accommodation, conjunctivae pink ENT: Present: mucous membranes moist - Routine Neck Exam Present: supple, full ROM, trachea midline - Routine Respiratory Exam Present: CTA bilaterally - Routine Cardiovascular Exam Present: RRR, S1, S2 - Routine Abdominal Exam Present: soft, normoactive bowel sounds - Routine Extremities Exam Present: full ROM, pulses intact - Routine Skin Exam Present: intact, dry - Routine Neurological Exam Present: alert, oriented X3, CN II-XII intact - Urinary Catheter Management Indwelling Urethral Catheter Cath placed during this visit: yes, but has since been removed by the nurse Insertion date: 11/15/18 Insertion time: 15:00 Removal date: 11/18/18 Removal time: 16:00 Female External Cath placed during this visit: no Assessment and Plan - Assessment (1) Acute hypoxemic respiratory failure Code(s): J96.01 - Acute respiratory failure with hypoxia Status: Acute Onset Date: ~11/14/18 (2) Asthma Code(s): J45.909 - Unspecified asthma, uncomplicated Status: Chronic Qualifiers: Asthma complication type: with acute exacerbation (3) Influenza A Code(s): J10.1 - Influenza due to other identified influenza virus with other respiratory manifestations Status: Acute (4) Chronic narcotic dependence Code(s): F11.20 - Opioid dependence, uncomplicated Status: Chronic (5) Tobacco abuse disorder Code(s): Z72.0 - Tobacco use Status: Chronic (6) Respiratory failure Code(s): J96.90 - Respiratory failure, unspecified, unspecified whether with hypoxia or hypercapnia Status: Acute Qualifiers: Chronicity: acute Respiratory failure complication: unspecified whether with hypoxia or hypercapnia Qualified Code(s): J96.00 - Acute respiratory failure, unspecified whether with hypoxia or hypercapnia - Plan 1. Acute hypoxemic and hypercapnic respiratory insufficiency. 2. Influenza pneumonia. 3. Chronic obstructive pulmonary disease. 4. Hx Asthma 5. Tobacco abuse. Plan Continue to wean down oxygen and maintain sats >92%. Bronchodilators(DuoNeb ,Pulmicort nebs 0.5 mg q.12, Spiriva). Decrease Solu-Medrol 40mg IV daily BiPAP p.r.n. for respiratory distress. CXR 11/18: Basilar hypoaeration, no evidence of consolidating airspace disease. Check CXR d/c Azithromycin ( Has been on Azithromycin since 11/14), s/p Tamiflu Observe off abx. GI and DVT prophylaxis. heparin 5000 units subcq.12 and Protonix 40 mg daily.
--- NOTE | 2018-11-22 14:46 | P.DIET ---
Nutritional Evaluation Type of nutrition evaluation: follow-up Nutrition consult regarding: Tube Feeding (TFing d/c'ed) Objective - Diagnosis respiratory failure, COPD, influenza - Objective % IBW: 136 (IBW = 115lb) Body Weight Used for Calculations: Actual (71kg) Energy Needs - Lower Range (kCal/kg): 25 Energy Needs - Upper Range (kCal/kg): 30 Lower Limit kCal/kg (kCals): 1,775 Upper Limit kCal/kg (kCals): 2,130 Lower Limit Protein Factor (Grams per Kg): 1.1 Upper Limit Protein Factor (Grams per Kg): 1.3 Lower Protein Needs (Protein): 78 Upper Protein Needs (Protein): 92 Dietitian Reviewed in Medical Record: Current diet, Curent medications, Intake & Output, Labs, Medical history, Tube feeding Diet Order: Regular Objective Comments: PMH: bronchitis Assessment Assessment: Pt extubated and TFing d/c'ed on 11/17. Pt is tolerating a Regular diet and has a BMI of 30.3. Consult RD if needed. Recommendations: Continue current POC.
--- NOTE | 2018-11-22 18:15 | P.PNIM ---
Subjective Interval history: 53yo f admitted w acute influenza pna and respiratory failure s/p intubation, extubated and transferred to the medical floor slowly improving pt seen and examined , she states improving a little, very anxious, no cp, no productive cough Physical Exam Vital signs: Last Vital Signs Temp 97.8 F 11/22/18 15:20 Pulse 104 H 11/22/18 17:17 Resp 18 11/22/18 17:17 BP 135/85 11/22/18 15:20 Pulse Ox 92 L 11/22/18 17:17 Intake & Output 11/20/18 11/21/18 11/22/18 11/23/18 06:59 06:59 06:59 06:59 Intake Total 3700 / 3700 2930 / 2930 Output Total 1200 / 1200 1600 / 1600 1200 / 1200 Balance 2500 / 2500 1330 / 1330 -1200 / -1200 Weight 77.5 kg 77.5 kg 77.5 kg wdwn 53yo w f aaox 3 pleasant, anxious heart s1s2 reg lungs good air momvent some wheeze, no dullness bases abd soft nondt pos bs ext no edema no calf tenderness l Urinary Catheter Management Indwelling Urethral Catheter: Cath placed during this visit: yes, but has since been removed by the nurse Insertion date: 11/15/18 Insertion time: 15:00 Removal date: 11/18/18 Removal time: 16:00 Female External: Cath placed during this visit: no Results Labs CBC & Chem 7: 11/21/18 04:55 11/21/18 04:55 Assessment and Plan Plan ACUTE HYPOXIC HYPERCAPNIC RESPIRATORY FAILURE s/p intubation and mechanical ventilation now on nc cont pulm tx, wean oxygen ACUTE INFLUENZA A PNA post tamiflu - better ASTHMA chronic w acute exacerbation better, nebs wean steroids, oxygen HTN - cont norvasc better ANXIETY - chronic cont xanax prn TOBACCO USE nicotine addiction - cessation counseled, nicoderm prn dvt prophylaxis - heparin disposition - home when stable.
[2018-11-23] MEDS: Heparin - SQ 10,000 UNITS/ML Vial SQ SCH ×2 (03:47→16:18)
[2018-11-23] MEDS: Chlorhexidine 0.12% Oral Kit 15 ML UDC OROPHARYNG SCH ×3 (03:56→20:45)
[2018-11-23] MEDS: Oral Hygiene Kit OROPHARYNG SCH ×4 (03:56→16:19)
--- NOTE | 2018-11-23 05:40 | XR ---
EXAM DATE: 11/23/2018 5:36 AM EST AGE/SEX: 53 years / Female INDICATIONS: COPD. CLINICAL DATA: This is the patient's subsequent encounter. Patient reports that signs and symptoms h ave been present for 1 week and indicates a pain score of 0/10. MEDICAL/SURGICAL HISTORY: . Acute hypoxemic respiratory failure. Asthma. Influenza A. Smoker. B ronchitis. section. COMPARISON: [facility], CHEST 1V SINGLE AP, 11/18/2018. . FINDINGS: A single AP view of the chest demonstrates the lungs to be symmetrically aerated without evidence of mass, infiltrate or effusion. The heart size remains at the upper limits of normal with no evidence of pulmonary edema. Osseous structures are intact. CONCLUSION: Stable appearance with no acute cardiopulmonary disease. Electronically signed by: Emmanuel Wahl MD Board Certified Radiologist 11/23/2018 5:38 AM EST
[2018-11-23] MEDS: ALPRAZolam 0.25 MG Tablet PO PRN ×4 (05:57→23:56)
[2018-11-23] MEDS: Insulin NovoLOG Aspart Correctional Sugar Inj SQ SCH ×4 (07:39→21:43)
[2018-11-23] MEDS: MethylPREDNISolone Sod Succinate Inj 40 MG/ML Vial IV.PUSH SCH (09:09)
[2018-11-23] MEDS: Tiotropium Bromide 18 MCG/ACT Inhaler INH SCH (09:11)
[2018-11-23] MEDS: dilTIAZem CD 120 MG Capsule PO SCH (19:47)
[2018-11-23 19:55] VITALS: RESP 18
[2018-11-23] MEDS: Budesonide-Formoterol 160/4.5 MCG 6 GM Inhaler INH SCH (20:44)
[2018-11-23] MEDS: predniSONE 20 MG Tablet PO SCH (20:44)
[2018-11-24] MEDS: Heparin - SQ 10,000 UNITS/ML Vial SQ SCH (04:05)
[2018-11-24] MEDS: ALPRAZolam 0.25 MG Tablet PO PRN ×2 (05:18→09:31)
[2018-11-24] MEDS: Oral Hygiene Kit OROPHARYNG SCH ×4 (07:23→12:09)
[2018-11-24] MEDS: Insulin NovoLOG Aspart Correctional Sugar Inj SQ SCH ×2 (08:06→12:09)
[2018-11-24 08:50] VITALS: PULSE 101; O2SAT 93
[2018-11-24 09:19] VITALS: BP 132/91; TEMP 98.1
[2018-11-24] MEDS: Chlorhexidine 0.12% Oral Kit 15 ML UDC OROPHARYNG SCH (09:30)
[2018-11-24] MEDS: predniSONE 20 MG Tablet PO SCH (09:31)
[2018-11-24] MEDS: dilTIAZem CD 120 MG Capsule PO SCH (09:31)
[2018-11-24] MEDS: Budesonide-Formoterol 160/4.5 MCG 6 GM Inhaler INH SCH (09:34)
[2018-11-24] MEDS: Tiotropium Bromide 18 MCG/ACT Inhaler INH SCH (10:37)
--- NOTE | 2018-11-24 12:44 | P.DS ---
DS: Providers Date of admission: 11/14/18 14:29 Primary care physician: No Primary Care Physician Consults: 11/18/18 09:48 Consult to Hospitalist Routine Consulting Provider: Martina Vu Reason for Consultation: Assume care in am 11/19/18 Notified:: Service Spoke with:: KHANG Date Notified:: 11/18/18 Time Notified:: 10:06 Ordering Provider: VANNESA 11/18/18 09:49 Consult to Pulmonology Routine Consulting Provider: Tanisha Garduno Reason for Consultation: COPD resp insuff Notified:: Service Spoke with:: KHANG Date Notified:: 11/18/18 Time Notified:: 10:09 Ordering Provider: VANNESA Brief History from admission: This is a 53-year-old female that presented to [facility] emergency department. Per report the patient had worsening dyspnea over the last 3 days, such that she reported to the emergency department. The patient received Ativan and morphine in the emergency room. Imaging and laboratory studies were reviewed the patient was noted to be positive for influenza a antigen Tamiflu was initiated per the patient also was noted to report chronic ingestion of opioids by inhalation/smoking. The patient's medical history is significant for asthma, chronic opioid use via inhalation. Initiation of BiPAP was refused by the patient .The patient is at extreme risk for respiratory failure the patient was emergently transferred to [facility] and admitted to the ICU. Critical care medicine was consulted for management. per upon my evaluation of the patient patient was noted to be on a nonrebreather mask O2 sat 92%. I discussed with patient the criticality of her illness and requirement necessary to utilize BiPAP as she was at risk for possible emergent intubation. The patient agreed to utilize BiPAP. Currently the patient is satting at 95-97% on BiPAP 12/5 with FiO2 of 40%. The patient is very lethargic not cooperative in obtaining history and physical information obtained from medical records and staff. DS: Diagnosis Discharge Diagnosis (1) Acute hypoxemic respiratory failure: Status: Acute (2) Asthma: Status: Chronic (3) Influenza A: Status: Acute (4) Chronic narcotic dependence: Status: Chronic (5) Tobacco abuse disorder: Status: Chronic DS: Summary Time Spent with Patient Total time spent providing and/or coordinating discharge services: Results Labs on day of discharge: Labs from last 24 hours 11/24/18 11/24/18 11/23/18 11:48 07:59 21:41 POC Glucose 84 92 129 H 11/23/18 17:35 POC Glucose 182 H Impressions ITS Impressions Chest X-Ray 11/23/18 00:00 CONCLUSION: Stable appearance with no acute cardiopulmonary disease. Discharge Plan Discharge Disposition Patient Disposition: Discharge Home Discharge Condition Condition: Critical Discharge Order Discharge Orders: Discharge Order (Routine); Ordered 11/24/18 Ordered By: Katina Landers Physicians Team Primary Care Provider: Primary Care Jacklyn Castanon Attending Provider: Katina Landers Other Providers: Tanisha Garudno Rxs /Orders / Referrals /Forms Prescriptions: New buspirone 5 mg Tablet 5 mg PO BID Qty: 30 RF: 0 ipratropium-albuterol 0.5 mg-3 mg(2.5 mg base)/3 mL Solution For Nebulization 1 amp NEB TID NEB Qty: 30 RF: 0 hydrocodone-acetaminophen 5-325 mg Tablet 1 tab PO Q4H PRN (Reason: pain 6-10) Qty: 12 RF: 0 prednisone 20 mg Tablet 20 mg PO BID Qty: 10 RF: 0 diltiazem HCl 120 mg Capsule,Extended Release 24hr 120 mg PO DAILY Qty: 30 RF: 0 tiotropium bromide [Spiriva with HandiHaler] 18 mcg Capsule, W/Inhalation Device 18 mcg INH DAILY Qty: 1 RF: 0 budesonide-formoterol [Symbicort] 160-4.5 mcg/actuation Hfa Aerosol Inhaler 2 puff INH BID Qty: 1 RF: 0 Discontinued albuterol sulfate 1.25 mg/3 mL Solution For Nebulization 1.25 mg INHALATION Q4H PRN (Reason: Wheezing) RF: 0 albuterol sulfate 90 mcg/actuation Hfa Aerosol Inhaler 1 puff INHALATION Q4-6H PRN (Reason: Wheezing) RF: 0 Ambulatory Orders / Order Sets / DME: Nebulizer Adult Kit (1 kit) (Routine) Location: Determined by Patient Ordered By: Katina Landers Referrals: Primary Care Jacklyn Castanon [Primary Care Provider] - See Instructions ( Please call the physician's office to book the appointment to be seen within [2d].) Discharge Instructions Patient Printed Instructions: Influenza (DC), Hypoxia (GEN), Acute Respiratory Failure (GEN) Additional Instructions: 11/24/18 Prescriptions for Mildred sent home with patient. All other prescriptions sent to patient preferred pharmacy. Status ED Status: Left Department Discharge Information Discharge Date/Time: 11/24/18 14:28
== END 2018-11-24 14:28 | disposition home or self-care (01) | DRG 208 ==
LOC: PHED 10:34 → PHEDH 14:29 → HIMC 15:55 → N05 11-21 17:17
PROVIDERS: ADMIT Internal Medicine; ATTEND Internal Medicine
CPT/HCPCS: 31500; 36600; 71010; 71045; 76937; 80048; 80053; 81001; 82805; 82948; 82962; 83520; 83605; 83735; 83880; 84100; 84484; 85025; 85027; 85610; 85730; 86631; 86632; 86738; 87040; 87070; 87205; 87275; 87276; 87449; 87641; 87804; 90765; 90775; 93005; 93306; 94002; 94003; 94150; 94618; 94620; 94640; 94656; 94657; 94664; 94665; 94667; 94668; 96365; 96375; 97110; 97162; 97530; 99285; C9113; J0360; J0456; J0692; J0696; J1644; J1815; J1940; J2060; J2270; J2704; J2920; J2930; J3010; J7030; J7050; J7506; J7512